=== PATIENT | female | born 1990 | race Caucasian/White ===

== ENCOUNTER → 2017-01-22 | Outpatient (CLI) | payer OTHER ==
--- NOTE | 2017-01-22 15:55 | US ---
EXAMINATION TYPE: US OB <= 14 wk fetus DATE OF EXAM: 01/22/2017 3:30 PM COMPARISON: NONE CLINICAL HISTORY: Z36 CONFIRM DATES. Confirm Dates, pt has no complaints at this time EXAM PERFORMED: Transabdominal (TA) EXAM MEASUREMENTS: GESTATIONAL AGE / DATING Physician Established: (12 weeks/4 days) EDC: 08/02/2017 Dates by LMP: Unknown Dates by First Scan: No prior Dates by Current Scan for: (12 weeks/1 days) EDC: 08/05/2017 MATERNAL ANATOMY Uterus: 11.0 x 5.6 x 7.8 Right Ovary: 3.5 x 2.1 x 3.0 cm Left Ovary: 3.3 x 1.6 x 2.8 Post CDS / Adnexa: wnl Presence of free fluid: No Presence of subchorionic bleed: No GESTATION / SURVEY CRL: 5.5 cm (12 weeks/1 days) MSD: wnl Heart Rate: 178 bpm Rhythm: Normal IUP: Viable IUP TECHNOLOGIST IMPRESSION: Single, viable IUP/ No abnormality seen at this time IMPRESSION: Single viable intrauterine corresponding to ultrasound age 12 weeks 1 day with estimated da te of delivery 05 August 2017 by today's exam
== END | disposition home or self-care (01) ==
LOC: RADUSWWP 15:16
PROVIDERS: ATTEND Obstetrics & Gynecology
DX: Z36 Encounter for antenatal screening of mother (principal); Z3A.12 12 weeks gestation of pregnancy
CPT/HCPCS: 76801

== ENCOUNTER → 2017-02-04 | Outpatient (CLI) | payer OTHER ==
[2017-02-04 14:35] LABS: CH 30.4; CHCM 35.7; HCT 36.2 % (34.0-46.0); HDW 2.74; HGB 13.3 gm/dL (11.4-16.0); MCH 31.3 pg (25.0-35.0); MCHC 36.6 g/dL (31.0-37.0); MCV 85.5 fL (80.0-100.0); Mean Platelet Volume 8.1; RBC 4.24 m/uL (3.80-5.40)
[2017-02-04 14:45] LABS: Glucose 81 mg/dL (74-99); Non-African American GFR(MDRD) >60 (>60 ml/min/1.73 sqM)
[2017-02-04 15:15] LABS: Hepatitis B Surface Ag Index 0.05
[2017-02-05 08:16] LABS: HIV-1/HIV-2 Ab Screen NONREAC (NON REAC)
== END | disposition home or self-care (01) ==
LOC: LABWHC1 14:09
PROVIDERS: ATTEND Obstetrics & Gynecology
DX: Z34.82 Encounter for supervision of other normal pregnancy, second trimester (principal); Z3A.00 Weeks of gestation of pregnancy not specified
CPT/HCPCS: 36415; 82565; 82947; 85027; 86762; 86780; 86850; 86900; 86901; 87340; 87389

== ENCOUNTER 2017-02-11 22:31 | Emergency (ER) | payer OTHER ==
[2017-02-11] MEDS ORDERED: SODIUM CHLORIDE 0.9% 1,000 ML IV ONE (23:36)
--- NOTE | 2017-02-11 23:44 | ED ---
General Adult HPI - General Chief complaint: Syncope Stated complaint: Blackouts (15wk preg) Time Seen by Provider: 02/11/17 23:17 Source: patient Mode of arrival: ambulatory Limitations: no limitations - History of Present Illness Initial comments: This patient is a 26-year-old woman who presents to be evaluated for a couple of what her fianc is calling episodes. He describes 2 periods lasting each somewhere around 10-15 minutes, where he was not able to gain her attention. In the first episode she was sitting on the couch and she appeared to be looking down and also scratching her wrist at the same time. He states that he attempted to gain her attention but she seemed to ignore him and this lasted for somewhere around 10-15 minutes. Following that she was appropriately responsive. She did not have any complaints. They later went to bed and while she was lying in bed she had another similar episode. The patient does not have memory of these 2 episodes. She currently is alert and is denying any complaints. She is not having any pains. She is not having dyspnea. She denies any change in urination or any vaginal discharge. She states that she believes she is about 15 weeks but is not having any abdominal pains. She has not had change in bowel movements. -: hour(s) Consistency: now resolved Improves with: none Worsens with: none Associated Symptoms: denies other symptoms Treatments Prior to Arrival: none - Related Data Home Medications Medication Instructions Recorded Confirmed Fsy-Hhbu-Fithx Acid 1 cap PO DAILY 02/11/17 02/11/17 [-U Capsule (formulary)] Previous Rx's Medication Instructions Recorded Amoxicillin 500 mg PO Q8H #21 capsule 02/12/17 Allergies Allergy/AdvReac Type Severity Reaction Status Date / Time bupropion HCl Allergy Unknown Verified 02/11/17 23:12 [From Wellbutrin] citalopram hydrobromide Allergy Unknown Verified 02/11/17 23:12 [From Celexa] duloxetine HCl Allergy Unknown Verified 02/11/17 23:12 [From Cymbalta] escitalopram oxalate Allergy Unknown Verified 02/11/17 23:12 [From Lexapro] Review of Systems ROS Statement: Those systems with pertinent positive or pertinent negative responses have been documented in the HPI. ROS Other: All systems not noted in ROS Statement are negative. Constitutional: Denies: fever, chills Respiratory: Denies: cough, dyspnea Cardiovascular: Denies: chest pain, palpitations Gastrointestinal: Denies: abdominal pain, vomiting, diarrhea Genitourinary: Denies: dysuria Musculoskeletal: Denies: back pain Skin: Denies: rash Neurological: Denies: headache, weakness, numbness Past Medical History Past Medical History: No Reported History Additional Past Medical History / Comment(s): Gilbert's syndrome, Raynaud History of Any Multi-Drug Resistant Organisms: None Reported Past Surgical History: Cholecystectomy, Orthopedic Surgery Additional Past Surgical History / Comment(s): Left ring finger surgery Past Anesthesia/Blood Transfusion Reactions: No Reported Reaction Past Psychological History: ADD/ADHD, Anxiety, Bipolar, Depression, Panic Disorder, PTSD Additional Psychological History / Comment(s): Patient is open with [facility]. Smoking Status: Current every day smoker Past Alcohol Use History: None Reported Additional Past Alcohol Use History / Comment(s): She is a smoker of 1PPD x 10 years. Past Drug Use History: Marijuana Additional Drug Use History / Comment(s): daily marijuana use, past hx. drug use -not currently - Past Family History Father Family Medical History: COPD, Coronary Artery Disease (CAD) Additional Family Medical History / Comment(s): Father is alive at 67 years of age with history of CAD and COPD Mother Family Medical History: Diabetes Mellitus, Hypertension Additional Family Medical History / Comment(s): Mother is alive with history of DM and HTN. Brother(s) Additional Family Medical History / Comment(s): Patient has 5 siblings with no major medical problems. General Exam Limitations: no limitations General appearance: alert, in no apparent distress Head exam: Present: atraumatic, normocephalic Eye exam: Present: normal appearance. Absent: scleral icterus, conjunctival injection ENT exam: Present: normal oropharynx Neck exam: Present: normal inspection, full ROM Respiratory exam: Present: normal lung sounds bilaterally. Absent: respiratory distress, wheezes, rales, rhonchi, stridor Cardiovascular Exam: Present: regular rate, normal rhythm, normal heart sounds. Absent: systolic murmur, diastolic murmur, rubs, gallop GI/Abdominal exam: Present: soft. Absent: distended, tenderness, guarding, rebound, mass Extremities exam: Present: normal inspection, normal capillary refill. Absent: pedal edema, calf tenderness Back exam: Present: normal inspection. Absent: CVA tenderness (R), CVA tenderness (L) Neurological exam: Present: alert, oriented X3, CN II-XII intact, normal gait. Absent: motor sensory deficit Skin exam: Present: warm, dry, intact, normal color. Absent: rash Course Vital Signs 02/11/17 02/12/17 23:00 00:58 Temperature 98.7 F 98.9 F Pulse Rate 100 70 Respiratory 20 18 Rate Blood Pressure 121/71 104/55 O2 Sat by Pulse 98 98 Oximetry Medical Decision Making - Lab Data Result diagrams: 02/11/17 23:35 02/11/17 23:35 Lab Results 02/11/17 02/11/17 02/11/17 Range/Units 23:35 23:35 23:35 WBC 12.6 H (3.8-10.6) k/uL RBC 4.29 (3.80-5.40) m/uL Hgb 13.1 (11.4-16.0) gm/dL Hct 36.8 (34.0-46.0) % MCV 85.8 (80.0-100.0) fL MCH 30.6 (25.0-35.0) pg MCHC 35.7 (31.0-37.0) g/dL RDW 13.0 (11.5-15.5) % Plt Count 173 (150-450) k/uL Neutrophils % 61 % Lymphocytes % 31 % Monocytes % 5 % Eosinophils % 1 % Basophils % 0 % Neutrophils # 7.6 (1.3-7.7) k/uL Lymphocytes # 3.9 (1.0-4.8) k/uL Monocytes # 0.7 (0-1.0) k/uL Eosinophils # 0.1 (0-0.7) k/uL Basophils # 0.0 (0-0.2) k/uL Sodium 135 L (137-145) mmol/L Potassium 3.6 (3.5-5.1) mmol/L Chloride 103 (98-107) mmol/L Carbon Dioxide 23 (22-30) mmol/L Anion Gap 9 mmol/L BUN 6 L (7-17) mg/dL Creatinine 0.50 L (0.52-1.04) mg/dL Est GFR (MDRD) Af Amer >60 (>60 ml/min/1.73 sqM) Est GFR (MDRD) Non-Af >60 (>60 ml/min/1.73 sqM) Glucose 85 (74-99) mg/dL Calcium 9.2 (8.4-10.2) mg/dL Total Bilirubin 1.0 (0.2-1.3) mg/dL AST 14 (14-36) U/L ALT 24 (9-52) U/L Alkaline Phosphatase 79 (38-126) U/L Total Protein 6.6 (6.3-8.2) g/dL Albumin 3.8 (3.5-5.0) g/dL Urine Color Yellow Urine Appearance Cloudy H (Clear) Urine pH 6.0 (5.0-8.0) Ur Specific [place] 1.020 (1.001-1.035) Urine Protein Trace H (Negative) Urine Glucose (UA) Negative (Negative) Urine Ketones Negative (Negative) Urine Blood Trace H (Negative) Urine Nitrite Negative (Negative) Urine Bilirubin Negative (Negative) Urine Urobilinogen 4.0 (<2.0) mg/dL Ur Leukocyte Esterase Moderate H (Negative) Urine RBC 19 H (0-5) /hpf Urine WBC 16 H (0-5) /hpf Ur Squamous Epith Cells 18 H (0-4) /hpf Calcium Oxalate Crystal Occasional H (None) /hpf Urine Bacteria Occasional H (None) /hpf Urine Mucus Few H (None) /hpf Urine Opiates Screen Not Detected (NotDetected) Ur Oxycodone Screen Not Detected (NotDetected) Urine Methadone Screen Not Detected (NotDetected) Ur Propoxyphene Screen Not Detected (NotDetected) Ur Barbiturates Screen Not Detected (NotDetected) U Tricyclic Antidepress Not Detected (NotDetected) Ur Phencyclidine Scrn Not Detected (NotDetected) Ur Amphetamines Screen Not Detected (NotDetected) U Methamphetamines Scrn Not Detected (NotDetected) U Benzodiazepines Scrn Not Detected (NotDetected) Urine Cocaine Screen Not Detected (NotDetected) U Marijuana (THC) Screen Detected H (NotDetected) Disposition Clinical Impression: UTI (lower urinary tract infection), Episode of altered consciousness Disposition: HOME SELF-CARE Condition: Good Instructions: Urinary Tract Infection in (ED) Prescriptions: Amoxicillin 500 mg PO Q8H #21 capsule Referrals: Abhay Tan MD [Primary Care Provider] - 1-2 days Lalo Rosado MD [STAFF PHYSICIAN] - 1-2 days
[2017-02-12 00:06] LABS: Appearance,Urine Cloudy (Clear); Bacteria,Urine Occasional /hpf; Basophils % (A) 0 %; Bilirubin,Urine Negative (Negative); CH 30.4; CHCM 35.5; Calcium Oxalate Crystals,Urine Occasional /hpf; Eosinophils # (A) 0.1 k/uL (0-0.7); Eosinophils % (A) 1 %; Glucose,Urine (UA) Negative (Negative); HCT 36.8 % (34.0-46.0); HGB 13.1 gm/dL (11.4-16.0); Ketones,Urine Negative (Negative); Leukocyte Esterase,Urine Moderate (Negative); Luc # (Auto) 0.27; Luc % (Auto) 2; Lymphocytes # (A) 3.9 k/uL (1.0-4.8); Lymphocytes % (A) 31 %; MCH 30.6 pg (25.0-35.0); MCHC 35.7 g/dL (31.0-37.0); MCV 85.8 fL (80.0-100.0); Mean Platelet Volume 7.4; Monocytes # (A) 0.7 k/uL (0-1.0); Monocytes % (A) 5 %; Mucus,Urine Few /hpf; Neutrophils # (A) 7.6 k/uL (1.3-7.7); Neutrophils % (A) 61 %; Nitrite,Urine Negative (Negative); Particle Count 9232; Protein,Urine Trace (Negative); RBC 4.29 m/uL (3.80-5.40); RBC,Urine 19 /hpf (0-5); Squamous Epithelial Cell,Urine 18 /hpf (0-4); UA Billing (MACRO vs. MICRO) MICRO; WBC 12.6 k/uL (3.8-10.6); WBC (Perox) 12.77; WBC,Urine 16 /hpf (0-5)
[2017-02-12 00:12] LABS: ALT 24 U/L (9-52); AST 14 U/L (14-36); Alkaline Phosphatase 79 U/L (38-126); Anion Gap 9 mmol/L; Blood Urea Nitrogen 6 mg/dL (7-17); Calcium 9.2 mg/dL (8.4-10.2); Carbon Dioxide 23 mmol/L (22-30); Chloride 103 mmol/L (98-107); Glucose 85 mg/dL (74-99); Non-African American GFR(MDRD) >60 (>60 ml/min/1.73 sqM); Potassium 3.6 mmol/L (3.5-5.1); Sodium 135 mmol/L (137-145); Total Protein 6.6 g/dL (6.3-8.2)
[2017-02-12 00:59] VITALS: BP 104/55; PULSE 70; RESP 18; TEMP 98.9
[2017-02-12] MEDS ORDERED: AMOXICILLIN 500 MG CAP PO STA (01:24)
== END 2017-02-12 01:43 | disposition home or self-care (01) ==
LOC: EC 22:31
DX: O23.42 Unspecified infection of urinary tract in pregnancy, second trimester (principal); O99.89 Other specified diseases and conditions complicating pregnancy, childbirth and the puerperium; R40.4 Transient alteration of awareness; O99.332 Smoking (tobacco) complicating pregnancy, second trimester; F17.200 Nicotine dependence, unspecified, uncomplicated; Z88.8 Allergy status to other drugs, medicaments and biological substances; Z3A.15 15 weeks gestation of pregnancy; Z79.899 Other long term (current) drug therapy
CPT/HCPCS: 36415; 80053; 80306; 81001; 85025; 96360; 99284

== ENCOUNTER 2017-03-08 20:01 | Emergency (ER) | payer OTHER ==
[2017-03-08 20:20] VITALS: RESP 18
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
[2017-03-08 21:43] LABS: Basophils # (A) 0.1 k/uL (0-0.2); Basophils % (A) 0 %; CH 31.6; CHCM 35.1; Eosinophils # (A) 0.1 k/uL (0-0.7); Eosinophils % (A) 1 %; HDW 2.54; HGB 12.5 gm/dL (11.4-16.0); Luc # (Auto) 0.21; Luc % (Auto) 2; Lymphocytes % (A) 31 %; MCH 31.4 pg (25.0-35.0); MCHC 34.7 g/dL (31.0-37.0); MCV 90.5 fL (80.0-100.0); Monocytes # (A) 0.5 k/uL (0-1.0); Monocytes % (A) 4 %; Neutrophils % (A) 62 %; RBC 3.98 m/uL (3.80-5.40); RDW 13.1 % (11.5-15.5); WBC 12.8 k/uL (3.8-10.6)
[2017-03-08 21:50] LABS: Appearance,Urine Clear (Clear); Bilirubin,Urine Negative (Negative); Glucose,Urine (UA) Negative (Negative); Ketones,Urine Negative (Negative); Leukocyte Esterase,Urine Negative (Negative); Nitrite,Urine Negative (Negative); PH, Urine 6.5 (5.0-8.0); Protein,Urine Negative (Negative); Specific Gravity,Urine 1.007 (1.001-1.035); UA Billing (MACRO vs. MICRO) CHEM; Urobilinogen,Urine <2.0 mg/dL (<2.0)
[2017-03-08 21:59] LABS: ALT 20 U/L (9-52); AST 14 U/L (14-36); Alkaline Phosphatase 83 U/L (38-126); Anion Gap 10 mmol/L; Blood Urea Nitrogen 3 mg/dL (7-17); Calcium 9.2 mg/dL (8.4-10.2); Carbon Dioxide 23 mmol/L (22-30); Chloride 106 mmol/L (98-107); Glucose 77 mg/dL (74-99); Non-African American GFR(MDRD) >60 (>60 ml/min/1.73 sqM); Potassium 3.2 mmol/L (3.5-5.1); Sodium 139 mmol/L (137-145); Total Bilirubin 0.9 mg/dL (0.2-1.3); Total Protein 6.6 g/dL (6.3-8.2)
[2017-03-08 22:16] LABS: HCG,Quantitative Serum 11598.3 mIU/mL
[2017-03-08 23:56] VITALS: BP 106/57; PULSE 75; TEMP 98.2
--- NOTE | 2017-03-09 00:09 | US ---
EXAM: US After First Trimester, Transabdominal. CLINICAL HISTORY: Reason: Pain TECHNIQUE: Real-time transabdominal obstetrical ultrasound of the maternal pelvis and a second or third trimester with image documentation. COMPARISON: No relevant prior studies available. FINDINGS: Fetus: no visualized anomalies Heart rate: heart rate is measured at 165 bpm. Presentation:transverse Placenta: Unremarkable. No abruption. Amniotic fluid: Amniotic fluid index measures 12.3 cm. Anatomy: Visualized anatomy is normal. BIOMETRICS EDC: growth indices correspond to an approximate sonographic age of 18 weeks and 4 days. Approximate EDC by this ultrasound is 08/05/17. GA by US: 18 weeks and 4 days. EFW: 258 grams MATERNAL: Uterus: Unremarkable. No myometrial mass. Cervix: Unremarkable as visualized. Closed. Free fluid: No free fluid. IMPRESSION: Single live intrauterine gestation corresponding to an approximate sonographic age of 18 weeks and 4 days. Approximate EDC by this ultrasound is 08/05/17.
== END 2017-03-08 23:55 | disposition home or self-care (01) ==
LOC: EC 20:01
DX: O99.89 Other specified diseases and conditions complicating pregnancy, childbirth and the puerperium (principal); R10.31 Right lower quadrant pain; Z3A.24 24 weeks gestation of pregnancy; F17.200 Nicotine dependence, unspecified, uncomplicated; Z88.8 Allergy status to other drugs, medicaments and biological substances; Z79.899 Other long term (current) drug therapy; Z90.49 Acquired absence of other specified parts of digestive tract
CPT/HCPCS: 36415; 76805; 80053; 81003; 84702; 85025; 86900; 86901; 99284

== ENCOUNTER 2017-03-13 00:16 | Emergency (ER) | payer OTHER ==
--- NOTE | 2017-03-13 01:56 | ED ---
General Adult HPI - General Chief complaint: Abdominal Pain Stated complaint: Spotting, abd pain Time Seen by Provider: 03/13/17 00:52 Source: patient, RN notes reviewed Mode of arrival: wheelchair Limitations: no limitations - History of Present Illness Initial comments: Patient is a 26-year-old female since emergency room for evaluation of vaginal spotting. Patient states is about 19 weeks . Patient is . Patient states this first time that she noticed spotting since her . Patient states she has a confirmed IUP. Patient states she's been following up with Dr. Krishnan. Patient states been having minimal cramping in her abdomen. Patient states the spotting began shortly before arrival here. Patient denies passing any clots. Patient denies chest pain or shortness of breath. Patient denies headache or dizziness. Patient denies nausea or vomiting. Patient states the spotting worried her so she thought she should be evaluated. Patient denies any other symptoms or complaints at this time. Patient denies pain or burning during urination, trouble urinating or blood in urine. Patient denies history of STDs. - Related Data Home Medications Medication Instructions Recorded Confirmed Gmd-Bvzy-Ehiva Acid 1 cap PO DAILY 02/11/17 03/13/17 [-U Capsule (formulary)] Allergies Allergy/AdvReac Type Severity Reaction Status Date / Time bupropion HCl Allergy Unknown Verified 03/13/17 00:29 [From Wellbutrin] citalopram hydrobromide Allergy Unknown Verified 03/13/17 00:29 [From Celexa] duloxetine HCl Allergy Unknown Verified 03/13/17 00:29 [From Cymbalta] escitalopram oxalate Allergy Unknown Verified 03/13/17 00:29 [From Lexapro] Review of Systems ROS Statement: Those systems with pertinent positive or pertinent negative responses have been documented in the HPI. ROS Other: All systems not noted in ROS Statement are negative. Past Medical History Past Medical History: No Reported History Additional Past Medical History / Comment(s): Gilbert's syndrome, Raynaud History of Any Multi-Drug Resistant Organisms: None Reported Past Surgical History: Cholecystectomy, Orthopedic Surgery Additional Past Surgical History / Comment(s): Left ring finger surgery Past Anesthesia/Blood Transfusion Reactions: No Reported Reaction Past Psychological History: ADD/ADHD, Anxiety, Bipolar, Depression, Panic Disorder, PTSD Additional Psychological History / Comment(s): Patient is open with [facility]. Smoking Status: Current every day smoker Past Alcohol Use History: None Reported Additional Past Alcohol Use History / Comment(s): She is a smoker of 1PPD x 10 years. Past Drug Use History: None Reported Additional Drug Use History / Comment(s): daily marijuana use, past hx. drug use -not currently - Past Family History Father Family Medical History: COPD, Coronary Artery Disease (CAD) Additional Family Medical History / Comment(s): Father is alive at 67 years of age with history of CAD and COPD Mother Family Medical History: Diabetes Mellitus, Hypertension Additional Family Medical History / Comment(s): Mother is alive with history of DM and HTN. Brother(s) Additional Family Medical History / Comment(s): Patient has 5 siblings with no major medical problems. General Exam - General Exam Comments Initial Comments: Sitting in exam room, no acute distress. Limitations: no limitations General appearance: alert, in no apparent distress Head exam: Present: atraumatic, normocephalic, normal inspection Eye exam: Present: normal appearance ENT exam: Present: normal exam Neck exam: Present: normal inspection Respiratory exam: Present: normal lung sounds bilaterally. Absent: respiratory distress Cardiovascular Exam: Present: regular rate, normal rhythm, normal heart sounds GI/Abdominal exam: Present: soft, normal bowel sounds. Absent: distended, tenderness, guarding, rebound, rigid External exam: Present: normal external exam Speculum exam: Present: normal speculum exam, vaginal discharge. Absent: vaginal bleeding By manual exam: Present: normal by manual exam Extremities exam: Present: normal inspection Back exam: Present: normal inspection Neurological exam: Present: alert, oriented X3, CN II-XII intact, normal gait Psychiatric exam: Present: normal affect, normal mood Skin exam: Present: warm, dry, intact, normal color. Absent: rash Course Vital Signs 03/13/17 03/13/17 00:27 03:00 Temperature 98.0 F 98.4 F Pulse Rate 18 L 72 Respiratory 18 16 Rate Blood Pressure 111/56 118/76 O2 Sat by Pulse 100 98 Oximetry Medical Decision Making - Medical Decision Making Patient is a 26-year-old female presents emergency room for evaluation of vaginal spotting. Patient is about 19 weeks . Patient is . No bleeding noted on pelvic exam. Patient denies any pain at the moment. heart tones within normal limits. Type and screen was ordered last week and she is B positive. Advised patient to follow-up with [facility]. Patient states she understands everything that was discussed with her. Return parameters discussed. Case discussed with Dr. Boston. - Lab Data Result diagrams: 03/13/17 01:50 03/13/17 01:50 Lab Results 03/13/17 03/13/17 03/13/17 Range/Units 01:50 01:50 01:50 WBC 11.2 H (3.8-10.6) k/uL RBC 3.71 L (3.80-5.40) m/uL Hgb 11.4 (11.4-16.0) gm/dL Hct 33.3 L (34.0-46.0) % MCV 89.7 (80.0-100.0) fL MCH 30.7 (25.0-35.0) pg MCHC 34.2 (31.0-37.0) g/dL RDW 13.0 (11.5-15.5) % Plt Count 158 (150-450) k/uL Neutrophils % 59 % Lymphocytes % 33 % Monocytes % 5 % Eosinophils % 1 % Basophils % 0 % Neutrophils # 6.7 (1.3-7.7) k/uL Lymphocytes # 3.8 (1.0-4.8) k/uL Monocytes # 0.5 (0-1.0) k/uL Eosinophils # 0.1 (0-0.7) k/uL Basophils # 0.0 (0-0.2) k/uL Sodium 137 (137-145) mmol/L Potassium 3.4 L (3.5-5.1) mmol/L Chloride 106 (98-107) mmol/L Carbon Dioxide 23 (22-30) mmol/L Anion Gap 8 mmol/L BUN 5 L (7-17) mg/dL Creatinine 0.50 L (0.52-1.04) mg/dL Est GFR (MDRD) Af Amer >60 (>60 ml/min/1.73 sqM) Est GFR (MDRD) Non-Af >60 (>60 ml/min/1.73 sqM) Glucose 89 (74-99) mg/dL Calcium 8.9 (8.4-10.2) mg/dL Total Bilirubin 0.5 (0.2-1.3) mg/dL AST 11 L (14-36) U/L ALT 22 (9-52) U/L Alkaline Phosphatase 75 (38-126) U/L Total Protein 5.6 L (6.3-8.2) g/dL Albumin 3.1 L (3.5-5.0) g/dL Amylase 39 (30-110) U/L Lipase 53 (23-300) U/L Urine Color Yellow Urine Appearance Clear (Clear) Urine pH 6.0 (5.0-8.0) Ur Specific [place] 1.006 (1.001-1.035) Urine Protein Negative (Negative) Urine Glucose (UA) Negative (Negative) Urine Ketones Negative (Negative) Urine Blood Negative (Negative) Urine Nitrite Negative (Negative) Urine Bilirubin Negative (Negative) Urine Urobilinogen <2.0 (<2.0) mg/dL Ur Leukocyte Esterase Negative (Negative) Trichomonas Ag (Rapid) (Negative) 03/13/17 Range/Units 02:30 WBC (3.8-10.6) k/uL RBC (3.80-5.40) m/uL Hgb (11.4-16.0) gm/dL Hct (34.0-46.0) % MCV (80.0-100.0) fL MCH (25.0-35.0) pg MCHC (31.0-37.0) g/dL RDW (11.5-15.5) % Plt Count (150-450) k/uL Neutrophils % % Lymphocytes % % Monocytes % % Eosinophils % % Basophils % % Neutrophils # (1.3-7.7) k/uL Lymphocytes # (1.0-4.8) k/uL Monocytes # (0-1.0) k/uL Eosinophils # (0-0.7) k/uL Basophils # (0-0.2) k/uL Sodium (137-145) mmol/L Potassium (3.5-5.1) mmol/L Chloride (98-107) mmol/L Carbon Dioxide (22-30) mmol/L Anion Gap mmol/L BUN (7-17) mg/dL Creatinine (0.52-1.04) mg/dL Est GFR (MDRD) Af Amer (>60 ml/min/1.73 sqM) Est GFR (MDRD) Non-Af (>60 ml/min/1.73 sqM) Glucose (74-99) mg/dL Calcium (8.4-10.2) mg/dL Total Bilirubin (0.2-1.3) mg/dL AST (14-36) U/L ALT (9-52) U/L Alkaline Phosphatase (38-126) U/L Total Protein (6.3-8.2) g/dL Albumin (3.5-5.0) g/dL Amylase (30-110) U/L Lipase (23-300) U/L Urine Color Urine Appearance (Clear) Urine pH (5.0-8.0) Ur Specific [place] (1.001-1.035) Urine Protein (Negative) Urine Glucose (UA) (Negative) Urine Ketones (Negative) Urine Blood (Negative) Urine Nitrite (Negative) Urine Bilirubin (Negative) Urine Urobilinogen (<2.0) mg/dL Ur Leukocyte Esterase (Negative) Trichomonas Ag (Rapid) Negative (Negative) Disposition Clinical Impression: Threatened miscarriage Disposition: HOME SELF-CARE Condition: Good Instructions: Threatened Miscarriage (ED) Additional Instructions: Refrain from sexual intercourse or heavy lifting for the next 7-10 days. Please follow-up with [facility] in 24-48 hours. If any new symptom arises or symptoms worsen, return to ER as soon as possible. Referrals: Gabriel Campos MD [Primary Care Provider] - 1-2 days Marlen Krishnan DO [Doctor of Osteopathic Medicine] - 1-2 days Time of Disposition: 02:28
[2017-03-13 02:03] LABS: Appearance,Urine Clear (Clear); Basophils % (A) 0 %; Bilirubin,Urine Negative (Negative); CH 31.8; CHCM 35.6; Eosinophils # (A) 0.1 k/uL (0-0.7); Eosinophils % (A) 1 %; Glucose,Urine (UA) Negative (Negative); HCT 33.3 % (34.0-46.0); HDW 2.56; HGB 11.4 gm/dL (11.4-16.0); Ketones,Urine Negative (Negative); Leukocyte Esterase,Urine Negative (Negative); Luc # (Auto) 0.19; Luc % (Auto) 2; Lymphocytes # (A) 3.8 k/uL (1.0-4.8); Lymphocytes % (A) 33 %; MCH 30.7 pg (25.0-35.0); MCHC 34.2 g/dL (31.0-37.0); MCV 89.7 fL (80.0-100.0); Mean Platelet Volume 7.8; Monocytes # (A) 0.5 k/uL (0-1.0); Monocytes % (A) 5 %; Neutrophils # (A) 6.7 k/uL (1.3-7.7); Neutrophils % (A) 59 %; Nitrite,Urine Negative (Negative); Protein,Urine Negative (Negative); RBC 3.71 m/uL (3.80-5.40); Specific Gravity,Urine 1.006 (1.001-1.035); UA Billing (MACRO vs. MICRO) CHEM; Urobilinogen,Urine <2.0 mg/dL (<2.0); WBC 11.2 k/uL (3.8-10.6); WBC (Perox) 10.91
[2017-03-13 02:14] LABS: ALT 22 U/L (9-52); AST 11 U/L (14-36); Alkaline Phosphatase 75 U/L (38-126); Amylase 39 U/L (30-110); Anion Gap 8 mmol/L; Blood Urea Nitrogen 5 mg/dL (7-17); Calcium 8.9 mg/dL (8.4-10.2); Carbon Dioxide 23 mmol/L (22-30); Chloride 106 mmol/L (98-107); Glucose 89 mg/dL (74-99); Non-African American GFR(MDRD) >60 (>60 ml/min/1.73 sqM); Potassium 3.4 mmol/L (3.5-5.1); Sodium 137 mmol/L (137-145); Total Bilirubin 0.5 mg/dL (0.2-1.3); Total Protein 5.6 g/dL (6.3-8.2)
[2017-03-13 03:01] VITALS: BP 118/76; PULSE 72; RESP 16; TEMP 98.4
== END 2017-03-13 03:01 | disposition home or self-care (01) ==
LOC: EC 00:16
DX: O20.0 Threatened abortion (principal); Z3A.19 19 weeks gestation of pregnancy; F17.200 Nicotine dependence, unspecified, uncomplicated; Z79.899 Other long term (current) drug therapy; Z88.8 Allergy status to other drugs, medicaments and biological substances
CPT/HCPCS: 36415; 80053; 81003; 82150; 83690; 85025; 87070; 87205; 87491; 87591; 87808; 99284

== ENCOUNTER 2017-06-09 03:38 | Inpatient (IN) | payer OTHER ==
[2017-06-09] MEDS ORDERED: LIDOCAINE 1% (PF) 10 MG/ML (30 ML SDV) SQ PRN (03:55)
[2017-06-09] MEDS ORDERED: TERBUTALINE 1 MG/ML VIAL SQ PRN (03:55)
[2017-06-09] MEDS ORDERED: OXYTOCIN 10 UNIT/ML 1 ML VIAL IM PRN (03:55)
[2017-06-09] MEDS ORDERED: CARBOPROST TROMETHAMINE 250 MCG/ML 1 ML AMP IM PRN (03:55)
[2017-06-09] MEDS ORDERED: METHYLERGONOVINE 0.2 MG/ML 1 ML AMP IM PRN (03:55)
[2017-06-09] MEDS ORDERED: LACTATED RINGERS 1,000 ML IV SCH ×2 (04:00)
[2017-06-09] MEDS ORDERED: AMPICILLIN 2,000 MG in SODIUM CHLORIDE 0.9% 100 ML IVPB STA (04:14)
[2017-06-09] MEDS ORDERED: BETAMET ACET-BETAMETH SOD PHOS 6 MG/ML VIAL IM SCH (04:15)
[2017-06-09 04:29] LABS: Basophils % (A) 0 %; CH 31.7; Eosinophils # (A) 0.1 k/uL (0-0.7); Eosinophils % (A) 1 %; HCT 36.3 % (34.0-46.0); HDW 2.64; HGB 12.5 gm/dL (11.4-16.0); Luc # (Auto) 0.27; Luc % (Auto) 2; Lymphocytes # (A) 2.7 k/uL (1.0-4.8); Lymphocytes % (A) 19 %; MCH 31.3 pg (25.0-35.0); MCHC 34.5 g/dL (31.0-37.0); MCV 90.8 fL (80.0-100.0); Mean Platelet Volume 8.2; Monocytes # (A) 0.7 k/uL (0-1.0); Monocytes % (A) 5 %; Neutrophils # (A) 10.3 k/uL (1.3-7.7); Neutrophils % (A) 74 %; RBC 3.99 m/uL (3.80-5.40); RDW 12.8 % (11.5-15.5); WBC 14.1 k/uL (3.8-10.6); WBC (Perox) 14.62
[2017-06-09 04:55] LABS: INR 0.9 (<1.2); Partial Thromboplastin Time 23.7 sec (22.0-30.0); Prothrombin Time 9.4 sec (9.0-12.0)
--- NOTE | 2017-06-09 05:00 | P.HPOB ---
History of Present Illness H&P Date: 06/09/17 Chief Complaint: Contractions This is a 26-year-old female 1 para 0 at 32-2/7 weeks with an estimated date of confinement of 08/02/2017, who presented to labor and delivery by EMS after feeling contractions through the night. She started feeling some contractions at approximately 8 PM but went to bed and then woke up with them at about midnight. They became stronger and then she called EMS at approximately 2:30 in the morning. Upon arrival she was found to be lillian every 3-4 minutes with some bloody show. Her care has been with Dr. Krishnan and has been complicated by a shortened cervix. She has been followed with maternal medicine as recently as last week. There has been no change in the cervical length and she has not been on any other medications during the . She did have a LEEP procedure in the past. She is not receive steroids during this . Obstetrical history: First Gynecologic history: No history of sexual transmitted diseases other than HPV on her Pap. Review of Systems Constitutional: Denies chills, Denies fever Eyes: denies blurred vision, denies pain Cardiovascular: Denies chest pain, Denies shortness of breath Respiratory: Denies cough Gastrointestinal: Reports abdominal pain (Contractions) Genitourinary: Reports abnormal vaginal bleeding, Reports pelvic pain, Reports Musculoskeletal: Reports low back pain Neurological: Denies numbness, Denies weakness Psychiatric: Reports anxiety, Reports depression Past Medical History Past Medical History: No Reported History Additional Past Medical History / Comment(s): Gilbert's syndrome, Raynaud History of Any Multi-Drug Resistant Organisms: None Reported Past Surgical History: Cholecystectomy, Orthopedic Surgery Additional Past Surgical History / Comment(s): Left ring finger surgery Past Anesthesia/Blood Transfusion Reactions: No Reported Reaction Past Psychological History: Bipolar Smoking Status: Current every day smoker Past Alcohol Use History: None Reported Past Drug Use History: Marijuana (Last used approximate 3 weeks ago per patient) - Past Family History Father Family Medical History: COPD, Coronary Artery Disease (CAD) Additional Family Medical History / Comment(s): Father is alive at 67 years of age with history of CAD and COPD Mother Family Medical History: Diabetes Mellitus, Hypertension Additional Family Medical History / Comment(s): Mother is alive with history of DM and HTN. Brother(s) Additional Family Medical History / Comment(s): Patient has 5 siblings with no major medical problems. Medications and Allergies Home Medications Medication Instructions Recorded Confirmed Type Ypo-Dcfv-Diyxi Acid 1 cap PO DAILY 02/11/17 03/13/17 History [-U Capsule (formulary)] Allergies Allergy/AdvReac Type Severity Reaction Status Date / Time bupropion HCl Allergy Unknown Verified 06/09/17 03:55 [From Wellbutrin] citalopram hydrobromide Allergy Unknown Verified 06/09/17 03:55 [From Celexa] duloxetine HCl Allergy Unknown Verified 06/09/17 03:55 [From Cymbalta] escitalopram oxalate Allergy Unknown Verified 06/09/17 03:55 [From Lexapro] Exam Osteopathic Statement: *. No significant issues noted on an osteopathic structural exam other than those noted in the History and Physical/Consult. - Vital Signs Vital signs: Intake and Output 06/08/17 06/08/17 06/09/17 14:59 22:59 06:59 Other: Weight 78.018 kg Patient Weight 06/09/17 06:59 Weight 78.018 kg HEENT: Within normal limits Heart: Regular rate and rhythm Lungs: Clear to auscultation bilaterally Abdomen: Cervix: Initially in triage is 6-7 cm/90%/bulging bag, presenting part not palpable. Upon my arrival, bedside ultrasound did confirm vertex presentation and she is noted to be completely dilated. Artificial rupture membranes is carried out with essentially clear fluid noted. heart tones: Reactive Contractions: Every 2-3 minutes Extremities: Negative Homans Results Result Diagrams: 06/09/17 04:15 Abnormal Lab Results - Last 24 Hours (Table) 06/09/17 Range/Units 04:15 WBC 14.1 H (3.8-10.6) k/uL Neutrophils # 10.3 H (1.3-7.7) k/uL Assessment and Plan (1) 32 weeks gestation of Status: Acute (2) labor in second trimester with delivery in third trimester Status: Acute Plan: Plan is admission for active labor. She was given 1 dose of Celestone while in triage. Pediatrics was notified. Expectant management.
--- NOTE | 2017-06-09 05:02 | P.PROBDLV ---
Vaginal Delivery Note - . Vaginal Delivery Note: The patient progressed to complete dilation prior to my arrival. Once I arrived I did perform artificial rupture membranes and clear fluid was noted. At this time she began pushing. She pushed for a couple pushes and infant's head came to a crown and then delivered across the perineum followed by a nuchal hand and the remainder of the body. Nuchal cord times one was reduced around the with delivery. Nose and mouth were bulb suctioned immediately after delivery. was placed on mother's abdomen and cord was clamped and cut. was then taken immediately to the nursery. Placenta delivered shortly thereafter, intact, with a three-vessel cord. Uterus did contract well after oxytocin was given and uterine massage was carried out. Inspection of the perineum revealed some mild abrasions but no active bleeding. Estimated blood loss is approximately 100 mL's. Mother is in stable condition and baby is being evaluated in the nursery. A viable male infant was noted with scores of 8 at 1 minute and 8 at 5 minutes and weight of 3 lbs. 4 oz. or 1480 g. Baby will be transferred due to prematurity.
[2017-06-09] MEDS ORDERED: IBUPROFEN 600 MG TAB PO PRN (05:12)
[2017-06-09] MEDS ORDERED: diphenhydrAMINE 25 MG CAP PO PRN (05:12)
[2017-06-09] MEDS ORDERED: MEASLES-MUMPS-RUBELLA VACC/PF 12,500 UNIT/0.5 ML VIAL SQ ONE (05:12)
[2017-06-09] MEDS ORDERED: WITCH HAZEL 1 EACH MED..PAD TOPICAL PRN (05:12)
[2017-06-09] MEDS ORDERED: LANOLIN CREAM 5 GM TUBE TOPICAL PRN (05:12)
[2017-06-09] MEDS ORDERED: ZOLPIDEM 5 MG TAB PO PRN (05:12)
[2017-06-09] MEDS ORDERED: Acetaminophen-Codeine 300-30mg TAB PO PRN ×2 (05:12)
[2017-06-09] MEDS ORDERED: diphenhydrAMINE 50 MG/ML 1 ML VIAL IVP PRN ×2 (05:12)
[2017-06-09] MEDS ORDERED: SIMETHICONE 80 MG CHEWABLE PO PRN (05:12)
[2017-06-09] MEDS ORDERED: diphenhydrAMINE 50 MG CAP PO PRN (05:12)
[2017-06-09] MEDS ORDERED: BENZOCAINE/MENTHOL SPRAY 1 GM/SPRAY AEROSOL TOPICAL PRN (05:12)
[2017-06-09] MEDS ORDERED: HYDROCORTISONE 2.5% RECTAL CREAM 30 GM TUBE RECTAL PRN (05:12)
[2017-06-09] MEDS ORDERED: ACETAMINOPHEN TAB 325 MG TAB PO PRN (05:12)
--- NOTE | 2017-06-09 05:13 | P.DS ---
Providers Date of admission: 06/09/17 03:56 Expected date of discharge: 06/09/17 Attending physician: Marlen Krishnan Primary care physician: Marlen Krishnan - Discharge Diagnosis(es) (1) 32 weeks gestation of Current Visit: Yes Status: Acute (2) labor in second trimester with delivery in third trimester Current Visit: Yes Status: Acute Hospital Course: This is a 26-year-old female 1 para 0 at 32-2/7 weeks who presented in labor and delivered a viable male vaginally. The infant is being transferred to another facility due to prematurity. She therefore wants to go with her baby. Her bleeding has been minimal since the delivery. She has been up without difficulty. She is having no significant pain. Lochia is decreasing. Vital signs are stable. Abdomen is soft with fundus firm and nontender. Extremities show negative Homans. Impression is status post vaginal delivery of a viable day #0. Plan is to discharge home today so she can go with her baby. She will follow up with Dr. Krishnan in 6 weeks for her check. She will be given a prescription for ibuprofen. She is advised to call the office if she has any further questions or concerns prior to her appointment time. Procedures: Spontaneous vaginal delivery of a viable male on 06/09/2017 Patient Condition at Discharge: Stable Plan - Discharge Summary New Discharge Prescriptions: New Ibuprofen [Motrin] 600 mg PO Q6HR PRN #60 tab PRN Reason: Mild Pain Or Fever >= 100.5 Continue Gtq-Fvja-Gzcjn Acid [-U Capsule (formulary)] 1 cap PO DAILY Discharge Medication List Szw-Bgls-Utmuh Acid [-U Capsule (formulary)] 1 cap PO DAILY 09/19 [History] Ibuprofen [Motrin] 600 mg PO Q6HR PRN #60 tab 06/09/17 [Rx] Follow up Appointment(s)/Referral(s): Marlen Krishnan DO [Primary Care Provider] - 6 Weeks Activity/Diet/Wound Care/Special Instructions: Instructions 1. Do not begin any exercise program for 3 weeks. 2. Do not resume sexual relations for 3 weeks or longer if uncomfortable. 3. You may take tub baths or showers at any time. 4. You may use tampons if desired after 3 weeks. 5. Keep the area of episiotomy (stitches) clean and dry. 6. If you are not nursing, wear a good fitting, supportive bra during the day and limit fluid intake for at least 1 week to prevent breast engorgement. 7. Call the office, [phone], within the next week to make appointment for your 6 week checkup if it has not already been made. 8. Report any of the following occurrences to the doctor promptly: a. Heavy, excessive bleeding b. Chills, fever c. Burning or frequency of urination d. Pain or redness and breasts if nursing e. Increasing pain or swelling in episiotomy (stitches). In addition to the above instructions, the following additional should be followed: 1. No heavy lifting or straining (exercising) until after 6 week checkup. 2. Keep abdominal incision clean and dry: You may wear a dressing if more comfortable. 3. Make office appointment for 10 days after going home or as instructed by her doctor. Discharge Disposition: HOME SELF-CARE
[2017-06-09] MEDS ORDERED: OXYTOCIN 20 UNITS/1000 ML NS 1,000 ML IV SCH (05:15)
[2017-06-09 06:57] VITALS: RESP 16
[2017-06-09] MEDS ORDERED: SENNOSIDES-DOCUSATE SODIUM 1 EACH TAB PO SCH (08:00)
[2017-06-09] MEDS ORDERED: AMPICILLIN 1,000 MG in SODIUM CHLORIDE 0.9% 50 ML IVPB SCH (08:00)
[2017-06-09] MEDS ORDERED: PRENATAL VIT-IRON-FOLIC ACID 1 EACH CAP PO SCH (09:00)
[2017-06-09 10:20] VITALS: BP 128/75; PULSE 72; TEMP 98.1
== END 2017-06-09 11:50 | disposition home or self-care (01) | DRG 775 ==
LOC: FBPOP 03:38 → 4FBP 03:56
PROVIDERS: ADMIT Obstetrics & Gynecology; ATTEND Obstetrics & Gynecology
PROC: 10E0XZZ Delivery of Products of Conception, External Approach (ICD-10-PCS; principal; 2017-06-09)
PROC: 3E0134Z Introduction of Serum, Toxoid and Vaccine into Subcutaneous Tissue, Percutaneous Approach (ICD-10-PCS; 2017-06-09)
DX: O60.14X0 Preterm labor third trimester with preterm delivery third trimester, not applicable or unspecified (principal); O26.873 Cervical shortening, third trimester; Z37.0 Single live birth; Z3A.32 32 weeks gestation of pregnancy; Z23 Encounter for immunization; O69.81X0 Labor and delivery complicated by cord around neck, without compression, not applicable or unspecified; O99.334 Smoking (tobacco) complicating childbirth; F17.200 Nicotine dependence, unspecified, uncomplicated; E80.4 Gilbert syndrome; I73.00 Raynaud's syndrome without gangrene; Z79.899 Other long term (current) drug therapy; Z90.49 Acquired absence of other specified parts of digestive tract; Z88.8 Allergy status to other drugs, medicaments and biological substances
CPT/HCPCS: 85025; 85384; 85610; 85730; 86850; 86900; 86901; 88307; 90707; 99213

== ENCOUNTER 2017-07-14 14:10 | Inpatient (IN) | payer MEDICAID, OTHER ==
[2017-07-14] MEDS ORDERED: SODIUM CHLORIDE 0.9% 500 ML IV STA (15:11)
--- NOTE | 2017-07-14 15:19 | ED ---
General Adult HPI - General Chief complaint: Psychiatric Symptoms Stated complaint: Petition Time Seen by Provider: 07/14/17 14:30 Source: patient, police, RN notes reviewed, Caregiver Mode of arrival: ambulatory Limitations: no limitations - History of Present Illness Initial comments: Chief complaint history of present illness a 18-year-old female brought emergency room by police because of her activity and behavior at her community mental health facility. A petition was completed by the mental health professional stating that she is highly agitated, paranoid, delusional thinking , pacing with racing thoughts which are circumstantial and not go directed. Reportedly hypochondria and suffering from insomnia. He also reports that she' s been verbally combative has not been able to sleep for 3 or 4 days. - Related Data Home Medications Medication Instructions Recorded Confirmed [id number] Acid 1 cap PO DAILY 02/11/17 07/14/17 [-U Capsule (formulary)] Previous Rx's Medication Instructions Recorded ARIPiprazole IM [Abilify Maintena] 400 mg IM Q28D #1 07/17/17 ARIPiprazole [Abilify] 15 mg PO DAILY #8 07/17/17 Melatonin 3 mg PO HS #28 tab 07/17/17 hydrOXYzine PAMOATE [Vistaril] 25 mg PO Q8HR PRN #28 cap 07/17/17 Allergies Allergy/AdvReac Type Severity Reaction Status Date / Time bupropion HCl Allergy Rash/Hives Verified 07/14/17 21:13 [From Wellbutrin] citalopram hydrobromide AdvReac manic Verified 07/14/17 21:13 [From Celexa] duloxetine HCl AdvReac manic Verified 07/14/17 21:13 [From Cymbalta] escitalopram oxalate AdvReac manic Verified 07/14/17 21:13 [From Lexapro] Review of Systems ROS Statement: Those systems with pertinent positive or pertinent negative responses have been documented in the HPI. Review of systems no complaint of visual acuity is have a dry raspy throat. No chest pain shortness of breath no GI/ problems. Patient reports she delivered a baby 1 month ago and was fine up until several days ago she started having heavy menstrual cycle. Patient's denying being suicidal but admits that she could be manic because of the way she feels . At that she's having difficulty sleeping. Denying problems with dizziness. Decreased appetite lately. No neuro deficits. All systems are reviewed. Past medical problems bipolar disorder. Denies any other medical problems. He smokes daily including marijuana. Past medical problems also include Gilbert's syndrome. Surgeries cholecystectomy, and left ring finger surgery. Family history noncontributory ROS Other: All systems not noted in ROS Statement are negative. Past Medical History Past Medical History: No Reported History Additional Past Medical History / Comment(s): Gilbert's syndrome, Raynaud History of Any Multi-Drug Resistant Organisms: None Reported Past Surgical History: Cholecystectomy, Orthopedic Surgery Additional Past Surgical History / Comment(s): Left ring finger surgery Past Anesthesia/Blood Transfusion Reactions: No Reported Reaction Past Psychological History: Bipolar Smoking Status: Current every day smoker Past Alcohol Use History: None Reported Past Drug Use History: Marijuana - Past Family History Father Family Medical History: COPD, Coronary Artery Disease (CAD) Additional Family Medical History / Comment(s): Father is alive at 67 years of age with history of CAD and COPD Mother Family Medical History: Diabetes Mellitus, Hypertension Additional Family Medical History / Comment(s): Mother is alive with history of DM and HTN. Brother(s) Additional Family Medical History / Comment(s): Patient has 5 siblings with no major medical problems. General Exam - General Exam Comments Initial Comments: General: The patient is awake and alert, is admittedly anxious, manic behaving. Admits that she is manic. States she has bipolar disorder. Petition by her healthcare professional because of behavior issues. Vital signs temperature 99.2 pulse 1:30 respiratory rate 20 pulse ox 99% room air blood pressure 162/88. Eye: Pupils are equal, round and reactive to light, extra-ocular movements are intact ; there is normal conjunctiva bilaterally. No signs of icterus. Ears, nose, mouth and throat: There are moist mucous membranes and no oral lesions. Patient complains of a sore throat but no significant findings are appreciated. She does have a darkened tongue due to hairy tongue. Neck: The neck is supple, there is no tenderness or thyroid not enlarged, no anterior cervical lymphadenopathy. Cardiovascular: Tachycardic heart rate, 1:30.. No murmur, rub or gallop is appreciated. Respiratory: Lungs are clear to auscultation, respirations are non-labored, breath sounds are equal. No wheezes, stridor, rales, or rhonchi. Gastrointestinal: Soft, non-distended, non-tender abdomen without masses or organomegaly noted. There is no rebound or guarding present. No CVA tenderness. Bowel sounds are unremarkable. Patient states her menstrual cycle was started 5 or 6 days ago is particularly heavy. She delivered a baby 1 month ago. Vaginal delivery. No problems for the last prior 3 weeks. Back: There is no tenderness to palpation in the midline. There is no obvious deformity. No rashes noted. Musculoskeletal: Normal ROM, no redness on both wrists with the patient had handcuffs placed. There is no pedal edema. There is no calf tenderness or swelling. Sensation intact. Pulses equal bilaterally 2+. Neurological: CN II-XII intact, There are no obvious motor or sensory deficits. Coordination appears grossly intact. Speech is normal. Skin: Skin is warm and dry and no rashes or lesions are noted. Psychiatric: Manic behaving, denies suicidal thoughts. States she's having difficulty sleeping for the last several days. History of bipolar disorder, takes medications for same. Repetitious speech. Limitations: no limitations Course Vital Signs 07/14/17 07/14/17 07/14/17 14:24 16:34 18:43 Temperature 99.2 F 97.2 F L Pulse Rate 130 H 118 H 91 Respiratory 20 18 18 Rate Blood Pressure 162/88 154/60 149/99 O2 Sat by Pulse 99 95 91 L Oximetry Medical Decision Making - Medical Decision Making I have completed a search for admission. The patient will receive 2 mg Ativan by mouth. Patient was evaluated by psych nurse. Patient be admitted to [facility] for further evaluation. Labs reviewed potassium 3.4 patient received 20 mEq of K door. The patient's drug triage positive for marijuana. White count mildly elevated without specific source other than stress. - Lab Data Result diagrams: 07/15/17 08:41 07/15/17 08:41 Lab Results 07/14/17 07/14/17 07/14/17 Range/Units 14:00 14:00 15:20 WBC 14.5 H (3.8-10.6) k/uL RBC 4.67 (3.80-5.40) m/uL Hgb 14.1 (11.4-16.0) gm/dL Hct 41.2 (34.0-46.0) % MCV 88.3 (80.0-100.0) fL MCH 30.2 (25.0-35.0) pg MCHC 34.1 (31.0-37.0) g/dL RDW 12.5 (11.5-15.5) % Plt Count 219 (150-450) k/uL Neutrophils % 78 % Lymphocytes % 16 % Monocytes % 5 % Eosinophils % 0 % Basophils % 0 % Neutrophils # 11.3 H (1.3-7.7) k/uL Lymphocytes # 2.3 (1.0-4.8) k/uL Monocytes # 0.7 (0-1.0) k/uL Eosinophils # 0.0 (0-0.7) k/uL Basophils # 0.0 (0-0.2) k/uL Sodium (137-145) mmol/L Potassium (3.5-5.1) mmol/L Chloride (98-107) mmol/L Carbon Dioxide (22-30) mmol/L Anion Gap mmol/L BUN (7-17) mg/dL Creatinine (0.52-1.04) mg/dL Est GFR (MDRD) Af Amer (>60 ml/min/1.73 sqM) Est GFR (MDRD) Non-Af (>60 ml/min/1.73 sqM) Glucose (74-99) mg/dL Calcium (8.4-10.2) mg/dL Total Bilirubin (0.2-1.3) mg/dL AST (14-36) U/L ALT (9-52) U/L Alkaline Phosphatase (38-126) U/L Total Protein (6.3-8.2) g/dL Albumin (3.5-5.0) g/dL TSH (0.465-4.680) mIU/L Urine HCG, Qual Not Detected (Not Detectd) Salicylates mg/dL Urine Opiates Screen Not Detected (NotDetected) Ur Oxycodone Screen Not Detected (NotDetected) Urine Methadone Screen Not Detected (NotDetected) Ur Propoxyphene Screen Not Detected (NotDetected) Acetaminophen ug/mL Ur Barbiturates Screen Not Detected (NotDetected) U Tricyclic Antidepress Not Detected (NotDetected) Ur Phencyclidine Scrn Not Detected (NotDetected) Ur Amphetamines Screen Not Detected (NotDetected) U Methamphetamines Scrn Not Detected (NotDetected) U Benzodiazepines Scrn Not Detected (NotDetected) Urine Cocaine Screen Not Detected (NotDetected) U Marijuana (THC) Screen Detected H (NotDetected) 07/14/17 Range/Units 15:20 WBC (3.8-10.6) k/uL RBC (3.80-5.40) m/uL Hgb (11.4-16.0) gm/dL Hct (34.0-46.0) % MCV (80.0-100.0) fL MCH (25.0-35.0) pg MCHC (31.0-37.0) g/dL RDW (11.5-15.5) % Plt Count (150-450) k/uL Neutrophils % % Lymphocytes % % Monocytes % % Eosinophils % % Basophils % % Neutrophils # (1.3-7.7) k/uL Lymphocytes # (1.0-4.8) k/uL Monocytes # (0-1.0) k/uL Eosinophils # (0-0.7) k/uL Basophils # (0-0.2) k/uL Sodium 139 (137-145) mmol/L Potassium 3.4 L (3.5-5.1) mmol/L Chloride 107 (98-107) mmol/L Carbon Dioxide 22 (22-30) mmol/L Anion Gap 10 mmol/L BUN 8 (7-17) mg/dL Creatinine 0.60 (0.52-1.04) mg/dL Est GFR (MDRD) Af Amer >60 (>60 ml/min/1.73 sqM) Est GFR (MDRD) Non-Af >60 (>60 ml/min/1.73 sqM) Glucose 109 H (74-99) mg/dL Calcium 9.4 (8.4-10.2) mg/dL Total Bilirubin 1.2 (0.2-1.3) mg/dL AST 33 (14-36) U/L ALT 35 (9-52) U/L Alkaline Phosphatase 134 H (38-126) U/L Total Protein 7.0 (6.3-8.2) g/dL Albumin 4.2 (3.5-5.0) g/dL TSH 0.974 (0.465-4.680) mIU/L Urine HCG, Qual (Not Detectd) Salicylates <1.0 mg/dL Urine Opiates Screen (NotDetected) Ur Oxycodone Screen (NotDetected) Urine Methadone Screen (NotDetected) Ur Propoxyphene Screen (NotDetected) Acetaminophen <10.0 ug/mL Ur Barbiturates Screen (NotDetected) U Tricyclic Antidepress (NotDetected) Ur Phencyclidine Scrn (NotDetected) Ur Amphetamines Screen (NotDetected) U Methamphetamines Scrn (NotDetected) U Benzodiazepines Scrn (NotDetected) Urine Cocaine Screen (NotDetected) U Marijuana (THC) Screen (NotDetected) Disposition Clinical Impression: Elenita (monopolar) single episode or unspecified Disposition: TRANSFER TO PSYCH HOSP/UNIT Condition: Stable
[2017-07-14 15:43] LABS: Basophils % (A) 0 %; CHCM 35.2; Eosinophils % (A) 0 %; HCT 41.2 % (34.0-46.0); HGB 14.1 gm/dL (11.4-16.0); Luc # (Auto) 0.13; Luc % (Auto) 1; Lymphocytes # (A) 2.3 k/uL (1.0-4.8); Lymphocytes % (A) 16 %; MCH 30.2 pg (25.0-35.0); MCHC 34.1 g/dL (31.0-37.0); MCV 88.3 fL (80.0-100.0); Mean Platelet Volume 8.1; Monocytes # (A) 0.7 k/uL (0-1.0); Monocytes % (A) 5 %; Neutrophils # (A) 11.3 k/uL (1.3-7.7); Neutrophils % (A) 78 %; RBC 4.67 m/uL (3.80-5.40); RDW 12.5 % (11.5-15.5); WBC 14.5 k/uL (3.8-10.6); WBC (Perox) 14.09
[2017-07-14 15:54] LABS: ALT 35 U/L (9-52); AST 33 U/L (14-36); Acetaminophen <10.0 ug/mL; Alkaline Phosphatase 134 U/L (38-126); Anion Gap 10 mmol/L; Blood Urea Nitrogen 8 mg/dL (7-17); Calcium 9.4 mg/dL (8.4-10.2); Carbon Dioxide 22 mmol/L (22-30); Chloride 107 mmol/L (98-107); Glucose 109 mg/dL (74-99); Non-African American GFR(MDRD) >60 (>60 ml/min/1.73 sqM); Potassium 3.4 mmol/L (3.5-5.1); Salicylate <1.0 mg/dL; Sodium 139 mmol/L (137-145); Total Bilirubin 1.2 mg/dL (0.2-1.3)
[2017-07-14] MEDS ORDERED: LORazepam 1 MG TAB PO STA (18:12)
[2017-07-14] MEDS ORDERED: POTASSIUM CHLORIDE ER 20 MEQ TAB.ER PO STA (18:14)
[2017-07-14] MEDS ORDERED: ZIPRASIDONE 20 MG VIAL IM PRN (20:30)
[2017-07-14] MEDS ORDERED: MAGNESIUM HYDROXIDE 2,400 MG/10 ML CUP PO PRN (20:30)
[2017-07-14] MEDS ORDERED: MAG HYDROX/AL HYDROX/SIMETH 30 ML CUP PO PRN (20:30)
[2017-07-14] MEDS ORDERED: LORazepam 2 MG/ML SYRINGE IM PRN (20:36)
[2017-07-15] MEDS ORDERED: WATER FOR INJECTION, STERILE 10 ML IV ONE (00:28)
[2017-07-15] MEDS ORDERED: ZIPRASIDONE 20 MG VIAL IM ONE (00:28)
[2017-07-15] MEDS: ACETAMINOPHEN TAB 325 MG TAB PO PRN (00:49)
--- NOTE | 2017-07-15 06:17 | P.PN ---
Progress Note - Text Attempted to see and evaluate the patient @ 2100 however patient was combative, agitated and refusing to see Male doctors. patient was rechecked @0606 , I attempted to wake the patient up to be able to interview , but she was heavily sedated still under the effect of Geodon and Benzo, and was unable to have a meaningful conversation without her keep drifting into sleep. I will defer to the morning team to evaluate the patient when more awake and cooperative, RN at bedside notified and aware. Please do not hesitate to contact us with questions. Someone can be reached from the [facility] hospitalist group at all hours of the day at .
[2017-07-15 09:15] LABS: Basophils % (A) 1 %; CH 30.8; CHCM 34.6; Eosinophils % (A) 1 %; HCT 38.7 % (34.0-46.0); HDW 2.56; HGB 13.1 gm/dL (11.4-16.0); Luc # (Auto) 0.14; Luc % (Auto) 2; Lymphocytes # (A) 2.6 k/uL (1.0-4.8); Lymphocytes % (A) 37 %; MCH 30.4 pg (25.0-35.0); MCV 89.5 fL (80.0-100.0); Mean Platelet Volume 8.4; Monocytes # (A) 0.4 k/uL (0-1.0); Monocytes % (A) 6 %; Neutrophils # (A) 3.9 k/uL (1.3-7.7); Neutrophils % (A) 54 %; RBC 4.32 m/uL (3.80-5.40); RDW 12.7 % (11.5-15.5); WBC 7.2 k/uL (3.8-10.6); WBC (Perox) 7.78
[2017-07-15 09:36] LABS: ALT 31 U/L (9-52); AST 30 U/L (14-36); Alkaline Phosphatase 120 U/L (38-126); Anion Gap 9 mmol/L; Blood Urea Nitrogen 6 mg/dL (7-17); Calcium 9.1 mg/dL (8.4-10.2); Carbon Dioxide 22 mmol/L (22-30); Chloride 110 mmol/L (98-107); Glucose 85 mg/dL (74-99); Non-African American GFR(MDRD) >60 (>60 ml/min/1.73 sqM); Potassium 3.8 mmol/L (3.5-5.1); Sodium 141 mmol/L (137-145); Total Bilirubin 1.8 mg/dL (0.2-1.3); Total Protein 6.5 g/dL (6.3-8.2)
[2017-07-15] MEDS: LORazepam 1 MG TAB PO PRN ×2 (09:55→17:17)
[2017-07-15] MEDS: ARIPiprazole 15 MG TAB PO SCH (10:13)
[2017-07-15] MEDS: NICOTINE 21MG/24HR PATCH TRANSDERM SCH (10:13)
[2017-07-15] MEDS: PRENATAL VIT-IRON-FOLIC ACID 1 EACH CAP PO SCH (11:46)
--- NOTE | 2017-07-15 12:12 | P.HP ---
Psychiatric H&P - . H&P Date: 07/15/17 History & Physical: Allergies Allergy/AdvReac Type Severity Reaction Status Date / Time bupropion HCl Allergy Rash/Hives Verified 07/14/17 21:13 [From Wellbutrin] citalopram hydrobromide AdvReac manic Verified 07/14/17 21:13 [From Celexa] duloxetine HCl AdvReac manic Verified 07/14/17 21:13 [From Cymbalta] escitalopram oxalate AdvReac manic Verified 07/14/17 21:13 [From Lexapro] Vital Signs Temp 97.8 F 07/15/17 06:27 Pulse 96 07/15/17 06:27 Resp 15 07/15/17 06:27 BP 116/70 07/15/17 06:27 Pulse Ox 91 L 07/14/17 18:43 Intake & Output 07/14/17 07/15/17 07/15/17 18:59 06:59 18:59 Weight 68.039 kg 69.414 kg Laboratory Last Values WBC 7.2 k/uL (3.8-10.6) 07/15/17 08:41 RBC 4.32 m/uL (3.80-5.40) 07/15/17 08:41 Hgb 13.1 gm/dL (11.4-16.0) 07/15/17 08:41 Hct 38.7 % (34.0-46.0) 07/15/17 08:41 MCV 89.5 fL (80.0-100.0) 07/15/17 08:41 MCH 30.4 pg (25.0-35.0) 07/15/17 08:41 MCHC 34.0 g/dL (31.0-37.0) 07/15/17 08:41 RDW 12.7 % (11.5-15.5) 07/15/17 08:41 Plt Count 192 k/uL (150-450) 07/15/17 08:41 Neutrophils % 54 % 07/15/17 08:41 Lymphocytes % 37 % 07/15/17 08:41 Monocytes % 6 % 07/15/17 08:41 Eosinophils % 1 % 07/15/17 08:41 Basophils % 1 % 07/15/17 08:41 Neutrophils # 3.9 k/uL (1.3-7.7) 07/15/17 08:41 Lymphocytes # 2.6 k/uL (1.0-4.8) 07/15/17 08:41 Monocytes # 0.4 k/uL (0-1.0) 07/15/17 08:41 Eosinophils # 0.0 k/uL (0-0.7) 07/15/17 08:41 Basophils # 0.0 k/uL (0-0.2) 07/15/17 08:41 Sodium 141 mmol/L (137-145) 07/15/17 08:41 Potassium 3.8 mmol/L (3.5-5.1) 07/15/17 08:41 Chloride 110 mmol/L (98-107) H 07/15/17 08:41 Carbon Dioxide 22 mmol/L (22-30) 07/15/17 08:41 Anion Gap 9 mmol/L 07/15/17 08:41 BUN 6 mg/dL (7-17) L 07/15/17 08:41 Creatinine 0.68 mg/dL (0.52-1.04) 07/15/17 08:41 Est GFR (MDRD) Af Amer >60 (>60 ml/min/1.73 sqM) 07/15/17 08:41 Est GFR (MDRD) Non-Af >60 (>60 ml/min/1.73 sqM) 07/15/17 08:41 Glucose 85 mg/dL (74-99) 07/15/17 08:41 Calcium 9.1 mg/dL (8.4-10.2) 07/15/17 08:41 Total Bilirubin 1.8 mg/dL (0.2-1.3) H 07/15/17 08:41 AST 30 U/L (14-36) 07/15/17 08:41 ALT 31 U/L (9-52) 07/15/17 08:41 Alkaline Phosphatase 120 U/L (38-126) 07/15/17 08:41 Total Protein 6.5 g/dL (6.3-8.2) 07/15/17 08:41 Albumin 3.9 g/dL (3.5-5.0) 07/15/17 08:41 TSH 1.830 mIU/L (0.465-4.680) 07/15/17 08:41 Urine HCG, Qual Not Detected (Not Detectd) 07/14/17 14:00 Salicylates <1.0 mg/dL 07/14/17 15:20 Urine Opiates Screen Not Detected (NotDetected) 07/14/17 14:00 Ur Oxycodone Screen Not Detected (NotDetected) 07/14/17 14:00 Urine Methadone Screen Not Detected (NotDetected) 07/14/17 14:00 Ur Propoxyphene Screen Not Detected (NotDetected) 07/14/17 14:00 Acetaminophen <10.0 ug/mL 07/14/17 15:20 Ur Barbiturates Screen Not Detected (NotDetected) 07/14/17 14:00 U Tricyclic Antidepress Not Detected (NotDetected) 07/14/17 14:00 Ur Phencyclidine Scrn Not Detected (NotDetected) 07/14/17 14:00 Ur Amphetamines Screen Not Detected (NotDetected) 07/14/17 14:00 U Methamphetamines Scrn Not Detected (NotDetected) 07/14/17 14:00 U Benzodiazepines Scrn Not Detected (NotDetected) 07/14/17 14:00 Urine Cocaine Screen Not Detected (NotDetected) 07/14/17 14:00 U Marijuana (THC) Screen Detected (NotDetected) H 07/14/17 14:00 07/15/17 11:40 Identification: Patient is a 26-year-old female who was petitioned by [facility] and was brought to the hospital for admission. Patient was agitated, paranoid, loud in the emergency room on admission. History of Present Illness: Patient states that she delivered a baby on June 09 , she did not tell me but in reading the record that baby was due on August 02 was delivered on June 09 and was premature. Patient states that her asked her to go to [facility] because she was in a crisis. She states she has been treated at [facility] in [facility] since the age of 11 for bipolar disorder. She states she was on no medication during her . She reports that she received an injection of Abilify on July 10 and is unable to tell me if she was taking oral meds or not, she states they were discontinued when she received the injection. Patient denies that she has any mood symptoms denies that she's been agitated states that is all due to her 's mother not liking her and wanting her to divorce her . She reports that she's been up every 3 hours with the infant and has been receiving maybe 3-5 hours of sleep, she denies racing thoughts and states that her has assisted her in caring for the baby. Patient complains that she is unable to give me a good history because she is still tired and sleepy from the injection she received yesterday evening. Patient received Geodon and Abilify in the emergency room prior to her admission. Patient states that she doesn't understand why she is in the hospital and states that she fears she will be here until her son is grown up and she will miss his childhood. Patient denied having auditory hallucinations denied suicidal thoughts denied homicidal ideation denied feeling paranoid and could not tell me why she was here in the hospital. Patient states she's been treated since the age of 11 for bipolar disorder and states she's been on multiple medications but could not report to me what she had been taking prior to her becoming or prior to the time she found out that she was . She stated her last admission was 3 years ago however her last admission was in December 2015. Patient is a poor historian and there is limited information regarding how she was functioning at home prior to her admission. Past Psychiatric History: Patient reports 13 prior admissions, her last was here in December 2015 and she states she thinks she's been on lithium, Depakote , Tegretol, Lamictal states the Aloqa did not work for her. She states she was not treated during her and knows that she was on Abilify prior to getting but is uncertain if she was on an additional medication at that time or not. Patient did receive Abilify Maintena 400 mg IM on July [address] [facility] in [facility]. Patient states she is unable to take antidepressants because they make her worse. Past Medical/Surgical History: patient states she has a torn rotator cuff on the right shoulder unrepaired, she said she had LEEP porcedure for abnormal PAP smear. Home Medications Medication Instructions Recorded Confirmed [id number] Acid 1 cap PO DAILY 02/11/17 07/14/17 [-U Capsule (formulary)] ARIPiprazole IM [Abilify Maintena] 400 mg IM Q28D 07/14/17 07/14/17 ARIPiprazole [Abilify] 15 mg PO DAILY 07/14/17 07/14/17 Family History: Patient states it's all in my history. Social History: Patient states she was born and raised in [place] and her parents are alive and are . She states she has 2 siblings and 2 half sibs who were adopted. 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 Patient states she has never worked and is on Social Security disability due to her psychiatric diagnosis. She was in March 2017 that she has a healthy one month old son however to be noted in the chart that the patient delivered on June 09 and was due on August 02. She did not inform me that the baby was premature. She states she is living with her and her father and states that her is not working and has been assisting with the care of the baby and is now caring for their son. Substance Use History: Patient states she uses alcohol occasionally and states that marijuana since the age of 11 on a daily basis but states she has not used for the last 38 days. She used cocaine for a while in the past states that she has not abused any other drugs. She reports positive tobacco use. Legal History: Patient states she was charged with something that can't recall what it was. Mental Status:Appearance/Attitude: Patient was sleeping in her room, stated that she was tired from the injection yesterday, she made intermittent eye contact and was superficially cooperative. Patient was wrapped in a blanket Behavior: Patient did not display any psychomotor agitation or retardation. Speech/Language: Patient's speech was spontaneous and of normal volume and rhythm, she was coherent Thought Process: Patient's responses were goal-directed but brief and stated she did not want to give a more complete history because she could not think straight due to the injection last evening. Thought Content: Patient denied any auditory or visual hallucinations and no delusions or paranoid ideation were elicited. Patient denied that she been feeling agitated or irritable at home states she had been taking her medication and received her injection on July 10 she reports that she was told to not continue taking any oral Abilify. Patient states she has been sleeping about 3 hours at a time as her is up every 3 hours. She reports that she was eating well. She denied racing thoughts. Suicidal/Homicidal Ideation: Patient denies any current suicidal or homicidal ideation. Sensorium/Cognition: Patient is alert and oriented to person, place, and time and her memory is grossly intact. Mood/Affect: Patient's mood is irritable and her affect is blunted. Insight/Judgement: Patient's insight and judgment are fair. Intellectual Functioning: Patient's intellectual functioning appears average. Strength/Weaknesses: Patient was unable to identify strengths Assessment: Patient presents after being restarted on medication following the delivery of her son on June 09. Patient received an injection of Abilify Maintena on July 10 and states that she was told to not continue oral Abilify. She is unable to tell me what she was on prior to her . She knows it was Abilify but does not recall if it was combined with another medication or not. Patient was irritable, loud agitated last evening and received an injection of Geodon and Ativan which she states is making her feel sleepy this morning and so she is unable to give me an accurate history because she cannot think straight. Patient did not inform me that her son was born premature. Admission Diagnoses: Bipolar type I disorder current episode manic Plan: Patient was agreeable to sign in on a voluntary basis, routine laboratory studies were ordered as well as a medical consultation, as well as group and activity therapy. Patient and I discussed her medication and need to take oral medication after the injection for total of 2 weeks. She was restarted on Abilify 15 mg orally which she was agreeable to take. Patient is unable to tell me if she was on additional medication and we will contact her community mental health in [facility] to obtain this information. Patient was encouraged to attend groups and activities. Patient requires hospitalization to stabilize her mood. 07/15/17 11:43 07/15/17 12:02
--- NOTE | 2017-07-15 18:47 | CONS ---
CONSULTATION CHIEF COMPLAINT: Bizarre behavior. HISTORY OF PRESENT ILLNESS: The patient is a 26-year-old female with a past medical history of Gilbert syndrome, bipolar disorder since age 11 and Raynaud disease who was sent over by [facility] for bizarre behaviors. The patient was seen in the emergency department and has been admitted to the mental health unit. We were asked to evaluate her regarding her Gilbert syndrome. Of note, she recently delivered a pre-term male baby in June. He was 32 weeks at time of delivery and spent a significant amount of time in the special care nursery at [facility]. He just returned home approximately 2 weeks ago. She states that she has not had any trouble caring for him. She did try breast-feeding but was unsuccessful, as he could not latch, and he has been bottle-fed. She has no plans on returning to breast-feeding and therefore would not have any restrictions on medication. She does complain of heavy bleeding that started approximately 7 days ago. She states that her periods are typically not this long. She denies any unusual abdominal pain, malodor or unusual color. She does see Dr. Krishnan and was scheduled to have an appointment with her this upcoming week. She is very concerned that she may have cervical cancer. According to the patient, her asked her to go to [facility] because he was concerned that she was in crisis. She denies any thoughts of suicide, depression, delusional behaviors or aggression. She has not had any other recent medical problems. She denies any recent sick contacts. She has not had any fevers, chills, nausea, vomiting, diarrhea or constipation. PAST MEDICAL HISTORY: 1. Bipolar disorder. 2. Gilbert syndrome. 3. Raynaud disease. PAST SURGICAL HISTORY: 1. Rotator cuff surgery. 2. Left ring finger surgery. 3. Cholecystectomy. PAST SOCIAL HISTORY: Currently smokes approximately 1 pack per day. She denies any alcohol use and has not used marijuana in over 40 days. She reports that she lives with her father and her . PAST FAMILY HISTORY: Father with COPD and coronary artery disease. He is alive and well. ALLERGIES: 1. WELLBUTRIN. 2. CELEXA. 3. CYMBALTA. 4. LEXAPRO. CURRENT MEDICATIONS: Current medications are reviewed and are as per EMR. LABORATORY ANALYSIS: White blood cell count 7.2, hemoglobin 13.1, hematocrit 38.7, platelets 192. Sodium 141, potassium 3.8, chloride 110 bicarb 22. BUN 6, creatinine 0.68. Total bilirubin 1.8. AST and ALT are within normal limits. Urine drug screen was positive for THC. REVIEW OF SYSTEMS: Twelve-point review of systems was completed and is negative or as listed above are pertinent positive. PHYSICAL EXAM: VITAL SIGNS: Temperature 97.2, pulse 18, respirations 18, blood pressure 154/60, oxygenation 98% on room air. GENERAL: Non-toxic. No distress. Appears at stated age. HEENT: Normocephalic, atraumatic. Extraocular motion intact. Pupils equal, round, reactive to light. No scleral icterus. No lid lag. NECK: No cervical lymphadenopathy. No JVD. No carotid bruit. CARDIOVASCULAR: S1, S2 regular without significant murmurs, rubs or gallops. No clubbing. No cyanosis. No edema. Positive posterior tibial pulses bilaterally. PULMONARY: Clear to auscultation bilaterally without rhonchi, rales or wheeze. No accessory muscle use. GASTROINTESTINAL: Soft, non-distended, non-tender to palpation. No guarding or rebound. SKIN: No unusual rashes or lesions. NEUROLOGIC: Cranial nerves 2 through 12 grossly intact as tested. No focal neural deficits. PSYCHIATRIC: Appears easily agitated. Alert and oriented x3. Somewhat sleepy and keeps yawning. EXTREMITIES: No edema. No atrophy. No contractures. ASSESSMENT AND PLAN: 1. Hyperbilirubinemia secondary to Gilbert syndrome. Recheck blood work in 2 to 3 days. No therapy indicated at this point in time, as patient is status post cholecystectomy. 2. Raynaud disease. Patient denies any complications at this time. No changes in medication warranted. 3. Tobacco abuse. Cessation recommended. Nicotine replacement. 4. Menometrorrhagia, status post spontaneous vaginal pre-term delivery. Needs to follow up with Dr. Krishnan on an outpatient basis. Recheck CBC to screen for anemia. 5. Bipolar disorder. Management as per psychiatric services. Thank you for allowing us to participate in the care of this patient. Someone can be reached from the [facility] 24 hours per day at . Please do not hesitate to contact us with any ongoing concerns about this patient. We will plan on remotely reviewing her bilirubin and CBC reordered and will see the patient again as needed. MMODL / IJN: [id number] /
[2017-07-16 06:10] VITALS: RESP 18
[2017-07-16] MEDS: ACETAMINOPHEN TAB 325 MG TAB PO PRN ×2 (06:17→13:39)
[2017-07-16] MEDS: LORazepam 1 MG TAB PO PRN (06:57)
[2017-07-16] MEDS ORDERED: hydrOXYzine PAMOATE 25 MG CAP PO PRN (08:12)
[2017-07-16] MEDS: NICOTINE 21MG/24HR PATCH TRANSDERM SCH (08:29)
[2017-07-16] MEDS: ARIPiprazole 15 MG TAB PO SCH (08:29)
--- NOTE | 2017-07-16 11:44 | P.PN ---
Progress Note - Text Interval History: Patient is a 26-year-old female who was seen today and she reports that her son was transferred to [facility] in [place] after delivery and that they spent a month they're both she and her staying in his room she states that they were not allowed to sleep during the day. Her son returned home on July 06. She states that the first 3 days went well but then starting around July 09 she became increasingly sleep deprived. Patient states that her son is also on an apnea monitor but that has not gone off frequently. She states that the first several days with her son in the home went well and then several cousins came to the house to assist her. Her mother called and told her that the police were coming to an address on her [address] so the patient was upset not understanding they were coming to her house or not, she states her cousins were up all night as well as she and she states that things became difficult for her after that. She did ask them to come to help with the baby but states after they were there it was more problematic. She states that she slept well yesterday and last evening and is feeling much more rested. Patient states that she has been taking the Abilify and notices an improvement in her mood and thinking. Patient states that she does get anxious at times when I asked her what she meant by that she states that she does get anxious when she sees physicians is in therapy and in other situations. Patient states that she has been using the Ativan on those instances and requested something to assist her with sleep. Patient states that she does have a visiting nurse that is been coming to the home and she is concerned about the CPS case that was also opened. Mental Status: Appearance/Attitude: Patient was appropriately dressed, made good eye contact and was cooperative. Behavior: Patient displayed no psychomotor agitation or retardation. Speech/Language: Patient's speech was spontaneous, normal volume and rhythm and she was coherent. Thought Process: Patient was goal-directed, there is no evidence of circumstantial or tangential thought no loose associations or flight of ideas. Thought Content: Patient denied any auditory or visual hallucinations, no delusions or paranoid ideation were elicited. Patient states that she is thinking much clearer, she slept well and feels rested. Patient states that she is eating well. She reported no complaints of racing thoughts and felt her thinking was more organized. Suicidal/Homicidal Ideation: Patient denies any current suicidal or homicidal ideation. Sensorium/Cognition: Patient is alert and oriented to person, place, and time and her memory is grossly intact. Mood/Affect: Patient's mood is stable and her affect is appropriate. Insight/Judgement: Patient's insight and judgment are fair. Assessment: Patient reports feeling much better after sleeping and she is no longer reporting racing thoughts or feeling disorganized. Patient is much more stable today and we discussed the difficulties at home after her son came back from the hospital. She states that the first several days went well but then she became increasingly sleep deprived. Patient reports that a visiting nurse come to the house and has been assisting her with learning how to care for her son. Patient reports that she is anxious at times and requested something to assist with that as well as for her sleep problems. Plan: Patient will continue on Abilify 15 mg a day until July 25 that we' ll complete 2 weeks of oral medication after her injection of Abilify Maintena patient and I discussed not using Ativan secondary to her prior substance use history and I suggested trying Vistaril 25 mg 3 times a day on an as-needed basis for anxiety discussing the use and side effects of the medicine especially sedation. Agent will begin melatonin 3 mg at bedtime to assist with her sleep. Patient and I discussed importance of her obtaining a minimum of 6 hours of uninterrupted sleep at night once she returns home, I also recommended to her that she request parenting classes from her CPS worker as well as utilized the visiting nurse to assist her with any questions she has regarding the care of her son. Patient and I discussed possible discharge Friday should her mood continued to stabilize and improve.
[2017-07-16] MEDS: PRENATAL VIT-IRON-FOLIC ACID 1 EACH CAP PO SCH (12:18)
[2017-07-16] MEDS: IBUPROFEN 200 MG TAB PO PRN ×2 (15:12→21:45)
[2017-07-16] MEDS ORDERED: MELATONIN 3 MG TABLET PO SCH (21:00)
[2017-07-17] MEDS: ACETAMINOPHEN TAB 325 MG TAB PO PRN ×2 (06:39→11:45)
[2017-07-17 06:56] VITALS: BP 118/69; PULSE 106; TEMP 98
[2017-07-17] MEDS: NICOTINE 21MG/24HR PATCH TRANSDERM SCH (08:10)
[2017-07-17] MEDS: ARIPiprazole 15 MG TAB PO SCH (08:10)
--- NOTE | 2017-07-17 11:17 | P.DS ---
Providers Date of admission: 07/14/17 19:08 Expected date of discharge: 07/17/17 Attending physician: Vibha Sturat MD Consults: 07/14/17 20:30 Consult Physician Routine Consulting Provider: Mounika Hope Consult Reason/Comments: medical mangement Do you want consulting provider notified?: Already Contacted Primary care physician: Stated None Hospital Course: Discharge Diagnoses: Bipolar type I disorder, current episode manic Reason for Admission: Patient is a 26-year-old female who was petitioned by [facility] was brought to the hospital for admission due to agitated paranoid behavior as well as not sleeping. Patient delivered her son on June 09, he was due on August 02 was transferred to [facility] in [place] due to his prematurity. He did not come home until July 06 and the patient and her were both at the hospital with her son throughout his stay. Patient states that she had begun Abilify again in mid June from [facility] and on July 10 had received Abilify Maintena but was told to discontinue her oral Abilify at that time. Patient states that several days after her son returned home she began to have difficulty sleeping, was unable to sit and rest, cousins visited and she became increasingly manic and paranoid. Patient reported that there is a visiting nurse coming to the home as well as a CPS report had been filed and she was concerned about cleanliness of her home she states she was up constantly cleaning. Patient had been off of her medication since the time of her and had been maintained on Abilify Maintena in the past with good results. Patient has a history of 13 prior admissions her last was in December 2015. Patient was also preoccupied with her needing a Pap smear immediately due to having cervical cancer. Hospital Course: Patient was admitted on a voluntary basis, routine laboratory studies were ordered as well as a medical consultation and she was ordered group and activity therapy and placed on routine precautions. Patient was restarted on Abilify 15 mg orally as she had discontinued this after her injection. [facility] was contacted to provide us information regarding the patient's prior medications. Patient improved on the unit once she was able to sleep consistently in the evening, she was no longer feeling agitated and reported no further racing thoughts. The patient expressed that she was anxious at times and we discussed options for this and she was going to try Vistaril 25 mg on an as-needed basis 3 times a day. Patient and I also discussed beginning melatonin to assist with her sleep which we did at 3 mg at bedtime. Patient reported that she been sleeping well here, was much more clearheaded was no longer having racing thoughts and there was no evidence of agitation on the unit. Patient and I also discussed her LEEP procedure which revealed dysplasia and we discussed that she did not have cervical cancer and would be followed by her fountain pen turner and she already has a scheduled visit with Dr. Krishnan. Patient and I also discussed the need for her to get a minimum of 6 uninterrupted hours of sleep when she returns home and to set up a schedule with her regarding feeding their son. Patient felt she was ready to return home. Discharge Mental Status:Appearance/Attitude: Patient was appropriately dressed, neatly groomed made good eye contact and was cooperative. Behavior: Patient did not display any psychomotor agitation or retardation. Speech/Language: Patient's speech was spontaneous and of normal volume and rhythm and she was coherent. Thought Process: Patient was goal-directed, not tangential or circumstantial there is no evidence of flight of ideas or loose associations. Thought Content: Patient denied any auditory or visual hallucinations no delusions or paranoid ideation were elicited. Patient states that she is no longer having racing thoughts and feels much more clearheaded. She reported that she was sleeping well and feeling rested in the morning and her appetite had returned to normal. Suicidal/Homicidal Ideation: Patient denied any current suicidal or homicidal ideation. Sensorium/Cognition: Patient was alert and oriented to person, place, and time and her memory is grossly intact. Mood/Affect: Patient's mood was stable and her affect was appropriate. Insight/Judgement: Patient's insight and judgment are fair. Laboratory Last Values WBC 7.2 k/uL (3.8-10.6) 07/15/17 08:41 RBC 4.32 m/uL (3.80-5.40) 07/15/17 08:41 Hgb 13.1 gm/dL (11.4-16.0) 07/15/17 08:41 Hct 38.7 % (34.0-46.0) 07/15/17 08:41 MCV 89.5 fL (80.0-100.0) 07/15/17 08:41 MCH 30.4 pg (25.0-35.0) 07/15/17 08:41 MCHC 34.0 g/dL (31.0-37.0) 07/15/17 08:41 RDW 12.7 % (11.5-15.5) 07/15/17 08:41 Plt Count 192 k/uL (150-450) 07/15/17 08:41 Neutrophils % 54 % 07/15/17 08:41 Lymphocytes % 37 % 07/15/17 08:41 Monocytes % 6 % 07/15/17 08:41 Eosinophils % 1 % 07/15/17 08:41 Basophils % 1 % 07/15/17 08:41 Neutrophils # 3.9 k/uL (1.3-7.7) 07/15/17 08:41 Lymphocytes # 2.6 k/uL (1.0-4.8) 07/15/17 08:41 Monocytes # 0.4 k/uL (0-1.0) 07/15/17 08:41 Eosinophils # 0.0 k/uL (0-0.7) 07/15/17 08:41 Basophils # 0.0 k/uL (0-0.2) 07/15/17 08:41 Sodium 141 mmol/L (137-145) 07/15/17 08:41 Potassium 3.8 mmol/L (3.5-5.1) 07/15/17 08:41 Chloride 110 mmol/L (98-107) H 07/15/17 08:41 Carbon Dioxide 22 mmol/L (22-30) 07/15/17 08:41 Anion Gap 9 mmol/L 07/15/17 08:41 BUN 6 mg/dL (7-17) L 07/15/17 08:41 Creatinine 0.68 mg/dL (0.52-1.04) 07/15/17 08:41 Est GFR (MDRD) Af Amer >60 (>60 ml/min/1.73 sqM) 07/15/17 08:41 Est GFR (MDRD) Non-Af >60 (>60 ml/min/1.73 sqM) 07/15/17 08:41 Glucose 85 mg/dL (74-99) 07/15/17 08:41 Calcium 9.1 mg/dL (8.4-10.2) 07/15/17 08:41 Total Bilirubin 1.8 mg/dL (0.2-1.3) H 07/15/17 08:41 AST 30 U/L (14-36) 07/15/17 08:41 ALT 31 U/L (9-52) 07/15/17 08:41 Alkaline Phosphatase 120 U/L (38-126) 07/15/17 08:41 Total Protein 6.5 g/dL (6.3-8.2) 07/15/17 08:41 Albumin 3.9 g/dL (3.5-5.0) 07/15/17 08:41 TSH 1.830 mIU/L (0.465-4.680) 07/15/17 08:41 Urine HCG, Qual Not Detected (Not Detectd) 07/14/17 14:00 Salicylates <1.0 mg/dL 07/14/17 15:20 Urine Opiates Screen Not Detected (NotDetected) 07/14/17 14:00 Ur Oxycodone Screen Not Detected (NotDetected) 07/14/17 14:00 Urine Methadone Screen Not Detected (NotDetected) 07/14/17 14:00 Ur Propoxyphene Screen Not Detected (NotDetected) 07/14/17 14:00 Acetaminophen <10.0 ug/mL 07/14/17 15:20 Ur Barbiturates Screen Not Detected (NotDetected) 07/14/17 14:00 U Tricyclic Antidepress Not Detected (NotDetected) 07/14/17 14:00 Ur Phencyclidine Scrn Not Detected (NotDetected) 07/14/17 14:00 Ur Amphetamines Screen Not Detected (NotDetected) 07/14/17 14:00 U Methamphetamines Scrn Not Detected (NotDetected) 07/14/17 14:00 U Benzodiazepines Scrn Not Detected (NotDetected) 07/14/17 14:00 Urine Cocaine Screen Not Detected (NotDetected) 07/14/17 14:00 U Marijuana (THC) Screen Detected (NotDetected) H 07/14/17 14:00 Risk Assessment: Patient's risk for self-harm is low, she is compliant with medication, has a supportive family. Discharge Plan: Patient will return home to live with her , son and father and will continue on Abilify 15 mg orally until July 25 which will complete 2 weeks of oral medication after her injection of Abilify Maintena 400 mg on July 10. She will be due for her next injection of Abilify Maintena on August 07. Patient will also continue on melatonin 3 mg at bedtime and Vistaril 25 mg as needed 3 times a day for anxiety and she will be given scripts. Patient and I discussed the need for a schedule for caring for their son, that she needs to sleep at night for at least 6 hours without interruption. I also encouraged the patient to ask for any assistance from the visiting nurse if she is having any questions about the care of her son. Patient will follow-up with [facility] in [facility], she will follow-up with her fountain pen turner Dr. Krishnan at their scheduled visit. Patient Condition at Discharge: Stable Plan - Discharge Summary New Discharge Prescriptions: New hydrOXYzine PAMOATE [Vistaril] 25 mg PO Q8HR PRN #28 cap PRN Reason: Anxiety Melatonin 3 mg PO HS #28 tab Continue [id number] Acid [-U Capsule (formulary)] 1 cap PO DAILY ARIPiprazole [Abilify] 15 mg PO DAILY #8 ARIPiprazole IM [Abilify Maintena] 400 mg IM Q28D #1 Discharge Medication List [id number] Acid [-U Capsule (formulary)] 1 cap PO DAILY 09/19 [History] ARIPiprazole IM [Abilify Maintena] 400 mg IM Q28D #1 07/17/17 [Rx] ARIPiprazole [Abilify] 15 mg PO DAILY #8 07/17/17 [Rx] Melatonin 3 mg PO HS #28 tab 07/17/17 [Rx] hydrOXYzine PAMOATE [Vistaril] 25 mg PO Q8HR PRN #28 cap 07/17/17 [Rx] Follow up Appointment(s)/Referral(s): [facility] [Outside] - 07/21/17 9:00 am (Desean Conner) None,Stated [Primary Care Provider] - 1-2 days Patient Instructions/Handouts: How to Stop Smoking (DC), Bipolar Disorder (DC) Activity/Diet/Wound Care/Special Instructions: Remove all weapons and firearms from the home; Refrain from street drugs and alcohol; Follow-up with PCP in 1-2 days; Follow-up with Dr. Eulogio CULVER for six weeks post check-up call for appointment or keep the one already made ; Keep all scheduled follow-up appointments for continuity of care; Any problems call your PCP or the Crisis Line at or [phone] in case of emergencly. Discharge Disposition: HOME SELF-CARE
[2017-07-17] MEDS: PRENATAL VIT-IRON-FOLIC ACID 1 EACH CAP PO SCH (11:46)
== END 2017-07-17 13:40 | disposition home or self-care (01) | DRG 885 ==
LOC: EC 14:10 → 3MHU 19:08
PROVIDERS: ADMIT Psychiatry & Neurology Psychiatry; ATTEND Psychiatry & Neurology Psychiatry
DX: F31.9 Bipolar disorder, unspecified (principal); E80.4 Gilbert syndrome; F17.200 Nicotine dependence, unspecified, uncomplicated; G47.00 Insomnia, unspecified; I73.00 Raynaud's syndrome without gangrene; N92.1 Excessive and frequent menstruation with irregular cycle; Z72.820 Sleep deprivation; Z79.899 Other long term (current) drug therapy; Z82.49 Family history of ischemic heart disease and other diseases of the circulatory system; Z82.5 Family history of asthma and other chronic lower respiratory diseases; Z83.3 Family history of diabetes mellitus; Z79.2 Long term (current) use of antibiotics
CPT/HCPCS: 36415; 80053; 80306; 81025; 82075; 83520; 84443; 85025; 99285

== ENCOUNTER 2018-01-16 21:50 | Inpatient (IN) | payer MEDICAID, OTHER ==
[2018-01-16 22:29] LABS: Appearance,Urine Cloudy (Clear); Bacteria,Urine Rare /hpf; Bilirubin,Urine Negative (Negative); Blood,Urine Moderate (Negative); Color,Urine Yellow; Glucose,Urine (UA) Negative (Negative); Ketones,Urine Negative (Negative); Leukocyte Esterase,Urine Large (Negative); Mucus,Urine Occasional /hpf; Nitrite,Urine Positive (Negative); Protein,Urine 1+ (Negative); RBC,Urine 120 /hpf (0-5); Specific Gravity,Urine 1.017 (1.001-1.035); Squamous Epithelial Cell,Urine <1 /hpf (0-4); Urobilinogen,Urine <2.0 mg/dL (<2.0); WBC,Urine >182 /hpf (0-5)
[2018-01-16] MEDS ORDERED: SULFAMETHOX-TMP 800-160MG 1 EACH TAB PO STA (22:40)
[2018-01-16] MEDS ORDERED: PHENAZOPYRIDINE 100 MG TAB PO STA (22:40)
[2018-01-16 22:42] LABS: Amphetamine Screen,Urine Not Detected (NotDetected); Barbiturate Screen,Urine Not Detected (NotDetected); Benzodiazepines Screen,Urine Not Detected (NotDetected); Cocaine Screen,Urine Not Detected (NotDetected); Methadone Screen, Urine Not Detected (NotDetected); Opiate Screen,Urine Not Detected (NotDetected); Oxycodone Screen, Urine Not Detected (NotDetected); Phencyclidine Screen,Urine Not Detected (NotDetected); Tricyclic Antidepressant,Urine Not Detected (NotDetected); Urn Cannabinoid Scrn Detected (NotDetected)
--- NOTE | 2018-01-16 23:02 | ED ---
Psych HPI - General Chief Complaint: Psychiatric Symptoms Stated Complaint: Mental Health Eval Time Seen by Provider: 01/16/18 22:14 Source: patient Mode of arrival: ambulatory - History of Present Illness Initial Comments: This patient is 27-year-old woman who presents with complaint that she believes she is becoming manic. The patient describes having anxiety and racing thoughts. She states that she is having insomnia and that she often will wake after sleeping only 2-3 hours and then is not able to sleep due to racing thoughts and anxiety. She states that she has history of bipolar and had been taking Abilify. She stopped taking her medication and stopped going to [facility] probably a bit over 2 months ago. She states that it is may have also contributed to her quitting a job a number of weeks ago. She feels she is also not paying attention to hygiene. The patient's is here and corroborates the statements. On review of systems, patient complains of having urinary frequency and dysuria, she states this feels identical to previous urinary tract infection and states symptoms have been going on for a few days now. MD Complaint: other (Anxiety and insomnia) -: week(s) Associated Psychiatric Symptoms: racing thoughts History of same: Yes Quality: getting worse Improves With: none Worsens With: other Context: not taking psychiatric medications Associated Symptoms: other (Dysuria and frequency) - Related Data Previous Rx's Medication Instructions Recorded ARIPiprazole [Abilify] 15 mg PO DAILY #8 07/17/17 Allergies Allergy/AdvReac Type Severity Reaction Status Date / Time bupropion HCl Allergy Rash/Hives Verified 01/16/18 22:25 [From Wellbutrin] citalopram hydrobromide AdvReac manic Verified 01/16/18 22:25 [From Celexa] duloxetine HCl AdvReac manic Verified 01/16/18 22:25 [From Cymbalta] escitalopram oxalate AdvReac manic Verified 01/16/18 22:25 [From Lexapro] Review of Systems ROS Statement: Those systems with pertinent positive or pertinent negative responses have been documented in the HPI. ROS Other: All systems not noted in ROS Statement are negative. Constitutional: Denies: fever, chills, weakness Eyes: Denies: vision change Respiratory: Denies: cough, dyspnea Cardiovascular: Denies: chest pain, palpitations, syncope Gastrointestinal: Denies: abdominal pain, vomiting, diarrhea Genitourinary: Reports: dysuria, frequency. Denies: hematuria, discharge Musculoskeletal: Denies: back pain Skin: Denies: rash Neurological: Denies: headache, weakness, numbness Psychiatric: Reports: as per HPI, anxiety, other (Racing thoughts. Insomnia.). Denies: depression, homicidal thoughts, suicidal thoughts Past Medical History Past Medical History: No Reported History Additional Past Medical History / Comment(s): Gilbert's syndrome, Raynaud History of Any Multi-Drug Resistant Organisms: None Reported Past Surgical History: Cholecystectomy, Orthopedic Surgery Additional Past Surgical History / Comment(s): Left ring finger surgery Past Anesthesia/Blood Transfusion Reactions: No Reported Reaction Past Psychological History: Bipolar, Depression, PTSD Smoking Status: Current every day smoker Past Alcohol Use History: Occasional Past Drug Use History: Marijuana - Past Family History Father Family Medical History: COPD, Coronary Artery Disease (CAD) Additional Family Medical History / Comment(s): Father is alive at 67 years of age with history of CAD and COPD Mother Family Medical History: Diabetes Mellitus, Hypertension Additional Family Medical History / Comment(s): Mother is alive with history of DM and HTN. Brother(s) Additional Family Medical History / Comment(s): Patient has 5 siblings with no major medical problems. General Exam Limitations: no limitations General appearance: alert, in no apparent distress Head exam: Present: atraumatic, normocephalic Eye exam: Present: normal appearance. Absent: scleral icterus, conjunctival injection Respiratory exam: Present: normal lung sounds bilaterally. Absent: respiratory distress, wheezes, rales, rhonchi, stridor Cardiovascular Exam: Present: regular rate, normal rhythm, normal heart sounds. Absent: systolic murmur, diastolic murmur, rubs, gallop GI/Abdominal exam: Present: soft. Absent: tenderness Back exam: Absent: CVA tenderness (R), CVA tenderness (L) Neurological exam: Present: alert Skin exam: Present: warm, dry, intact, normal color. Absent: rash Course Vital Signs 01/16/18 22:00 Temperature 97.2 F L Pulse Rate 92 Respiratory 18 Rate Blood Pressure 109/70 O2 Sat by Pulse 99 Oximetry Medical Decision Making - Lab Data Lab Results 03/16/18 03/16/18 Range/Units 22:16 22:16 Urine Color Yellow Urine Appearance Cloudy H (Clear) Urine pH 6.0 (5.0-8.0) Ur Specific [place] 1.017 (1.001-1.035) Urine Protein 1+ H (Negative) Urine Glucose (UA) Negative (Negative) Urine Ketones Negative (Negative) Urine Blood Moderate H (Negative) Urine Nitrite Positive H (Negative) Urine Bilirubin Negative (Negative) Urine Urobilinogen <2.0 (<2.0) mg/dL Ur Leukocyte Esterase Large H (Negative) Urine RBC 120 H (0-5) /hpf Urine WBC >182 H (0-5) /hpf Urine WBC Clumps Rare H (None) /hpf Ur Squamous Epith Cells <1 (0-4) /hpf Urine Bacteria Rare H (None) /hpf Urine Mucus Occasional H (None) /hpf Urine HCG, Qual Not Detected (Not Detectd) Urine Opiates Screen Not Detected (NotDetected) Ur Oxycodone Screen Not Detected (NotDetected) Urine Methadone Screen Not Detected (NotDetected) Ur Propoxyphene Screen Not Detected (NotDetected) Ur Barbiturates Screen Not Detected (NotDetected) U Tricyclic Antidepress Not Detected (NotDetected) Ur Phencyclidine Scrn Not Detected (NotDetected) Ur Amphetamines Screen Not Detected (NotDetected) U Methamphetamines Scrn Not Detected (NotDetected) U Benzodiazepines Scrn Not Detected (NotDetected) Urine Cocaine Screen Not Detected (NotDetected) U Marijuana (THC) Screen Detected H (NotDetected) Disposition Clinical Impression: Elenita (monopolar) single episode or unspecified, UTI (lower urinary tract infection) Disposition: ADMITTED IP TO THIS [facility] Condition: Fair Referrals: Nonstaff,Physician [Primary Care Provider] - 1-2 days
[2018-01-17] MEDS ORDERED: MAG HYDROX/AL HYDROX/SIMETH 30 ML CUP PO PRN (00:07)
[2018-01-17] MEDS ORDERED: LORazepam 1 MG TAB PO PRN (00:07)
[2018-01-17] MEDS ORDERED: MAGNESIUM HYDROXIDE 2,400 MG/10 ML CUP PO PRN (00:07)
[2018-01-17] MEDS ORDERED: ACETAMINOPHEN TAB 325 MG TAB PO PRN (00:07)
[2018-01-17 01:24] VITALS: BMI 24.9
--- NOTE | 2018-01-17 01:37 | P.HPMEDMHU ---
History of Present Illness H&P Date: 01/17/18 Chief Complaint: dysuria Patient is a 27-year-old female with a past medical history of bipolar disorder, PTSD, Leary syndrome, Tobacco abuse, Reynauds disease, and irritable bowel syndrome who presented to the emergency department with complaints of anxiety and racing thoughts. She has been admitted to the mental health unit and we are asked to consult regarding her dysuria. Patient seen and examined at bedside. She states that the last week and a half she's been having frequent and painful urination. She felt as though she had a urinary tract infection but did not have time to go to her family doctor. She also reports that she's had a decreased appetite and has lost approximately 5 pounds. She denies any fevers or chills. She's not had any nausea, vomiting, or unusual changes in bowel habits. She does have durable bowel syndrome. Review of Systems General: no fever/chills, no rigors, + weight loss, no unusual fatigue, + decreased appetite Eyes: no noticeable visual changes, no loss of vision ENT: no rhinorrhea, no congestion, no sore throat Cardiovascular: no chest pain, no palpitations, no preyncope/syncope, no edema Pulmonary: no shortness of breath, no wheezing, no cough Abdominal: no abdominal pain, no constipation, no diarrhea, no vomiting, no nausea Genitourinary: + dysuria, + urinary frequency, no unusual discharge/odor Neuro: no unusual paresthesias, no unusual paresis/paralysis, no headache Dermatologic: no unusual rashes, no unusual lesions, no unusual changes in nails Hematologic: no hemoptysis, no hematuria, no melena/hematochezia Psychiatric: + feeling in crisis Past Medical History Additional Past Medical History / Comment(s): Gilbert's syndrome, Raynaud syndrome, IBS History of Any Multi-Drug Resistant Organisms: None Reported Past Surgical History: Cholecystectomy, Orthopedic Surgery Additional Past Surgical History / Comment(s): Left ring finger surgery Past Anesthesia/Blood Transfusion Reactions: No Reported Reaction Smoking Status: Current every day smoker Past Alcohol Use History: Occasional Past Drug Use History: Marijuana - Past Family History Father Family Medical History: COPD, Coronary Artery Disease (CAD) Additional Family Medical History / Comment(s): Father is alive with history of CAD and COPD Mother Family Medical History: Diabetes Mellitus, Hypertension Additional Family Medical History / Comment(s): Mother is alive with history of DM and HTN. Brother(s) Additional Family Medical History / Comment(s): Patient has 5 siblings with no major medical problems. Medications and Allergies Home Medications Medication Instructions Recorded Confirmed Type ARIPiprazole [Abilify] 15 mg PO DAILY #8 07/17/17 01/17/18 Rx Allergies Allergy/AdvReac Type Severity Reaction Status Date / Time bupropion HCl Allergy Rash/Hives Verified 01/17/18 00:16 [From Wellbutrin] citalopram hydrobromide AdvReac manic Verified 01/17/18 00:16 [From Celexa] duloxetine HCl AdvReac manic Verified 01/17/18 00:16 [From Cymbalta] escitalopram oxalate AdvReac manic Verified 01/17/18 00:16 [From Lexapro] Physical Exam Osteopathic Statement: *. No significant issues noted on an osteopathic structural exam other than those noted in the History and Physical/Consult. Vitals: Vital Signs Temp Pulse Pulse Resp BP BP Pulse Ox 01/17/18 01:02 97.4 F L 73 15 125/72 01/16/18 22:00 97.2 F L 92 18 109/70 99 Intake and Output 01/16/18 01/16/18 01/17/18 14:59 22:59 06:59 Other: Weight 79.379 kg 76.6 kg General: non toxic, no distress, appears at stated age, normal weight Derm: no unusual rashes/lesions no unusual ecchymoses, warm, dry Head: atraumatic, normocephalic, symmetric Eyes: EOMI, no lid lag, anicteric sclera, pupils equal round reactive to light ENT: Nose and ears atraumatic, no thrush, no pharyngeal erythema Neck: No thyromegaly, no cervical lymphadenopathy, trachea midline, supple Mouth: no lip lesion, mucus membranes moist Cardiovascular: S1S2 reg, no murmur, positive posterior tibial pulse bilateral, no edema Lungs: CTA bilateral, no rhonchi, no rales , no accessory muscle use Abdominal: soft, +tender to palpation suprpubic, no guarding, no appreciable organomegaly Ext: no gross muscle atrophy, muscle strength 5 out of 5 in all 4 extremities grossly, no contractures, Neuro: CN II-XI grossly intact, light touch intact all 4 extremities, finger to nose within normal limits, Psych: Alert, oriented, appropriate affect Cranial Nerve Examination - Cranial Nerves Cranial Nerve II- Optic: Intact Cranial Nerve III- Oculomotor: Intact Cranial Nerve IV- Trochlear: Intact Cranial Nerve V- Trigeminal: Intact Cranial Nerve - Abducens: Intact Cranial Nerve VII- Facial: Intact Cranial Nerve VIII- Auditory: Intact Cranial Nerve IX- Glossopharyngeal: Intact Cranial Nerve X- Vagus: Intact Cranial Nerve XI- Accessory: Intact Cranial Nerve XII- Hypoglossal: Intact Results Labs: Abnormal Lab Results - Last 24 Hours (Table) 01/16/18 Range/Units 22:16 Urine Appearance Cloudy H (Clear) Urine Protein 1+ H (Negative) Urine Blood Moderate H (Negative) Urine Nitrite Positive H (Negative) Ur Leukocyte Esterase Large H (Negative) Urine RBC 120 H (0-5) /hpf Urine WBC >182 H (0-5) /hpf Urine WBC Clumps Rare H (None) /hpf Urine Bacteria Rare H (None) /hpf Urine Mucus Occasional H (None) /hpf U Marijuana (THC) Screen Detected H (NotDetected) Thrombosis Risk Factor Assmnt - DVT/VTE Prophylaxis DVT/VTE Prophylaxis: Low risk, early ambulation encouraged Assessment and Plan Assessment: UTI - bactrim DS BID X 3 days - urine culture - check CBC Gilbert's Syndrome - s/p luisa - anticipate that bilirubin might be elevated. Tobacco abuse - cessation - nicotine replacement Bipolar - your psych management ISD - prn maalox and milk of mag Thank you for allowing us to participate in the care of this patient. We will follow peripherally. Do not hesitate to contact us with questions. Someone can be reached from the [facility] hospitalist group at all hours of the day at [phone].
[2018-01-17] MEDS: NICOTINE 14MG/24HR PATCH TRANSDERM SCH (08:17)
[2018-01-17] MEDS: SULFAMETHOX-TMP 800-160MG 1 EACH TAB PO SCH ×2 (08:17→20:00)
[2018-01-17 08:51] LABS: HCT 43.3 % (34.0-46.0); HGB 15.1 gm/dL (11.4-16.0); MCH 29.9 pg (25.0-35.0); MCV 85.5 fL (80.0-100.0); Mean Platelet Volume 7.5; Platelet Count 200 k/uL (150-450); RBC 5.06 m/uL (3.80-5.40); RDW 11.6 % (11.5-15.5); WBC 10.7 k/uL (3.8-10.6)
[2018-01-17 08:59] LABS: ALT 22 U/L (9-52); AST 14 U/L (14-36); Albumin 4.3 g/dL (3.5-5.0); Alkaline Phosphatase 130 U/L (38-126); Anion Gap 12 mmol/L; Blood Urea Nitrogen 8 mg/dL (7-17); Calcium 9.3 mg/dL (8.4-10.2); Carbon Dioxide 23 mmol/L (22-30); Chloride 107 mmol/L (98-107); Cholesterol 177 mg/dL (<200); Glucose 142 mg/dL (74-99); HDL Cholesterol 47 mg/dL (40-60); LDL Cholesterol,Calculated 79 mg/dL (0-99); Potassium 3.7 mmol/L (3.5-5.1); Sodium 142 mmol/L (137-145); Total Bilirubin 1.2 mg/dL (0.2-1.3); Total Protein 7.2 g/dL (6.3-8.2); Triglycerides 257 mg/dL (<150)
--- NOTE | 2018-01-17 12:37 | P.HP ---
Psychiatric H&P - . H&P Date: 01/17/18 History & Physical: Allergies Allergy/AdvReac Type Severity Reaction Status Date / Time bupropion HCl Allergy Rash/Hives Verified 01/17/18 00:16 [From Wellbutrin] citalopram hydrobromide AdvReac manic Verified 01/17/18 00:16 [From Celexa] duloxetine HCl AdvReac manic Verified 01/17/18 00:16 [From Cymbalta] escitalopram oxalate AdvReac manic Verified 01/17/18 00:16 [From Lexapro] Vital Signs Temp 97.4 F L 01/17/18 01:02 Pulse 73 01/17/18 01:02 Resp 15 01/17/18 01:02 BP 125/72 01/17/18 01:02 Pulse Ox 99 01/16/18 22:00 Intake & Output 01/16/18 01/17/18 01/17/18 18:59 06:59 18:59 Weight 76.6 kg Laboratory Last Values WBC 10.7 k/uL (3.8-10.6) H 01/17/18 08:29 RBC 5.06 m/uL (3.80-5.40) 01/17/18 08:29 Hgb 15.1 gm/dL (11.4-16.0) 01/17/18 08:29 Hct 43.3 % (34.0-46.0) 01/17/18 08:29 MCV 85.5 fL (80.0-100.0) 01/17/18 08:29 MCH 29.9 pg (25.0-35.0) 01/17/18 08:29 MCHC 35.0 g/dL (31.0-37.0) 01/17/18 08:29 RDW 11.6 % (11.5-15.5) 01/17/18 08:29 Plt Count 200 k/uL (150-450) 01/17/18 08:29 Sodium 142 mmol/L (137-145) 01/17/18 08:29 Potassium 3.7 mmol/L (3.5-5.1) 01/17/18 08:29 Chloride 107 mmol/L (98-107) 01/17/18 08:29 Carbon Dioxide 23 mmol/L (22-30) 01/17/18 08:29 Anion Gap 12 mmol/L 01/17/18 08:29 BUN 8 mg/dL (7-17) 01/17/18 08:29 Creatinine 0.79 mg/dL (0.52-1.04) 01/17/18 08:29 Est GFR (CKD-EPI)AfAm >90 (>60 ml/min/1.73 sqM) 01/17/18 08:29 Est GFR (CKD-EPI)NonAf >90 (>60 ml/min/1.73 sqM) 01/17/18 08:29 Glucose 142 mg/dL (74-99) H 01/17/18 08:29 Calcium 9.3 mg/dL (8.4-10.2) 01/17/18 08:29 Total Bilirubin 1.2 mg/dL (0.2-1.3) 01/17/18 08:29 AST 14 U/L (14-36) 01/17/18 08:29 ALT 22 U/L (9-52) 01/17/18 08:29 Alkaline Phosphatase 130 U/L (38-126) H 01/17/18 08:29 Total Protein 7.2 g/dL (6.3-8.2) 01/17/18 08:29 Albumin 4.3 g/dL (3.5-5.0) 01/17/18 08:29 Triglycerides 257 mg/dL (<150) H 01/17/18 08:29 Cholesterol 177 mg/dL (<200) 01/17/18 08:29 LDL Cholesterol, Calc 79 mg/dL (0-99) 01/17/18 08:29 HDL Cholesterol 47 mg/dL (40-60) 01/17/18 08:29 TSH 1.710 mIU/L (0.465-4.680) 01/17/18 08:29 Urine Color Yellow 01/16/18 22:16 Urine Appearance Cloudy (Clear) H 01/16/18 22:16 Urine pH 6.0 (5.0-8.0) 01/16/18 22:16 Ur Specific [place] 1.017 (1.001-1.035) 01/16/18 22:16 Urine Protein 1+ (Negative) H 01/16/18 22:16 Urine Glucose (UA) Negative (Negative) 01/16/18 22:16 Urine Ketones Negative (Negative) 01/16/18 22:16 Urine Blood Moderate (Negative) H 01/16/18 22:16 Urine Nitrite Positive (Negative) H 01/16/18 22:16 Urine Bilirubin Negative (Negative) 01/16/18 22:16 Urine Urobilinogen <2.0 mg/dL (<2.0) 01/16/18 22:16 Ur Leukocyte Esterase Large (Negative) H 01/16/18 22:16 Urine RBC 120 /hpf (0-5) H 01/16/18 22:16 Urine WBC >182 /hpf (0-5) H 01/16/18 22:16 Urine WBC Clumps Rare /hpf (None) H 01/16/18 22:16 Ur Squamous Epith Cells <1 /hpf (0-4) 01/16/18 22:16 Urine Bacteria Rare /hpf (None) H 01/16/18 22:16 Urine Mucus Occasional /hpf (None) H 01/16/18 22:16 Urine HCG, Qual Not Detected (Not Detectd) 01/16/18 22:16 Urine Opiates Screen Not Detected (NotDetected) 01/16/18 22:16 Ur Oxycodone Screen Not Detected (NotDetected) 01/16/18 22:16 Urine Methadone Screen Not Detected (NotDetected) 01/16/18 22:16 Ur Propoxyphene Screen Not Detected (NotDetected) 01/16/18 22:16 Ur Barbiturates Screen Not Detected (NotDetected) 01/16/18 22:16 U Tricyclic Antidepress Not Detected (NotDetected) 01/16/18 22:16 Ur Phencyclidine Scrn Not Detected (NotDetected) 01/16/18 22:16 Ur Amphetamines Screen Not Detected (NotDetected) 01/16/18 22:16 U Methamphetamines Scrn Not Detected (NotDetected) 01/16/18 22:16 U Benzodiazepines Scrn Not Detected (NotDetected) 01/16/18 22:16 Urine Cocaine Screen Not Detected (NotDetected) 01/16/18 22:16 U Marijuana (THC) Screen Detected (NotDetected) H 01/16/18 22:16 01/17/18 12:27 IDENTIFYING DATA: 27-year-old female patient HPI: Patient is admitted to the inpatient psychiatric unit on a voluntary basis with recent mood symptoms as well as concern of thoughts of suicide. Patient states that she got off her medications and started to have symptoms such as depression and breanna. Says she's not been eating well or sleeping well. She says she's not been caring for herself. She does relay that she had thoughts of suicide but says that she knows better than to act on it. She has a somewhat 7-month-old and her has been amazing with helping out a lot with him, she says her son's needs are being met. She says she feels like visitation with her son would be helpful her and mom would bring him. She currently is not breast-feeding. PAST PSYCHIATRIC HISTORY: History of prostate 15 inpatient psychiatric admissions. She said 3 suicide attempts, 2 were overdoses 1 was slitting her wrists. She was going to treatment [facility] but says she has personal issues with going there and it's been about a month since she has gone. Most recently she was on the Abilify injections once a month and was taking Abilify 20 mg daily probably 2 times a week with getting the injection. Last time she received her injection was December, greater than a month ago. Abilify work for her but she didn't like it and she has had success with Depakote in the past. She says Geodon shots of calm her down. She also is taking Vistaril 25 more grams 3 times a day when necessary which works well for her anxiety. She is not on in active treatment order. She feels comfortable with compliance with medications. PMH: IBS, torn rotator cuff. ALLERGIES: Wellbutrin, Celexa, Cymbalta, Lexapro MEDICATIONS: Tylenol when necessary, Maalox when necessary, milk of magnesia when necessary, Habitrol, Bactrim DS CHEMICAL DEPENDENCY HISTORY: Patient reports that she has been using marijuana daily lately. She is looking to change that. Moderate alcohol use, she did some binge drinking when she was approximately 22. FAMILY PSYCHIATRIC HISTORY: Mom with bipolar disorder, not diagnosed. A lot of cousins on her dad's side with bipolar disorder. Addiction in the family. FAMILY CHEMICAL DEPENDENCY HISTORY: Reports having addiction in the family. SOCIAL HISTORY: Lives with her , son and father. No current work. She is on SSI and SSD. This is her only marriage, she has 1 child. MENTAL STATUS EXAM: He is alert and cooperative with the interview. Speech is fluent, not rapid or pressured. Thought processes organized. Her mood is described as anxiety, relay she feels pretty stable in terms of her mood currently. She denies any current thoughts of harm to self or others. She denies any hallucinations. She does not make any sadie delusional statements. Cognitively she appears very grossly intact. I do not note any significant disorientation or memory disturbance. Her insight is adequate, judgment shows evidence of recent impairment. STRENGTHS/WEAKNESSES: Strengths-family support; weaknesses-coping skills, not currently in outpatient treatment INTELLECTUAL FUNCTIONING: Average IMPRESSIONS: Bipolar disorder, depressed with recent reported manic features; unspecified anxiety disorder; cannabis use disorder; rule out history of alcohol use disorder PLAN: Patient be admitted to inpatient psychiatric unit [facility] a voluntary basis. She'll be placed on SP 15 minute precautions. Baseline laboratory workup will be done the patient. We will look into family supports. medical consultation will be ordered. We'll initiate Geodon 40 mg twice a day to help stabilize mood. We'll monitor risk compliance manager for any side effects. We'll reinitiate Vistaril when necessary for anxiety. Estimated length of stay is 3-5 days. Prognosis is guarded. We'll continue to cover this patient for Dr. Beatty through the weekend.
[2018-01-17] MEDS: ZIPRASIDONE 40 MG CAP PO SCH ×2 (12:57→20:00)
[2018-01-17] MEDS: hydrOXYzine PAMOATE 25 MG CAP PO PRN ×2 (14:54→21:59)
[2018-01-17 20:43] LABS: Hemoglobin A1C 5.1 % (4.0-6.0)
[2018-01-18 07:14] VITALS: RESP 16
[2018-01-18] MEDS: ZIPRASIDONE 40 MG CAP PO SCH ×2 (08:16→20:03)
[2018-01-18] MEDS: SULFAMETHOX-TMP 800-160MG 1 EACH TAB PO SCH ×2 (08:16→20:03)
[2018-01-18] MEDS: hydrOXYzine PAMOATE 25 MG CAP PO PRN ×2 (08:36→15:32)
[2018-01-18] MEDS: NICOTINE 14MG/24HR PATCH TRANSDERM SCH (11:35)
--- NOTE | 2018-01-18 15:26 | P.PN ---
Progress Note - Text Progress Note Date: 01/18/18 Interval history: Patient is seen in cross coverage today for Dr. Collins. She reports that her mood is doing much better and she feels the Geodon is very effective for her. She does describe some anxiety today. She describes having an issue with childcare for tomorrow. She inquires regarding discharge today. We discussed the importance of monitoring for consistency in her improvement and also talked about scheduling a family meeting prior to discharge and her seeing Dr. Collins tomorrow. She does not seem to voice any adverse psychotropic medication side effects. Mental status exam: She is alert and cooperative with the interview. Her speech is fluent, not rapid or pressured. Her mood is improved. She does not verbalize any thoughts of harm to self or others. She does not show any active evidence of psychosis. She is not exhibiting any agitation. Plan: Patient be maintained on current psychotropic medication regimen. Dr. Collins to initiate care this patient starting tomorrow. Look for likely discharge planning soon. Family meeting is pending.
[2018-01-18] MEDS ORDERED: MELATONIN 3 MG TABLET PO PRN (21:02)
[2018-01-19 07:16] VITALS: BP 119/59; PULSE 72; TEMP 98
[2018-01-19] MEDS: SULFAMETHOX-TMP 800-160MG 1 EACH TAB PO SCH (07:48)
[2018-01-19] MEDS: ZIPRASIDONE 40 MG CAP PO SCH (07:48)
[2018-01-19] MEDS: NICOTINE 14MG/24HR PATCH TRANSDERM SCH (07:49)
[2018-01-19] MEDS: hydrOXYzine PAMOATE 25 MG CAP PO PRN (08:54)
--- NOTE | 2018-01-19 11:07 | P.DS ---
Providers Date of admission: 01/16/18 23:40 Expected date of discharge: 01/19/18 Attending physician: Brayan Collins Consults: 01/17/18 00:07 Consult Physician Routine Consulting Provider: Mounika Hope Consult Reason/Comments: medical management Do you want consulting provider notified?: Already Contacted Primary care physician: Physician Nonstaff - Discharge Diagnosis(es) (1) Bipolar 1 disorder Current Visit: Yes Status: Acute Priority: High (2) Cannabis use disorder, mild, abuse Current Visit: Yes Status: Acute Priority: Medium Hospital Course: Brief summary admission note: This patient is a 27-year-old female who was admitted to the mental health unit voluntarily for thoughts of suicide. The patient was evaluated by Dr. Goel. The patient had told him that she was off of her psychotropic medications and was starting to have symptoms of depression and breanna. She had not been eating or sleeping well and she had not been caring for herself. She described having thoughts of suicide but endorsed no intent or plan to act on those thoughts. She does have a son who is now 7 months old. She states her and her have been doing well caring for him. For full details please refer to the psychiatric evaluation dated 01/17/2018. Summary of hospital course: The patient was admitted to the mental health unit voluntarily. She was initially evaluated by Dr. Goel in seen subsequently for a progress note. I met with the patient this morning and interviewed her after reviewing the medical record. She has been started on Geodon 40 mg twice daily and she finds that effective without any report of side effects. She did use melatonin at bedtime for sleep. She states that she feels stable in terms of mood. She is endorsing no suicidal thoughts. She states she has consistently felt supported by her . Nursing informs me that the patient 's mother had called and is requesting that the patient be discharged today. The patient was seen by internal medicine she was diagnosed with urinary tract infection and placed on Bactrim. The patient feels that she safe to return home she demonstrates future oriented thinking. Mental status exam: The patient is alert she is dressed in her own clothing hygiene grooming are good. Eye contact is appropriate. She is pleasant and cooperative. She reports her mood is good. Affect is congruent and appropriately expressive. She denies having any hopelessness thinking or any suicidal or homicidal ideation intent or plan. Specifically she denies having any thoughts of harming her child. She states she has never had any thoughts of harming her child. She is endorsing no auditory or visual hallucinations or any specific delusions as we reviewed several types. She demonstrates linear thinking she demonstrates no tangential thinking loose associations or flight of ideas. She does not appear hypomanic or manic. She demonstrates no verbal or physical aggressiveness. She demonstrates no abnormal involuntary movements. She remains oriented to person place and date. Impressions 1. Bipolar 1 disorder most recent depressed, unspecified anxiety, cannabis use disorder, rule out history of alcohol use disorder 2. Urinary tract infection Plan: The patient will be discharged back home to reside with her today. We will continue Geodon 40 mg twice daily she may require further titration of this medication. This was started over the weekend she feels comfortable with the medication and endorses no side effects. We discussed the importance of taking the Geodon with meals. She may continue using melatonin if needed for sleep. There is no imminent safety risk she is appropriate for discharge back to outpatient care. She is instructed to return to hospital if any acute safety concerns. She is encouraged to discontinue use of marijuana. Patient Condition at Discharge: Stable Plan - Discharge Summary New Discharge Prescriptions: New Melatonin 3 mg PO HS PRN #30 tablet PRN Reason: Insomnia Nicotine 14Mg/24Hr Patch [Habitrol] 1 patch TRANSDERM DAILY #12 patch Sulfamethox-Tmp 800-160Mg [Bactrim DS 800-160 mg] 1 each PO BID #2 tab Ziprasidone [Geodon] 40 mg PO BID #60 cap Discontinued ARIPiprazole [Abilify] 15 mg PO DAILY #8 Discharge Medication List Melatonin 3 mg PO HS PRN #30 tablet 01/19/18 [Rx] Nicotine 14Mg/24Hr Patch [Habitrol] 1 patch TRANSDERM DAILY #12 patch 01/19/18 [ Rx] Sulfamethox-Tmp 800-160Mg [Bactrim DS 800-160 mg] 1 each PO BID #2 tab 01/19/18 [Rx] Ziprasidone [Geodon] 40 mg PO BID #60 cap 01/19/18 [Rx] Follow up Appointment(s)/Referral(s): Nonstaff,Physician [Primary Care Provider] - 1-2 days
== END 2018-01-19 12:01 | disposition home or self-care (01) | DRG 885 ==
LOC: EC 21:50 → 3MHU 23:40
PROVIDERS: ADMIT Psychiatry & Neurology Psychiatry; ATTEND Psychiatry & Neurology Psychiatry
DX: F31.9 Bipolar disorder, unspecified (principal); R45.851 Suicidal ideations; N39.0 Urinary tract infection, site not specified; F12.10 Cannabis abuse, uncomplicated; F17.200 Nicotine dependence, unspecified, uncomplicated; F43.10 Post-traumatic stress disorder, unspecified; G47.00 Insomnia, unspecified; K58.9 Irritable bowel syndrome, unspecified; Z79.899 Other long term (current) drug therapy; F41.9 Anxiety disorder, unspecified; Z88.8 Allergy status to other drugs, medicaments and biological substances; Z82.49 Family history of ischemic heart disease and other diseases of the circulatory system; Z81.8 Family history of other mental and behavioral disorders
CPT/HCPCS: 80053; 80061; 80306; 81001; 81025; 82075; 83036; 84443; 85027; 87086; 99285

== ENCOUNTER → 2018-12-24 | Outpatient (CLI) | payer OTHER ==
--- NOTE | 2018-12-25 14:44 | US ---
EXAMINATION TYPE: Transabdominal DATE OF EXAM: 12/24/2018 4:38 PM COMPARISON: NONE CLINICAL HISTORY: Z36 Confirm Dates. EXAM PERFORMED: EXAM MEASUREMENTS: GESTATIONAL AGE / DATING Physician Established: Not yet established Dates by LMP: (10 weeks/6 days) EDC: 07/16/19 Dates by First Scan: no previous Dates by Current Scan for: (11 weeks/1 days) EDC: 07/14/19 MATERNAL ANATOMY Uterus: 10.1 x 6.9 x 7.8cm Right Ovary: 2.9 x 1.5 x 1.6cm Left Ovary: 1.9 x 1.3 x 1.4cm Post CDS / Adnexa: wnl Presence of free fluid: no GESTATION / SURVEY CRL: 4.2 ( 11 weeks/1 days) Yolk Sac (normal less than 6mm): not visualized Heart Rate: 159 bpm Rhythm: Normal IUP: Viable IUP Nuchal Translucency 10-14wks (normal less than 3mm): 1mm Date of LMP: 10/09/19 Beta HcG (if available): Not available at this time IMPRESSION: 1. Single intrauterine gestation estimated at 11 weeks 1 day gestation based on crown-rump length. Ca rdiac activity measures 159 bpm.
== END | disposition home or self-care (01) ==
LOC: RADUSWWP 16:09
PROVIDERS: ATTEND Obstetrics & Gynecology
DX: Z36.9 Encounter for antenatal screening, unspecified (principal); Z3A.11 11 weeks gestation of pregnancy
CPT/HCPCS: 76801; 76813

== ENCOUNTER 2019-03-16 08:18 | Outpatient (CLI) | payer MEDICARE, OTHER ==
[2019-03-16 10:06] VITALS: BP 128/72; PULSE 77; RESP 15; TEMP 98.2
--- NOTE | 2019-03-19 17:15 | P.MSEPDOC ---
Presenting Problems - Arrival Data Date of Arrival on Unit: 03/16/19 Time of Arrival on Unit: 08:25 Mode of Transport: Ambulatory - Complaint OB-Reason for Admission/Chief Complaint: Signs/Symptoms UTI Medical History - Information : 2 Para: 1 Term: 0 : 1 Abortions: Spontaneous or Elective: 0 Number of Living Children: 1 - Gestational Age Gestational Age by VISHAL (wks/days): 22 Weeks and 3 Days - History Complications: Prior , Smoker Review of Systems - Review of Systems Constitutional: No problems Breast: No problems ENT: No problems Gastrointestinal: No problems Genitourinary: Increased frequency Musculoskeletal: No problems Neurological: No problems Skin: No problems Comment: PT HAS DIAGNOSED UTI Vital Signs - Temperature Temperature: 98.2 F Temperature Source: Temporal Artery Scan - Pulse Pulse Oximetery Pulse Rate: 77 Pulse Assessment Method: Pulse Oximetry - Respirations Respiratory Rate: 15 Oxygen Delivery Method: Room Air O2 Sat by Pulse Oximetry: 100 - Blood Pressure Right Arm Sitting Blood Pressure: 128/72 Blood Pressure Mean: 90 Blood Pressure Source: Automatic Cuff Medical Screen Scoring (Pre) - Cervical Exam Dilation: Exam Deferred Effacement: Exam Deferred Membranes: Intact - Uterine Contractions Frequency: N/A Duration: N/A Intensity: N/A - Maternal Vital Signs Maternal Temperature: N/A Maternal Blood Pressure: N/A Signs of Preeclampsia: N/A Maternal Respirations: N/A - Pain Assessment Pain Location and Character: Abdomen Pain Scale Used: Numeric (1 - 10) Pain Intensity: 3 Pain Description: *Acute Pain Frequency: Intermittent Pain Duration Units: Days Pain Behavior: Vocalization Pain Aggravating Factors: None Non-Pharmacological Interventions: Relaxation Technique - Maternal Trauma Maternal Trauma: N/A - Assessment Baseline FHR: 150 Position: N/A Station: N/A - Total Score Total Score (Pre): 0 - Level of Risk Level of Risk: Low (0-5) Physician Notification (Pre) - Physician Notified Physician Notified Date: 03/16/19 Physician Notified Time: 08:50 Spoke With: DR CHRISTOPHER Whelan Order Received: Yes - Notification Comment Comment: PT SEEN IN ER YESTERDAY AND DIAGNOSED WITH UTI. PT HAS NOT STARTED HER ANTIBIOTIC YET AND HAD INTERCOURSE LAST PM. SPEC EXAM PERFORMED, CERVIX APPEARS CLOSED. PT DC'D HOME AND WILL F/U NEXT WEEK SCHEDULED PER T.O. DR FABAIN Disposition - Disposition Discharge Date: 03/16/19 Discharge Time: 09:06 I agree with the RN Medical Screening Exam: Yes Risk & Benefit of care provided described in d/c instruction: Yes Diagnosis: URINARY TRACT INFECTION, SITE NOT SPECIFIED
== END 2019-03-16 09:06 | disposition home or self-care (01) ==
LOC: FBPOP 08:18
PROVIDERS: ATTEND Obstetrics & Gynecology
DX: O23.42 Unspecified infection of urinary tract in pregnancy, second trimester (principal); Z3A.22 22 weeks gestation of pregnancy
CPT/HCPCS: 99213

== ENCOUNTER 2019-04-07 16:48 | Inpatient (IN) | payer MEDICARE, MEDICAID ==
--- NOTE | 2019-04-07 19:04 | ED ---
General Adult HPI - General Source: patient, EMS, RN notes reviewed Mode of arrival: EMS Limitations: no limitations <Lukas Sainz - Last Filed: 04/07/19 18:58> <Laci Anton - Last Filed: 04/07/19 19:13> - General Chief complaint: Psychiatric Symptoms Stated complaint: EPS eval Time Seen by Provider: 04/07/19 17:02 - History of Present Illness Initial comments: 28-year-old female with a past psychiatric history of bipolar disorder, depression presents to the emergency department by police by petition. Patient was petioned by her high school social studies teacher for suicidal and manic thoughts. Patient was apparently complaining of suicidal thoughts. She is also stating yared her mother called the police on her after she broke into her mother's house. At this time patient is denying any suicidal thoughts. Denying thoughts of harming anyone else.Patient has no other complaints at this time including shortness of breath, chest pain, abdominal pain, nausea or vomiting, headache, or visual changes. (Lukas Sainz) - Related Data Home Medications Medication Instructions Recorded Confirmed ARIPiprazole [Abilify] 10 mg PO DAILY 04/07/19 04/07/19 Allergies Allergy/AdvReac Type Severity Reaction Status Date / Time bupropion HCl Allergy Rash/Hives Verified 04/07/19 17:30 [From Wellbutrin] citalopram hydrobromide AdvReac manic Verified 04/07/19 17:30 [From Celexa] duloxetine HCl AdvReac manic Verified 04/07/19 17:30 [From Cymbalta] escitalopram oxalate AdvReac manic Verified 04/07/19 17:30 [From Lexapro] Review of Systems ROS Other: All systems not noted in ROS Statement are negative. <Lukas Sainz - Last Filed: 04/07/19 18:58> ROS Other: All systems not noted in ROS Statement are negative. <Laci Anton - Last Filed: 04/07/19 19:13> ROS Statement: Those systems with pertinent positive or pertinent negative responses have been documented in the HPI. Past Medical History Past Medical History: No Reported History Additional Past Medical History / Comment(s): Gilbert's syndrome, Raynaud syndrome, IBS History of Any Multi-Drug Resistant Organisms: None Reported Past Surgical History: Cholecystectomy, Orthopedic Surgery Additional Past Surgical History / Comment(s): Left ring finger surgery; leep procedure Past Anesthesia/Blood Transfusion Reactions: No Reported Reaction Past Psychological History: Bipolar, Depression, PTSD Smoking Status: Current every day smoker Past Alcohol Use History: None Reported Past Drug Use History: None Reported - Past Family History Father Family Medical History: COPD, Coronary Artery Disease (CAD) Additional Family Medical History / Comment(s): Father is alive with history of CAD and COPD Mother Family Medical History: Diabetes Mellitus, Hypertension Additional Family Medical History / Comment(s): Mother is alive with history of DM and HTN. Brother(s) Additional Family Medical History / Comment(s): Patient has 5 siblings with no major medical problems. <Lukas Sainz - Last Filed: 04/07/19 18:58> General Exam Limitations: no limitations General appearance: alert, in no apparent distress Head exam: Present: atraumatic, normocephalic, normal inspection Eye exam: Present: normal appearance, PERRL, EOMI. Absent: scleral icterus, conjunctival injection, periorbital swelling ENT exam: Present: normal exam, mucous membranes moist Neck exam: Present: normal inspection, full ROM. Absent: tenderness, meningismus, lymphadenopathy Respiratory exam: Present: normal lung sounds bilaterally. Absent: respiratory distress, wheezes, rales, rhonchi, stridor Cardiovascular Exam: Present: regular rate, normal rhythm, normal heart sounds. Absent: systolic murmur, diastolic murmur, rubs, gallop, clicks GI/Abdominal exam: Present: soft, normal bowel sounds. Absent: distended, tenderness, guarding, rebound, rigid Neurological exam: Present: alert, oriented X3, CN II-XII intact Psychiatric exam: Present: normal affect, normal mood <Lukas Sainz - Last Filed: 04/07/19 18:58> Course <Laci Anton - Last Filed: 04/07/19 19:13> Vital Signs 04/07/19 16:57 Temperature 98.4 F Pulse Rate 105 H Respiratory 18 Rate Blood Pressure 141/89 O2 Sat by Pulse 100 Oximetry - Reevaluation(s) Reevaluation #1: 04/07/19 19:13 Patient is evaluated I did fill out a clinical certificate on the patient. I did review the petition that was submitted upon arrival. (Laci Anton) Medical Decision Making <Lukas Sainz - Last Filed: 04/07/19 18:58> - Medical Decision Making 28-year-old female with a past history of bipolar disorder presents by police escort due to petition. She is currently . Patient was making suicidal comments to her high school social studies teacher. She also was making comments about a conspiracy theories. On exam patient is currently denying suicidal thoughts however does seem guarded in her presentation. Known history of being manipulative about psychiatric status. Patient was evaluated by EPS and given manic nature at this time will be admitted for further inpatient management. (Lukas Sainz) Disposition Time of Disposition: 19:03 <Lukas Sainz - Last Filed: 04/07/19 18:58> <Laci Anton - Last Filed: 04/07/19 19:13> Clinical Impression: Suicidal thoughts, Bipolar disorder, Disposition: TRANSFER TO PSYCH HOSP/UNIT Referrals: Abhay Tan MD [Primary Care Provider] - 1-2 days
[2019-04-07 19:13] LABS: Amphetamine Screen,Urine Not Detected (NotDetected); Barbiturate Screen,Urine Not Detected (NotDetected); Benzodiazepines Screen,Urine Not Detected (NotDetected); Cocaine Screen,Urine Not Detected (NotDetected); Methadone Screen, Urine Not Detected (NotDetected); Opiate Screen,Urine Not Detected (NotDetected); Oxycodone Screen, Urine Not Detected (NotDetected); Phencyclidine Screen,Urine Not Detected (NotDetected); Tricyclic Antidepressant,Urine Not Detected (NotDetected); Urn Cannabinoid Scrn Detected (NotDetected)
[2019-04-07] MEDS ORDERED: ZIPRASIDONE 20 MG VIAL IM PRN (20:03)
[2019-04-07] MEDS: ACETAMINOPHEN TAB 500 MG TAB PO PRN (22:04)
--- NOTE | 2019-04-08 07:08 | P.MDCNMH ---
History of Present Illness H&P Date: 04/08/19 Chief Complaint: Petitioned by family due to manic episode 28-year-old female known bipolar disorder She was brought into the hospital after being petitioned by her social organization professor due to suicidal ideation. Patient mother called the police on her due to her behavior. Patient currently denies any suicidal or homicidal thoughts. Patient reports that she's I'm going through a lot. She also complaining of right upper molar dental pain. Otherwise denies any chest pain or trouble breathing denies any coughing or upper respiratory infection symptoms denies any abdominal pain nausea vomiting or changes in her bowel or urinary habits Review of Systems Pertinent positives as noted in HPI. All other systems were reviewed and are negative Past Medical History Past Medical History: No Reported History Additional Past Medical History / Comment(s): Gilbert's syndrome, Raynaud syndrome, IBS History of Any Multi-Drug Resistant Organisms: None Reported Past Surgical History: Cholecystectomy, Orthopedic Surgery Additional Past Surgical History / Comment(s): Left ring finger surgery; leep pr ocedure Past Anesthesia/Blood Transfusion Reactions: No Reported Reaction Past Psychological History: Bipolar, Depression, PTSD Smoking Status: Current every day smoker Past Alcohol Use History: None Reported Past Drug Use History: None Reported - Past Family History Father Family Medical History: COPD, Coronary Artery Disease (CAD) Additional Family Medical History / Comment(s): Father is alive with history of CAD and COPD Mother Family Medical History: Diabetes Mellitus, Hypertension Additional Family Medical History / Comment(s): Mother is alive with history of DM and HTN. Brother(s) Additional Family Medical History / Comment(s): Patient has 5 siblings with no major medical problems. Medications and Allergies Home Medications Medication Instructions Recorded Confirmed Type ARIPiprazole [Abilify] 20 mg PO DAILY 04/07/19 04/07/19 History Hydroxyprogesterone Caproate 250 mg SQ Q7D 04/07/19 04/07/19 History 250mg/1ml Allergies Allergy/AdvReac Type Severity Reaction Status Date / Time bupropion HCl Allergy Rash/Hives Verified 04/07/19 17:30 [From Wellbutrin] citalopram hydrobromide AdvReac manic Verified 04/07/19 17:30 [From Celexa] duloxetine HCl AdvReac manic Verified 04/07/19 17:30 [From Cymbalta] escitalopram oxalate AdvReac manic Verified 04/07/19 17:30 [From Lexapro] Physical Exam Vitals: Vital Signs Temp Pulse Pulse Resp BP BP Pulse Ox 04/08/19 06:25 98.7 F 89 16 111/58 04/07/19 20:25 97.9 F 105 H 18 133/96 04/07/19 20:15 74 16 144/100 100 04/07/19 16:57 98.4 F 105 H 18 141/89 100 Intake and Output 04/07/19 04/07/19 04/08/19 14:59 22:59 06:59 Other: Weight 68.039 kg Constitutional: No acute distress, conversant, pleasant Eyes: Anicteric sclerae, moist conjunctiva, no lid-lag Pupils equal round reactive to light ENMT: NC/AT, cracked right upper molar tooth , no drainage Oropharynx clear, no erythema, exudates Neck: Supple, FROM, no masses, or JVD No carotid bruits No thyromegaly Lungs: Clear to auscultation Clear to percussion Normal respiratory effort, no accessory muscle use Cardiovascular: Heart regular in rate and rhythm, No murmurs, gallops, or rubs No peripheral edema Abdominal: Soft Nontender, no guarding, rebound or rigidity Abdomen moving with respiration Normoactive bowel sounds No hepatomegaly, No splenomegaly palpable uterus lower abd No abdominal wall hernia noted Skin: Normal temperature, tone, texture, turgor No induration No subcutaneous nodules No rash, lesions No ulcers Extremities: No digital cyanosis No clubbing Pedal pulses intact and symmetrical Radial pulses intact and symmetrical No calf tenderness Psychiatric: Alert and oriented to person, place and time depressed affect poor judgment Neuro Muscles Strength 5/5 in all 4 extremities Sensation to light touch grossly present throughout Cranial nerves II-XII grossly intact No focal sensory deficits Lymphatics: no palpable cervical or supraclavicular , or inguinal lymph nodes Cranial Nerve Examination - Cranial Nerves Cranial Nerve II- Optic: Intact Cranial Nerve III- Oculomotor: Intact Cranial Nerve IV- Trochlear: Intact Cranial Nerve V- Trigeminal: Intact Cranial Nerve - Abducens: Intact Cranial Nerve VII- Facial: Intact Cranial Nerve VIII- Auditory: Intact Cranial Nerve IX- Glossopharyngeal: Intact Cranial Nerve X- Vagus: Intact Cranial Nerve XI- Accessory: Intact Cranial Nerve XII- Hypoglossal: Intact Results Labs: Abnormal Lab Results - Last 24 Hours (Table) 04/07/19 Range/Units 18:30 U Marijuana (THC) Screen Detected H (NotDetected) Assessment and Plan Assessment: 28-year-old female with history of bipolar disorder admitted due to manic episodes patient was petitioned by her social organization professor did suicidal and homicidal thoughts. Currently denies any. Patient is also , otherwise denies any current medical complaints. Plan: history of bipolar disorder with manic episode management per psych chronic conditions history of gilbert syndrome IBS vitamin management per OB cracked tooth consider OP consultation with a dentist Follow-up labs Thank you for allowing us to participate in the care of this patient. Do not hesitate to contact us with questions. Someone can be reached from the [facility] hospitalist group at all hours of the day at [phone].
[2019-04-08] MEDS: PRENATAL VIT-IRON-FOLIC ACID 1 EACH CAP PO SCH (07:55)
--- NOTE | 2019-04-08 08:18 | P.OBCN ---
History of Present Illness Consult date: 04/08/19 Reason for consult: other (25 weeks and bipolar admitted to [facility] by police petition) Chief complaint: with breanna History of present illness: 28 year old presents to the hospital at 25 weeks. The notes say she is having suicidal thoughts that she was police petitioned to the unit. Patient says she started abilify yesterday and never said anything about hurting herself or others. She is angry about being admitted. She is feeling baby move well, no contractions or bleeding. She does have a history of delivery at 32 weeks and is getting progesterone injections weekly. She is due for that today and I will have someone bring that med to the inpatient pharmacy so it can be given. Review of Systems All systems: negative Constitutional: Denies chills, Denies fever Eyes: denies blurred vision, denies pain Ears, nose, mouth and throat: Denies headache, Denies sore throat Cardiovascular: Denies chest pain, Denies shortness of breath Respiratory: Denies cough Gastrointestinal: Denies abdominal pain, Denies diarrhea, Denies nausea, Denies vomiting Genitourinary: Denies dysuria, Denies hematuria Musculoskeletal: Denies myalgias Integumentary: Denies pruritus, Denies rash Neurological: Denies numbness, Denies weakness Psychiatric: Denies anxiety, Denies depression Endocrine: Denies fatigue, Denies weight change Past Medical History Past Medical History: No Reported History Additional Past Medical History / Comment(s): Gilbert's syndrome, Raynaud syndrome, IBS History of Any Multi-Drug Resistant Organisms: None Reported Past Surgical History: Cholecystectomy, Orthopedic Surgery Additional Past Surgical History / Comment(s): Left ring finger surgery; leep procedure Past Anesthesia/Blood Transfusion Reactions: No Reported Reaction Past Psychological History: Bipolar, Depression, PTSD Smoking Status: Current every day smoker Past Alcohol Use History: None Reported Past Drug Use History: None Reported - Past Family History Father Family Medical History: COPD, Coronary Artery Disease (CAD) Additional Family Medical History / Comment(s): Father is alive with history of CAD and COPD Mother Family Medical History: Diabetes Mellitus, Hypertension Additional Family Medical History / Comment(s): Mother is alive with history of DM and HTN. Brother(s) Additional Family Medical History / Comment(s): Patient has 5 siblings with no major medical problems. Medications and Allergies Home Medications Medication Instructions Recorded Confirmed Type ARIPiprazole [Abilify] 20 mg PO DAILY 04/07/19 04/07/19 History Hydroxyprogesterone Caproate 250 mg SQ Q7D 04/07/19 04/08/19 History 250mg/1ml Allergies Allergy/AdvReac Type Severity Reaction Status Date / Time bupropion HCl Allergy Rash/Hives Verified 04/07/19 17:30 [From Wellbutrin] citalopram hydrobromide AdvReac manic Verified 04/07/19 17:30 [From Celexa] duloxetine HCl AdvReac manic Verified 04/07/19 17:30 [From Cymbalta] escitalopram oxalate AdvReac manic Verified 04/07/19 17:30 [From Lexapro] Exam Osteopathic Statement: *. No significant issues noted on an osteopathic struc tural exam other than those noted in the History and Physical/Consult. Vital Signs Temp Pulse Pulse Resp BP BP Pulse Ox 04/08/19 06:25 98.7 F 89 16 111/58 04/07/19 20:25 97.9 F 105 H 18 133/96 04/07/19 20:15 74 16 144/100 100 04/07/19 16:57 98.4 F 105 H 18 141/89 100 Intake and Output 04/07/19 04/08/19 04/08/19 22:59 06:59 14:59 Other: Weight 68.039 kg HEart: RRR Lungs: CTAB Abdomen: soft, nontender, gravid Extremeties: neg jana's Results Abnormal Lab Results - Last 24 Hours (Table) 04/07/19 Range/Units 18:30 U Marijuana (THC) Screen Detected H (NotDetected) Assessment and Plan (1) Bipolar disorder Current Visit: Yes Status: Acute Code(s): F31.9 - BIPOLAR DISORDER, UNSPECIFIED SNOMED Code(s): 20565521 (2) 25 weeks gestation of Current Visit: Yes Status: Acute Code(s): Z3A.25 - 25 WEEKS GESTATION OF SNOMED Code(s): 51778001 (3) History of delivery Current Visit: Yes Status: Acute Code(s): Z87.51 - PERSONAL HISTORY OF PRE- TERM LABOR SNOMED Code(s): 481430104 Plan: 1. cont current care per psych 2. 17 alpha hydroxyprogesterone weekly
[2019-04-08 08:46] LABS: Basophils % (A) 0 %; Eosinophils # (A) 0.1 k/uL (0-0.7); Eosinophils % (A) 1 %; HCT 33.8 % (34.0-46.0); HGB 11.5 gm/dL (11.4-16.0); Lymphocytes # (A) 1.9 k/uL (1.0-4.8); Lymphocytes % (A) 19 %; MCH 30.9 pg (25.0-35.0); MCV 90.8 fL (80.0-100.0); Mean Platelet Volume 7.8; Monocytes # (A) 0.4 k/uL (0-1.0); Monocytes % (A) 4 %; Neutrophils # (A) 7.8 k/uL (1.3-7.7); Neutrophils % (A) 75 %; Platelet Count 158 k/uL (150-450); RBC 3.72 m/uL (3.80-5.40); RDW 13.5 % (11.5-15.5); WBC 10.4 k/uL (3.8-10.6)
[2019-04-08 08:53] LABS: ALT 27 U/L (9-52); AST 24 U/L (14-36); African American GFR (CKD) >90 (>60 ml/min/1.73 sqM); Albumin 3.3 g/dL (3.5-5.0); Alkaline Phosphatase 92 U/L (38-126); Anion Gap 6 mmol/L; Bilirubin, Delta 0.2 mg/dL (0.0-0.2); Bilirubin,Unconjugated 1.7 mg/dL (0.0-1.1); Blood Urea Nitrogen 5 mg/dL (7-17); Calcium 8.4 mg/dL (8.4-10.2); Carbon Dioxide 24 mmol/L (22-30); Chloride 108 mmol/L (98-107); Cholesterol 130 mg/dL (<200); Glucose 98 mg/dL (74-99); HDL Cholesterol 57 mg/dL (40-60); LDL Cholesterol,Calculated 53 mg/dL (0-99); Potassium 3.2 mmol/L (3.5-5.1); Sodium 138 mmol/L (137-145); Total Bilirubin 1.9 mg/dL (0.2-1.3); Total Protein 5.7 g/dL (6.3-8.2); Triglycerides 99 mg/dL (<150)
--- NOTE | 2019-04-08 09:48 | P.HP ---
Psychiatric H&P - . History & Physical: Allergies Allergy/AdvReac Type Severity Reaction Status Date / Time bupropion HCl Allergy Rash/Hives Verified 04/07/19 17:30 [From Wellbutrin] citalopram hydrobromide AdvReac manic Verified 04/07/19 17:30 [From Celexa] duloxetine HCl AdvReac manic Verified 04/07/19 17:30 [From Cymbalta] escitalopram oxalate AdvReac manic Verified 04/07/19 17:30 [From Lexapro] Vital Signs Temp 98.7 F 04/08/19 06:25 Pulse 89 04/08/19 06:25 Resp 16 04/08/19 06:25 BP 111/58 04/08/19 06:25 Pulse Ox 100 04/07/19 20:15 Intake & Output 04/07/19 04/08/19 04/08/19 18:59 06:59 18:59 Weight 68.039 kg Laboratory Last Values WBC 10.4 k/uL (3.8-10.6) 04/08/19 08:10 RBC 3.72 m/uL (3.80-5.40) L 04/08/19 08:10 Hgb 11.5 gm/dL (11.4-16.0) 04/08/19 08:10 Hct 33.8 % (34.0-46.0) L 04/08/19 08:10 MCV 90.8 fL (80.0-100.0) 04/08/19 08:10 MCH 30.9 pg (25.0-35.0) 04/08/19 08:10 MCHC 34.0 g/dL (31.0-37.0) 04/08/19 08:10 RDW 13.5 % (11.5-15.5) 04/08/19 08:10 Plt Count 158 k/uL (150-450) 04/08/19 08:10 Neutrophils % 75 % 04/08/19 08:10 Lymphocytes % 19 % 04/08/19 08:10 Monocytes % 4 % 04/08/19 08:10 Eosinophils % 1 % 04/08/19 08:10 Basophils % 0 % 04/08/19 08:10 Neutrophils # 7.8 k/uL (1.3-7.7) H 04/08/19 08:10 Lymphocytes # 1.9 k/uL (1.0-4.8) 04/08/19 08:10 Monocytes # 0.4 k/uL (0-1.0) 04/08/19 08:10 Eosinophils # 0.1 k/uL (0-0.7) 04/08/19 08:10 Basophils # 0.0 k/uL (0-0.2) 04/08/19 08:10 Sodium 138 mmol/L (137-145) 04/08/19 08:10 Potassium 3.2 mmol/L (3.5-5.1) L 04/08/19 08:10 Chloride 108 mmol/L (98-107) H 04/08/19 08:10 Carbon Dioxide 24 mmol/L (22-30) 04/08/19 08:10 Anion Gap 6 mmol/L 04/08/19 08:10 BUN 5 mg/dL (7-17) L 04/08/19 08:10 Creatinine 0.55 mg/dL (0.52-1.04) 04/08/19 08:10 Est GFR (CKD-EPI)AfAm >90 (>60 ml/min/1.73 sqM) 04/08/19 08:10 Est GFR (CKD-EPI)NonAf >90 (>60 ml/min/1.73 sqM) 04/08/19 08:10 Glucose 98 mg/dL (74-99) 04/08/19 08:10 Calcium 8.4 mg/dL (8.4-10.2) 04/08/19 08:10 Total Bilirubin 1.9 mg/dL (0.2-1.3) H 04/08/19 08:10 Conjugated Bilirubin 0.0 mg/dL (0.0-0.3) 04/08/19 08:10 Unconjugated Bilirubin 1.7 mg/dL (0.0-1.1) H 04/08/19 08:10 Delta Bilirubin 0.2 mg/dL (0.0-0.2) 04/08/19 08:10 AST 24 U/L (14-36) 04/08/19 08:10 ALT 27 U/L (9-52) 04/08/19 08:10 Alkaline Phosphatase 92 U/L (38-126) 04/08/19 08:10 Total Protein 5.7 g/dL (6.3-8.2) L 04/08/19 08:10 Albumin 3.3 g/dL (3.5-5.0) L 04/08/19 08:10 Triglycerides 99 mg/dL (<150) 04/08/19 08:10 Cholesterol 130 mg/dL (<200) 04/08/19 08:10 LDL Cholesterol, Calc 53 mg/dL (0-99) 04/08/19 08:10 HDL Cholesterol 57 mg/dL (40-60) 04/08/19 08:10 TSH 0.480 mIU/L (0.465-4.680) 04/08/19 08:10 Urine Opiates Screen Not Detected (NotDetected) 04/07/19 18:30 Ur Oxycodone Screen Not Detected (NotDetected) 04/07/19 18:30 Urine Methadone Screen Not Detected (NotDetected) 04/07/19 18:30 Ur Propoxyphene Screen Not Detected (NotDetected) 04/07/19 18:30 Ur Barbiturates Screen Not Detected (NotDetected) 04/07/19 18:30 U Tricyclic Antidepress Not Detected (NotDetected) 04/07/19 18:30 Ur Phencyclidine Scrn Not Detected (NotDetected) 04/07/19 18:30 Ur Amphetamines Screen Not Detected (NotDetected) 04/07/19 18:30 U Methamphetamines Scrn Not Detected (NotDetected) 04/07/19 18:30 U Benzodiazepines Scrn Not Detected (NotDetected) 04/07/19 18:30 Urine Cocaine Screen Not Detected (NotDetected) 04/07/19 18:30 U Marijuana (THC) Screen Detected (NotDetected) H 04/07/19 18:30 04/08/19 09:36 IDENTIFYING DATA: This patient is a 28-year-old single female who was admitted to the mental health unit on a petition and clinical certificate indicating acute symptoms of breanna with delusional thoughts. HPI: The patient presents with a petition completed by a [facility] social research assistant indicating "Kelly was seen by this worker on 04/06/2019. She informed this worker that she was having thoughts of suicide. She was rapid speech, impulse control issues. She wanted to see Dr. Hampton. Suspicious, delusional regarding conspiracy. Kelly stated her mother called the police on her. She broke into her mother's home and police were called. Kelly lost her medications within 12 hours. Believing someone stole it. [facility] psychiatrist was unable to meet with Kelly [id number] to inform her of her rights. Dr. Luke Hampton is requesting that Kelly be picked up and evaluated for her safety." The patient indicates she feels tired this morning. She reports feeling irritated and states that the petition is untrue. She reports that she never met with Brittni and that she did meet with Dr. Hampton. She states that she has had less sleep over the last several nights and quantifies approximate 4-5 hours a night. She states that her speech has been more rapid lately her energy has been increased. She states "so I have hypomanic episodes". She reports no thoughts of harming herself or others. She denies making any statements that were suicidal in nature. She reports no homicidal ideation. She is endorsing no current auditory or visual hallucinations. She is endorsing no specific delusions currently. She does have a history of bipolar disorder. She presents to the hospital 25 weeks . She has already been seen by her outpatient world travel counselor, Dr. Krishnan. PAST PSYCHIATRIC HISTORY: The patient has likely had close to 20 inpatient psychiatric admissions. This is her 10th admission since September 2014. Her last admission on this mental health unit was in January 2018. She works with Dr. Hampton and a therapist at [facility]. She states that she has been off of Abilify for the duration of her and the medication was just restarted 2 days ago. She indicates that she was on Abilify maintena in the past. Previously she has tried Depakote, Vistaril, Geodon, lithium, Tegretol, Lamictal and Latuda. She does have a history of 3 suicide attempts in the past 2 with overdoses and one with a wrist laceration. PMH: The patient is currently 25 weeks she does have a history of a premature delivery with her first child. History of right rotator cuff tear. She is on progesterone injections. ALLERGIES: Wellbutrin, Celexa, Cymbalta, Lexapro MEDICATIONS: vitamin CHEMICAL DEPENDENCY HISTORY: The patient has been using marijuana on a regular basis it is in her urine drug screen, she reports no use of alcohol or illicit drugs during the . She does have a history of alcohol binge drinking in her 20s she does have a remote history of using cocaine briefly FAMILY PSYCHIATRIC HISTORY: Her mother reportedly is known to have bipolar disorder, no reported suicides in the family FAMILY CHEMICAL DEPENDENCY HISTORY: "Addiction in the family" SOCIAL HISTORY: The patient is 28 years old she single not , she has a 1-year-old son who will turn to this [place]. The patient states her mother is currently caring for her son. The patient states that she purchase her own home and lives alone with her son. She is on a disability income. 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 She has 2 full siblings to half siblings. She resides in [facility]. Abuse history unknown. She states that she was convicted of filing a false police report alleging rape. MENTAL STATUS EXAM: The patient is a tall female who appears 25 weeks . She has a disheveled appearance hygiene is adequate. She reports feeling tired and frustrated. She is tired appearing and yawns throughout the session. She indicates she does not feel depressed. She reports no suicidal or homicidal ideation intent or plan. She denies having any thoughts of harming her son. Several times she reiterates her frustration that she is admitted to this mental health unit and does not believe she needs to be admitted. She is reporting no auditory or visual hallucinations she is endorsing no specific delusions. During our brief interaction there was no objective evidence of psychosis. She alleges that the petitioner fabricated the information on that document. The patient's insight into the reasons for admission appears to be impaired. She demonstrates no verbal or physical aggressiveness. She does have a mildly irritable affect that improves during the course of our discussion. She was redirectable. She demonstrates no repetitive involuntary movements. She is oriented to person place and date. She is able to name the days of the week backwards. STRENGTHS/WEAKNESSES: Strengths: Income, housing, [facility] support weaknesses: Marijuana use, recently off of mood stabilizer INTELLECTUAL FUNCTIONING: Average IMPRESSIONS: [] 1. Bipolar 1 disorder most recent manic rule out psychosis, cannabis use disorder 2. at 25 weeks' gestation, history of premature delivery PLAN: The patient has been admitted to the mental health unit on a petition and clinical certificate. We discussed her treatment plan which includes further observation on the mental health unit and use of Abilify. She indicates that she is willing to comply with the medication and participate in groups. She is asking to sign in voluntarily. Her Abilify will be continued 20 mg daily. She has already been seen by internal medicine and her outpatient world travel counselor and those reports were reviewed. Vital signs reviewed. Social work will meet with the patient to complete a psychosocial assessment and begin discharge planning. We will involve family/friends in treatment and discharge planning as she will allow. We discussed the importance of participating fully in the milieu for therapeutic and evaluation purposes.
[2019-04-08] MEDS ORDERED: HYDROXYPROGESTERONE CAPROATE IM SCH (10:00)
[2019-04-08] MEDS: ACETAMINOPHEN TAB 500 MG TAB PO PRN ×2 (10:37→16:21)
[2019-04-08 11:36] VITALS: BMI 21.2
[2019-04-08] MEDS: BENZOCAINE 20 % GEL 15 GM TUBE MM PRN ×2 (13:49→19:52)
[2019-04-08] MEDS ORDERED: hydrOXYzine PAMOATE 25 MG CAP PO STA (16:49)
[2019-04-08 18:22] LABS: Hemoglobin A1C 4.7 % (4.0-6.0)
[2019-04-09] MEDS: BENZOCAINE 20 % GEL 15 GM TUBE MM PRN ×3 (08:10→18:42)
[2019-04-09] MEDS: PRENATAL VIT-IRON-FOLIC ACID 1 EACH CAP PO SCH (08:10)
[2019-04-09] MEDS: ACETAMINOPHEN TAB 500 MG TAB PO PRN ×3 (08:25→20:14)
--- NOTE | 2019-04-09 08:53 | P.PN ---
Progress Note - Text Interval history: The patient is found in the hallway she follows me to an interview room. She indicates her mood is better. She states that she was able to rest yesterday and last night. Staff reported that she slept 6-7 hours last night. Appetite stable. She is reporting no physical complaints. She has been compliant with the Abilify. She has no questions or concerns regarding the medication. We are considering initiating the Abilify maintena. Mental status exam: The patient is alert she presents with adequate hygiene liza oming. She is dressed in a minion outfit. Speech is fluent spontaneous nonpressured. She indicates her mood is improving. She feels less tired. She demonstrates no pressured speech. Thought process is linear for the most part. She is mildly distractible. She is endorsing no auditory or visual hallucinations or any specific delusions. There is no observed evidence of psychosis. She demonstrates no verbal or physical aggressiveness. She demonstrates no repetitive involuntary movements. Insight and judgment improving. She is oriented to person place and date. Plan: The patient will continue on the Abilify as written. We will consider reinitiating the Abilify maintena. Vital signs reviewed. She appears to be clinically stabilizing. We will consider discharging her Friday if she demonstrates further improvement.
[2019-04-10] MEDS: BENZOCAINE 20 % GEL 15 GM TUBE MM PRN ×3 (00:33→12:08)
[2019-04-10] MEDS: ACETAMINOPHEN TAB 500 MG TAB PO PRN ×3 (07:04→18:43)
[2019-04-10] MEDS: PRENATAL VIT-IRON-FOLIC ACID 1 EACH CAP PO SCH (08:19)
[2019-04-10 09:52] LABS: Appearance,Urine Clear (Clear); Bilirubin,Urine Negative (Negative); Blood,Urine Negative (Negative); Color,Urine Yellow; Glucose,Urine (UA) Negative (Negative); Ketones,Urine Negative (Negative); Leukocyte Esterase,Urine Negative (Negative); Nitrite,Urine Negative (Negative); PH, Urine 6.5 (5.0-8.0); Protein,Urine Trace (Negative); Specific Gravity,Urine 1.024 (1.001-1.035); Urobilinogen,Urine <2.0 mg/dL (<2.0)
--- NOTE | 2019-04-10 12:49 | P.PN ---
Progress Note - Text Progress Note Date: 04/10/19 Interval history: Patient seen in [facility] [place] today. She reports that her mood is doing better and feels that her family meeting went well. She does feel that she'll be ready for discharge on Friday. She does not voice any adverse side effects with the Abilify. She does inquire regarding a order for Vistaril. We did discuss the issue of medication risk during , we will hold off on any new medication orders at this time. Mental status exam: She is alert and cooperative with the interview. Her speech is fluent, not rapid or pressured. Her thought processes are organized. Her mood seems to be stabilized. She does not verbalize any thoughts of harm to self or others. No active evidence of psychosis. She does describe some anxiety which seems to be manageable currently. Plan: Patient will be maintained on current psychotropic medication regimen. Continue to monitor for any medication side effects monitor her ongoing response. We'll continue to cover this patient through the weekend.
[2019-04-10 17:05] LABS: Urine Alcohol Negative (Negative); Urine Barbiturate Negative (Negative); Urine Cocaine Negative (Negative); Urine Methadone Negative (Negative); Urine Opiates Negative (Negative); Urine Phencyclidine Negative (Negative)
[2019-04-11] MEDS: ACETAMINOPHEN TAB 500 MG TAB PO PRN ×3 (05:42→21:37)
[2019-04-11 06:43] VITALS: RESP 18
[2019-04-11] MEDS: PRENATAL VIT-IRON-FOLIC ACID 1 EACH CAP PO SCH (08:40)
[2019-04-11] MEDS: BENZOCAINE 20 % GEL 15 GM TUBE MM PRN ×3 (08:58→18:44)
--- NOTE | 2019-04-11 12:48 | P.PN ---
Progress Note - Text Progress Note Date: 04/11/19 Interval history: Patient seen in [facility] today. She reports that she slept at least 8 hours last night. She seems to be eating well. She does feel she'll be ready for discharge home tomorrow she has questions regarding her diagnosis which we discussed. She is directed to talk further about some diagnosis questions with Dr. Collins. She does not voice any adverse psychotropic medication side effects, feels like the Abilify is doing well for her. She does inquire regarding Bentyl for IBS. Mental status exam: She is alert and cooperative with the interview. Her speech is fluent, not rapid or pressured. Thought processes are organized. Her mood appears to be stable. She denies any thoughts of harm to self or others. She denies any hallucinations. She does not make any delusional statements. Plan: Patient will be maintained on current psychotropic medication regimen. Continue to monitor for any medication side effects, possible discharge planning for tomorrow. Last medical to follow-up regarding her questions about Bentyl.
[2019-04-12] MEDS: ACETAMINOPHEN TAB 500 MG TAB PO PRN (06:36)
[2019-04-12 07:05] VITALS: BP 117/69; PULSE 74; TEMP 98.6
[2019-04-12] MEDS ORDERED: hydrOXYzine PAMOATE 25 MG CAP PO PRN (09:41)
--- NOTE | 2019-04-12 09:52 | P.DS ---
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 MANAGEMENT ON MHU Do you want consulting provider notified?: Yes 04/07/19 21:41 Consult Physician Routine Consulting Provider: [facility] Consult Reason/Comments: H & P w/medical management Do you want consulting provider notified?: Already Contacted Primary care physician: Abhay Tan - Discharge Diagnosis(es) (1) Severe manic bipolar 1 disorder with psychotic behavior Current Visit: Yes Status: Acute Priority: High (2) Cannabis use disorder, moderate, dependence Current Visit: Yes Status: Acute Priority: Medium Hospital Course: Brief summary of admission note: This patient is a 28-year-old single female who was admitted to the mental health unit on a petition and clinical certificate indicating acute symptoms of breanna with psychosis. Initially the patient was quite agitated that she was admitted to the mental health unit. She denied having any symptoms of breanna or psychosis. She states that she had been off of her Abilify due to her most recent . The medicine had just been started 1-2 days prior to this admission. She does have a known history of bipolar 1 disorder and has been admitted to this mental health unit several times in the past. For full details please refer to my psychiatric evaluation dated 04/08/2019. Summary of hospital course: The patient was admitted to the mental health unit voluntarily. She was willing to continue using the Abilify 20 mg. She requested to be put on the Abilify maintena. After some research we found that there is no increased risk in terms of using the injectable Depo form versus the oral medication. The patient verbalizes comfort with using the medication when reviewing risks and benefits. Clearly she becomes manic when not using a mood stabilizer. 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 Social work met with the patient to complete a psychosocial assessment conducted a support meeting and for discharge planning purposes. The patient was pleasant and cooperative during her admission she attended groups she was easily directable. She demonstrated no agitated behavior. She has stabilized and is demonstrating future oriented thinking. Mental status exam: The patient is a 28-year-old female appearing her stated age. She is dressed in her own clothing. Hygiene and grooming are adequate. Eye contact is appropriate speech is fluent spontaneous nonpressured. She reports no suicidal or homicidal ideation intent or plan. At no point did she ever express any desire to harm her son. She reports no auditory or visual hallucinations or any specific delusions. There is no observed evidence of psychosis currently. She demonstrates no tangential thinking loose associations or flight of ideas. She does not appear hypomanic or manic currently. Insight and judgment have improved. Affect is euthymic and appropriately expressive. S he is oriented to person place and date. She demonstrates no verbal or physical aggressiveness and demonstrates no involuntary repetitive movements. Impressions 1. Bipolar 1 disorder most recent manic with psychosis, cannabis use disorder 2. at 25 weeks' gestation, history of premature delivery Plan: The patient will be discharged mental health unit today to return home. She will continue working with [facility]. Social work will confirm her next appointment. The patient will be given an injection of Abilify maintena 300 mg monthly starting today. She will continue Abilify 15 mg daily orally for 14 days then discontinue the oral dose. She will be able to use Vistaril 25 mg up to daily as needed for anxiety. She is instructed to abstain from any use of alcohol marijuana or any illicit drugs as they can provoke mood and psychotic symptoms and ultimately elevate her safety risk. She does not wish to participate in inpatient chemical dependency treatment. There is no imminent safety risk she is appropriate for transition back to outpatient care. She is instructed to return to the hospital with any acute safety concerns. Patient Condition at Discharge: Stable Plan - Discharge Summary New Discharge Prescriptions: New ARIPiprazole [Abilify] 15 mg PO DAILY #14 tab ARIPiprazole IM [Abilify Maintena] 300 mg IM ONCE #1 vial Njk-Riky-Vquap Acid [-U Capsule (formulary)] 1 each PO DAILY cap hydrOXYzine PAMOATE [Vistaril] 25 mg PO DAILY PRN #30 cap PRN Reason: Anxiety Continue Hydroxyprogesterone Caproate 250mg/1ml 250 mg IM Q7D Discontinued ARIPiprazole [Abilify] 20 mg PO DAILY Discharge Medication List Hydroxyprogesterone Caproate 250mg/1ml 250 mg IM Q7D 04/07/19 [History] ARIPiprazole IM [Abilify Maintena] 300 mg IM ONCE #1 vial 04/12/19 [Rx] ARIPiprazole [Abilify] 15 mg PO DAILY #14 tab 04/12/19 [Rx] [id number]-Xgqw-[id number] Acid [-U Capsule (formulary)] 1 each PO DAILY cap 04/12/19 [Rx] hydrOXYzine PAMOATE [Vistaril] 25 mg PO DAILY PRN #30 cap 04/12/19 [Rx] Follow up Appointment(s)/Referral(s): [facility] [Outside] - 04/13/19 4:00 pm (Dr Hampton 04/13/19 @ 1600 ) Abhay Tan MD [Primary Care Provider] - 1-2 days Activity/Diet/Wound Care/Special Instructions: Activity and diet as tolerated. No guns or weapons in the home. Refrain from all drugs and alcohol not prescribed by physician. Take all medications as prescribed. Attend all follow up appointments as scheduled. If in need of medication refills, please go to your primary care physician, or go to your out patient psychiatric provider. If in crisis, please call , or go the nearest ER.
[2019-04-12] MEDS ORDERED: ARIPiprazole IM 400 MG VIAL (NO COST) IM ONE (10:00)
[2019-04-12] MEDS: PRENATAL VIT-IRON-FOLIC ACID 1 EACH CAP PO SCH (10:48)
[2019-04-13] MEDS ORDERED: ARIPiprazole 15 MG TAB PO SCH (09:00)
== END 2019-04-12 11:04 | disposition home or self-care (01) | DRG 885 ==
LOC: EC 16:48 → 3MHU 19:56
PROVIDERS: ADMIT Psychiatry & Neurology Psychiatry; ATTEND Psychiatry & Neurology Psychiatry
DX: F31.2 Bipolar disorder, current episode manic severe with psychotic features (principal); O99.322 Drug use complicating pregnancy, second trimester; R45.851 Suicidal ideations; O99.342 Other mental disorders complicating pregnancy, second trimester; F12.99 Cannabis use, unspecified with unspecified cannabis-induced disorder; F17.200 Nicotine dependence, unspecified, uncomplicated; F43.10 Post-traumatic stress disorder, unspecified; I73.00 Raynaud's syndrome without gangrene; O99.332 Smoking (tobacco) complicating pregnancy, second trimester; Z3A.25 25 weeks gestation of pregnancy; Z79.899 Other long term (current) drug therapy; Z82.49 Family history of ischemic heart disease and other diseases of the circulatory system; Z82.5 Family history of asthma and other chronic lower respiratory diseases; Z83.3 Family history of diabetes mellitus; Z91.5 Personal history of self-harm; Z88.8 Allergy status to other drugs, medicaments and biological substances; Z90.49 Acquired absence of other specified parts of digestive tract
CPT/HCPCS: 80053; 80061; 80306; 81003; 82075; 82248; 83036; 84443; 85025; 99285

== ENCOUNTER 2019-04-18 00:55 | Outpatient (CLI) | payer MEDICARE, MEDICAID ==
[2019-04-18] MEDS ORDERED: MAGNESIUM SULFATE-WATER PMX 4 GM in WATER FOR INJECTION 1 100ML.BAG IVPB ONE (01:43)
[2019-04-18] MEDS ORDERED: CALCIUM GLUCONATE 1 GM/10 ML VIAL IV PRN (01:43)
[2019-04-18] MEDS ORDERED: BETAMET ACET-BETAMETH SOD PHOS 6 MG/ML VIAL IM SCH (01:45)
[2019-04-18] MEDS ORDERED: LACTATED RINGERS 1,000 ML IV SCH (01:45)
[2019-04-18] MEDS ORDERED: MAGNESIUM SULFATE-WATER PMX 20 GM in WATER FOR INJECTION 1 500ML.BAG IV SCH (01:45)
[2019-04-18] MEDS ORDERED: AMPICILLIN 2,000 MG in SODIUM CHLORIDE 0.9% 100 ML IVPB STA (01:45)
--- NOTE | 2019-04-18 02:28 | P.HPOB ---
History of Present Illness H&P Date: 04/18/19 Chief Complaint: PROM 28-year-old G2 to P1 presents at 27 weeks and 2 days with spontaneous rupture membranes since midnight on 04/18/2019. She is not lillian, heart tones are 130s with moderate variability and reactive. She has a history of delivery with her first at 32 weeks and has been getting progesterone injections weekly for this. She has seen maternal medicine only for the delivery but also for history of tobacco exposure. She had a normal anatomy ultrasound and normal echo. Today ultrasound showed that the baby is vertex, 2 lbs. 4 oz., fluid level is 9.7 cm. Review of Systems All systems: negative Constitutional: Denies chills, Denies fever Eyes: denies blurred vision, denies pain Ears, nose, mouth and throat: Denies headache, Denies sore throat Cardiovascular: Denies chest pain, Denies shortness of breath Respiratory: Denies cough Gastrointestinal: Denies abdominal pain, Denies diarrhea, Denies nausea, Denies vomiting Genitourinary: Denies dysuria, Denies hematuria Musculoskeletal: Denies myalgias Integumentary: Denies pruritus, Denies rash Neurological: Denies numbness, Denies weakness Psychiatric: Denies anxiety, Denies depression Endocrine: Denies fatigue, Denies weight change Past Medical History Past Medical History: No Reported History Additional Past Medical History / Comment(s): Gilbert's syndrome, Raynaud syndrome, IBS. Obstetric history: First was a vaginal delivery at 32 weeks. This is her second . She's had care with me since the first trimester. Blood type B positive, amylase negative, rubella low immune, RPR nonreactive, hepatitis B negative, HIV nonreactive. She did see maternal medicine due to history of Depakote exposure and history of deliveries. She was found progesterone injections weekly. Anatomy ultrasound and echo were normal. History of Any Multi-Drug Resistant Organisms: None Reported Past Surgical History: Cholecystectomy, Orthopedic Surgery Additional Past Surgical History / Comment(s): Left ring finger surgery; leep procedure Past Anesthesia/Blood Transfusion Reactions: No Reported Reaction Past Psychological History: Bipolar Smoking Status: Current every day smoker - Past Family History Father Family Medical History: COPD, Coronary Artery Disease (CAD) Additional Family Medical History / Comment(s): Father is alive with history of CAD and COPD Mother Family Medical History: Diabetes Mellitus, Hypertension Additional Family Medical History / Comment(s): Mother is alive with history of DM and HTN. Brother(s) Additional Family Medical History / Comment(s): Patient has 5 siblings with no major medical problems. Medications and Allergies Home Medications Medication Instructions Recorded Confirmed Type Hydroxyprogesterone Caproate 250 mg IM Q7D 04/07/19 04/18/19 History 250mg/1ml ARIPiprazole IM [Abilify Maintena] 300 mg IM ONCE #1 vial 04/12/19 04/18/19 Rx ARIPiprazole [Abilify] 15 mg PO DAILY #14 tab 04/12/19 04/18/19 Rx Dyl-Kwez-Trnrg Acid 1 each PO DAILY cap 04/12/19 04/18/19 Rx [-U Capsule (formulary)] hydrOXYzine PAMOATE [Vistaril] 25 mg PO DAILY PRN #30 cap 04/12/19 04/18/19 Rx Allergies Allergy/AdvReac Type Severity Reaction Status Date / Time bupropion HCl Allergy Rash/Hives Verified 04/18/19 01:15 [From Wellbutrin] citalopram hydrobromide AdvReac manic Verified 04/18/19 01:15 [From Celexa] duloxetine HCl AdvReac manic Verified 04/18/19 01:15 [From Cymbalta] escitalopram oxalate AdvReac manic Verified 04/18/19 01:15 [From Lexapro] Exam Osteopathic Statement: *. No significant issues noted on an osteopathic structural exam other than those noted in the History and Physical/Consult. Intake and Output 04/17/19 04/17/19 04/18/19 14:59 22:59 06:59 Other: Weight 71.668 kg Heart: Regular rate and rhythm Lungs: Clear to auscultation bilaterally Abdomen: Soft, nontender Extremities: Negative Homans sign Assessment and Plan (1) Bipolar 1 disorder Current Visit: No Status: Acute Priority: High Code(s): F31.9 - BIPOLAR DISORDER, UNSPECIFIED SNOMED Code(s): 230287207 (2) 27 weeks gestation of Current Visit: Yes Status: Acute Code(s): Z3A.27 - 27 WEEKS GESTATION OF SNOMED Code(s): 27162310 (3) Premature rupture of membranes Current Visit: Yes Status: Acute Code(s): O42.90 - GUILLERMO ROM, 7TH0 BETW RUPT & ONST LABR, UNSP WEEKS OF GEST SNOMED Code(s): 99164968 Plan: 1. Patient given one dose of Celestone 2. IV antibiotics to prolong latent phase 3. Magnesium sulfate for brain sparing in a 4. Transfer to tertiary facility that is able to care for a infant: [facility].
--- NOTE | 2019-04-18 02:41 | US ---
EXAMINATION TYPE: US OB >= 14 wk fetus DATE OF EXAM: 04/18/2019 COMPARISON: US 2018 CLINICAL HISTORY: Bleeding TECHNIQUE: Transabdominal (TA) GESTATIONAL AGE / DATING Physician Established: (27 weeks/2 days) EDC: 07/16/2019 Dates by LMP: (27 weeks/2 days) EDC: 07/16/2019 Dates by First Scan: (27 weeks/4 days) EDC: 07/14/2019 Dates by Current Scan: (27 weeks/1 days) EDC: 07/17/2019 SURVEY IUP: Single PLACENTA: Posterior - multiple hypoechoic areas with largest measuring 1. 7cm, likely venous lakes. PREVIA: No Previa CA: 9.7 cm Lower end of normal CERVICAL LENGTH (transabdominal: norm > 3.0cm): 3.1 cm BIOMETRY PRESENTATION: Vertex BPD: 6.9 cm 27 weeks / 6 days HC: 25.3 cm 27 weeks / 4 days AC: 21.8 cm 26 weeks / 2 days FL: 5.2 cm 27 weeks / 6 days ESTIMATED WEIGHT IN GRAMS: 1016 grams ESTIMATED WEIGHT IN LBS/OZ: 2 lbs. 4 oz. WEIGHT PERCENTAGE BASED ON ESTABLISHED DATES: 28% HC/AC: 1.16 Normal FL/AC: 23.97 Normal HEART RATE: 141 bpm RHYTHM: Normal IMPRESSION: Single live IUP with an estimated gestational age 27 weeks and 1 day.
--- NOTE | 2019-04-18 16:01 | P.MSEPDOC ---
Presenting Problems - Arrival Data Date of Arrival on Unit: 04/18/19 Time of Arrival on Unit: 00:55 Mode of Transport: Portable Physician Notification (Pre) - Notification Comment Comment: Not done, Dr. Eulogio odell h&p, pt transfered Disposition - Disposition OB Disposition: Transfer to other dept./facility I agree with the RN Medical Screening Exam: Yes Physician's MSE Comment: please see my dictated H&P/transer note Risk & Benefit of care provided described in d/c instruction: Yes Diagnosis: GUILLERMO ROM, ONSET LABOR > 24 HR FOL RUPT, UNSP WEEKS OF GEST
== END 2019-04-18 02:55 ==
LOC: FBPOP 00:55
PROVIDERS: ATTEND Obstetrics & Gynecology
DX: O42.112 Preterm premature rupture of membranes, onset of labor more than 24 hours following rupture, second trimester (principal); O99.342 Other mental disorders complicating pregnancy, second trimester; O99.332 Smoking (tobacco) complicating pregnancy, second trimester; F31.9 Bipolar disorder, unspecified; F17.200 Nicotine dependence, unspecified, uncomplicated; Z3A.27 27 weeks gestation of pregnancy
CPT/HCPCS: 96361; 96365; 96366; 96372; 84112; 76805; G0463; J0702; J3475 ×2; J0290; 96367; 99215

== ENCOUNTER 2019-06-13 05:20 | Inpatient (IN) | payer MEDICARE, OTHER ==
[2019-06-13] MEDS ORDERED: TERBUTALINE 1 MG/ML VIAL SQ PRN (05:26)
[2019-06-13] MEDS ORDERED: OXYTOCIN 10 UNIT/ML 1 ML VIAL IM PRN (05:26)
[2019-06-13] MEDS ORDERED: LIDOCAINE 0.5% (PF) 5 MG/ML (50 ML SDV) SQ PRN (05:26)
[2019-06-13] MEDS ORDERED: METHYLERGONOVINE 0.2 MG/ML 1 ML AMP IM PRN (05:26)
[2019-06-13] MEDS ORDERED: CARBOPROST TROMETHAMINE 250 MCG/ML 1 ML AMP IM PRN (05:26)
[2019-06-13] MEDS ORDERED: LACTATED RINGERS 1,000 ML IV SCH (05:30)
[2019-06-13] MEDS ORDERED: ACETAMINOPHEN TAB 325 MG TAB PO PRN (05:40)
[2019-06-13] MEDS ORDERED: ZOLPIDEM 5 MG TAB PO PRN (05:40)
[2019-06-13] MEDS ORDERED: WITCH HAZEL 1 EACH MED..PAD TOPICAL PRN (05:40)
[2019-06-13] MEDS ORDERED: LANOLIN CREAM 5 GM TUBE TOPICAL PRN (05:40)
[2019-06-13] MEDS ORDERED: BENZOCAINE/MENTHOL SPRAY 1 GM/SPRAY AEROSOL TOPICAL PRN (05:40)
[2019-06-13] MEDS ORDERED: SIMETHICONE 80 MG CHEWABLE PO PRN (05:40)
[2019-06-13] MEDS ORDERED: diphenhydrAMINE 25 MG CAP PO PRN (05:40)
[2019-06-13] MEDS ORDERED: IBUPROFEN 600 MG TAB PO PRN (05:40)
[2019-06-13] MEDS ORDERED: diphenhydrAMINE 50 MG CAP PO PRN (05:40)
[2019-06-13] MEDS ORDERED: diphenhydrAMINE 50 MG/ML 1 ML VIAL IVP PRN ×2 (05:40)
[2019-06-13] MEDS ORDERED: HYDROCORTISONE 2.5% RECTAL CREAM 30 GM TUBE RECTAL PRN (05:40)
[2019-06-13 05:42] VITALS: RESP 16; BMI 23.0
[2019-06-13] MEDS ORDERED: OXYTOCIN 20 UNITS/1000 ML NS 1,000 ML IV SCH (05:45)
--- NOTE | 2019-06-13 05:46 | P.HPOB ---
History of Present Illness H&P Date: 06/13/19 Chief Complaint: Intrauterine 35 weeks active labor Kelly is a 28-year-old at 35 weeks gestation who arrives dilated to complete by EMS. Her course has been, complicated by spontaneous rupture membranes in April of this year she was seen and evaluated and stayed at [facility] for approximately 2 weeks stabilization and discharge. This evening she relates that she began having contractions a few hours ago and on arriving to labor and delivery she had spontaneous rupture membranes. She has been seen Dr. Krishnan throughout the and this was co-coordinated with maternal medicine. She has a significant psychiatric history including bipolar and depression as well as PTSD. She is completely dilated and effaced with the baby at approximately +1 station when I arrived to see her. She rapidly progressed. Pertinent labs B+ blood type, Rh antibody was negative, rubella was immune, hepatitis B surface antigen and RPR and HIV were all negative. GBS is not done yet. On physical exam vital signs are stable and afebrile. Heart regular, lungs clear, extremities without pain. Abdomen is soft gravid uterus is noted she is measuring small for dates despite gross visualization. Difficult to rate heart tones as with contractions and pushing the baby's heart tones were having decelerations from baseline of 122 what I believe was the 60s but we're having difficult time tracing as we were trying to get her organized and she was in triage with an external monitor. Assessment intrauterine 35 weeks. Plan expect spontaneous vaginal delivery. She did receive steroids at [facility] and again has been followed closely for her history of labor as well as for her rupture membranes in April of this year. Past Medical History Past Medical History: No Reported History Additional Past Medical History / Comment(s): Gilbert's syndrome, Raynaud syndrome, IBS. Obstetric history: First was a vaginal delivery at 32 weeks. This is her second . She's had care with me since the first trimester. Blood type B positive, amylase negative, rubella low immune, RPR nonreactive, hepatitis B negative, HIV nonreactive. She did see maternal medicine due to history of Depakote exposure and history of deliveries. She was found progesterone injections weekly. Anatomy ultrasound and echo were normal. History of Any Multi-Drug Resistant Organisms: None Reported Past Surgical History: Cholecystectomy, Orthopedic Surgery Additional Past Surgical History / Comment(s): Left ring finger surgery; leep procedure Past Anesthesia/Blood Transfusion Reactions: No Reported Reaction Past Psychological History: Bipolar Smoking Status: Current every day smoker - Past Family History Father Family Medical History: COPD, Coronary Artery Disease (CAD) Additional Family Medical History / Comment(s): Father is alive with history of CAD and COPD Mother Family Medical History: Diabetes Mellitus, Hypertension Additional Family Medical History / Comment(s): Mother is alive with history of DM and HTN. Brother(s) Additional Family Medical History / Comment(s): Patient has 5 siblings with no major medical problems. Medications and Allergies Home Medications Medication Instructions Recorded Confirmed Type Hydroxyprogesterone Caproate 250 mg IM Q7D 04/07/19 04/18/19 History 250mg/1ml ARIPiprazole IM [Abilify Maintena] 300 mg IM ONCE #1 vial 04/12/19 06/13/19 Rx ARIPiprazole [Abilify] 15 mg PO DAILY #14 tab 04/12/19 06/13/19 Rx Cke-Hauw-Vxhey Acid 1 each PO DAILY cap 04/12/19 06/13/19 Rx [-U Capsule (formulary)] hydrOXYzine PAMOATE [Vistaril] 25 mg PO DAILY PRN #30 cap 04/12/19 06/13/19 Rx Allergies Allergy/AdvReac Type Severity Reaction Status Date / Time bupropion HCl Allergy Rash/Hives Verified 06/13/19 05:23 [From Wellbutrin] citalopram hydrobromide AdvReac manic Verified 06/13/19 05:23 [From Celexa] duloxetine HCl AdvReac manic Verified 06/13/19 05:23 [From Cymbalta] escitalopram oxalate AdvReac manic Verified 06/13/19 05:23 [From Lexapro] Exam Osteopathic Statement: *. No significant issues noted on an osteopathic structural exam other than those noted in the History and Physical/Consult. Intake and Output 06/12/19 06/12/19 06/13/19 14:59 22:59 06:59 Other: Weight 74.843 kg
--- NOTE | 2019-06-13 05:47 | P.PROBDLV ---
Vaginal Delivery Note - . Vaginal Delivery Note: Kelly dilated to complete and pushing with precipitous delivery of a viable male over an intact perineum. Falling deliver the head with very cautious delivery and protection of the baby to keep it from rapidly delivering due to prematurity once baby was delivered from straight OA position anterior posterior shoulders were easily delivered. A was then mouth and nares bulb suctioned and the umbilical cord was allowed to pulsate for 30 seconds prior to clamping and cutting. Placenta was then delivered intact Pitocin was added to the IV. Nursery personnel from special care nursery present to assume care. Mother and baby currently appear stable following delivery of the baby is in special care nursery. scores and weight are both pending.
[2019-06-13 07:01] LABS: Basophils % (A) 0 %; Eosinophils # (A) 0.1 k/uL (0-0.7); Eosinophils % (A) 1 %; HCT 36.5 % (34.0-46.0); HGB 12.1 gm/dL (11.4-16.0); Lymphocytes % (A) 10 %; MCH 30.5 pg (25.0-35.0); MCHC 33.3 g/dL (31.0-37.0); MCV 91.6 fL (80.0-100.0); Mean Platelet Volume 7.6; Monocytes # (A) 0.5 k/uL (0-1.0); Monocytes % (A) 3 %; Neutrophils # (A) 17.4 k/uL (1.3-7.7); Neutrophils % (A) 86 %; Platelet Count 144 k/uL (150-450); RBC 3.98 m/uL (3.80-5.40); RDW 12.4 % (11.5-15.5); WBC 20.2 k/uL (3.8-10.6)
[2019-06-13] MEDS ORDERED: SENNOSIDES-DOCUSATE SODIUM 1 EACH TAB PO SCH (08:00)
[2019-06-13 08:02] LABS: Amphetamine Screen,Urine Not Detected (NotDetected); Barbiturate Screen,Urine Not Detected (NotDetected); Benzodiazepines Screen,Urine Not Detected (NotDetected); Cocaine Screen,Urine Not Detected (NotDetected); Methadone Screen, Urine Not Detected (NotDetected); Opiate Screen,Urine Not Detected (NotDetected); Oxycodone Screen, Urine Not Detected (NotDetected); Phencyclidine Screen,Urine Not Detected (NotDetected); Tricyclic Antidepressant,Urine Not Detected (NotDetected); Urn Cannabinoid Scrn Not Detected (NotDetected)
[2019-06-13] MEDS ORDERED: ARIPiprazole 15 MG TAB PO SCH (09:00)
--- NOTE | 2019-06-13 10:48 | P.DS ---
Providers Date of admission: 06/13/19 05:22 Expected date of discharge: 06/13/19 Attending physician: Marlen Krishnan Primary care physician: Stated None Hospital Course: Kelly is doing very well day 0. She has no consistent care for child at home and would like to be discharged home since the baby is going to be in [facility] care nursery anyway. We'll plan discharged home this afternoon assuming her vital signs and bleeding remained stable. Currently her vital signs are stable and she is afebrile. There are no other changes from earlier this morning and will plan discharged home after at least 8 hours of monitoring. All the questions were answered for her discharge instructions were thoroughly reviewed. She will follow up with Dr. Krishnan in 6 weeks. Patient Condition at Discharge: Good Plan - Discharge Summary New Discharge Prescriptions: No Action Hydroxyprogesterone Caproate 250mg/1ml 250 mg IM Q7D ARIPiprazole [Abilify] 15 mg PO DAILY #14 tab ARIPiprazole IM [Abilify Maintena] 300 mg IM ONCE #1 vial [id number]-[id number] Acid [-U Capsule (formulary)] 1 each PO DAILY cap hydrOXYzine PAMOATE [Vistaril] 25 mg PO DAILY PRN #30 cap PRN Reason: Anxiety Discharge Medication List Hydroxyprogesterone Caproate 250mg/1ml 250 mg IM Q7D 04/07/19 [History] ARIPiprazole IM [Abilify Maintena] 300 mg IM ONCE #1 vial 04/12/19 [Rx] ARIPiprazole [Abilify] 15 mg PO DAILY #14 tab 04/12/19 [Rx] [id number] Acid [-U Capsule (formulary)] 1 each PO DAILY cap 04/12/19 [Rx] hydrOXYzine PAMOATE [Vistaril] 25 mg PO DAILY PRN #30 cap 04/12/19 [Rx] Follow up Appointment(s)/Referral(s): Marlen Krishnan DO [Doctor of Osteopathic Medicine] - 6 Weeks Activity/Diet/Wound Care/Special Instructions: No heavy lifting, limit stairs and driving, and pelvic rest. If any high temperatures, heavy bleeding, or severe pain call the office Discharge Disposition: HOME SELF-CARE
[2019-06-13 13:06] VITALS: BP 111/62; PULSE 65; TEMP 97.8
== END 2019-06-13 13:29 | disposition home or self-care (01) | DRG 807 ==
LOC: FBPOP 05:20 → 4FBP 05:22
PROVIDERS: ADMIT Obstetrics & Gynecology; ATTEND Obstetrics & Gynecology
PROC: 10E0XZZ Delivery of Products of Conception, External Approach (ICD-10-PCS; principal; 2019-06-13)
DX: O60.14X0 Preterm labor third trimester with preterm delivery third trimester, not applicable or unspecified (principal); Z37.0 Single live birth; O62.3 Precipitate labor; Z3A.35 35 weeks gestation of pregnancy; F17.200 Nicotine dependence, unspecified, uncomplicated; O99.334 Smoking (tobacco) complicating childbirth; O36.5930 Maternal care for other known or suspected poor fetal growth, third trimester, not applicable or unspecified; O76 Abnormality in fetal heart rate and rhythm complicating labor and delivery; O99.344 Other mental disorders complicating childbirth; F31.9 Bipolar disorder, unspecified; F43.10 Post-traumatic stress disorder, unspecified; Z79.899 Other long term (current) drug therapy; Z82.49 Family history of ischemic heart disease and other diseases of the circulatory system; Z82.5 Family history of asthma and other chronic lower respiratory diseases; Z83.3 Family history of diabetes mellitus; Z88.8 Allergy status to other drugs, medicaments and biological substances
CPT/HCPCS: 80306; 85025; 86850; 86900; 86901; 88307

== ENCOUNTER 2020-04-25 12:28 | Inpatient (IN) | payer MEDICARE, MEDICAID ==
--- NOTE | 2020-04-25 12:50 | ED ---
General Adult HPI - General Chief complaint: Psychiatric Symptoms Stated complaint: petitioned Time Seen by Provider: 04/25/20 12:31 Source: patient, RN notes reviewed, old records reviewed Mode of arrival: ambulatory Limitations: no limitations - History of Present Illness Initial comments: 29-year-old female presents under court order petitioned. Patient has been petitioned with concerns for suicidal thoughts and suicidal behavior. Patient herself denies any suicidal thoughts or plan. She is uncertain exactly why she has been petitioned. She states she's been compliant with her medications. Patient denies any new physical complaints. She is compliant with history and physical exam. - Related Data Home Medications Medication Instructions Recorded Confirmed ARIPiprazole IM [Abilify Maintena] 400 mg IM Q28D 04/25/20 04/25/20 Divalproex ER [Depakote ER] 500 mg PO BID 04/25/20 04/25/20 Loratadine [Claritin] 10 mg PO DAILY 04/25/20 04/25/20 Norgestimate-Ethinyl Estradiol 1 tab PO DAILY 04/25/20 04/25/20 [Sprintec 28 Day Tablet] Previous Rx's Medication Instructions Recorded ARIPiprazole [Abilify] 15 mg PO DAILY #14 tab 04/12/19 Allergies Allergy/AdvReac Type Severity Reaction Status Date / Time bupropion HCl Allergy Rash/Hives Verified 04/25/20 13:25 [From Wellbutrin] vortioxetine Allergy Unknown Verified 04/25/20 13:25 [From Trintellix] citalopram hydrobromide AdvReac manic Verified 04/25/20 13:25 [From Celexa] duloxetine HCl AdvReac manic Verified 04/25/20 13:25 [From Cymbalta] escitalopram oxalate AdvReac manic Verified 04/25/20 13:25 [From Lexapro] Review of Systems ROS Statement: Those systems with pertinent positive or pertinent negative responses have been documented in the HPI. ROS Other: All systems not noted in ROS Statement are negative. Past Medical History Past Medical History: Hypertension Additional Past Medical History / Comment(s): Gilbert's syndrome, Raynaud syndrome, IBS. Obstetric history: First was a vaginal delivery at 32 weeks. This is her second . She's had care with me since the first trimester. Blood type B positive, amylase negative, rubella low immune, RPR nonreactive, hepatitis B negative, HIV nonreactive. She did see maternal medicine due to history of Depakote exposure and history of deliveries. She was found progesterone injections weekly. Anatomy ultrasound and echo were normal. History of Any Multi-Drug Resistant Organisms: None Reported Past Surgical History: Cholecystectomy, Orthopedic Surgery Additional Past Surgical History / Comment(s): Left ring finger surgery; leep procedure Past Anesthesia/Blood Transfusion Reactions: No Reported Reaction Past Psychological History: Anxiety, Bipolar Smoking Status: Current every day smoker Past Alcohol Use History: None Reported Past Drug Use History: Marijuana - Past Family History Father Family Medical History: COPD, Coronary Artery Disease (CAD) Additional Family Medical History / Comment(s): Father is alive with history of CAD and COPD Mother Family Medical History: Diabetes Mellitus, Hypertension Additional Family Medical History / Comment(s): Mother is alive with history of DM and HTN. Brother(s) Additional Family Medical History / Comment(s): Patient has 5 siblings with no major medical problems. General Exam Limitations: no limitations General appearance: alert, in no apparent distress Head exam: Present: atraumatic, normocephalic Eye exam: Present: normal appearance, PERRL ENT exam: Present: normal exam Neck exam: Present: normal inspection. Absent: tenderness, meningismus Respiratory exam: Present: normal lung sounds bilaterally. Absent: respiratory distress, wheezes, rales Cardiovascular Exam: Present: regular rate, normal rhythm GI/Abdominal exam: Present: soft. Absent: distended, tenderness, guarding, rebound Extremities exam: Present: normal inspection, normal capillary refill. Absent: pedal edema Neurological exam: Present: alert, oriented X3 Psychiatric exam: Present: normal affect, normal mood. Absent: suicidal ideation Skin exam: Present: warm, dry, intact. Absent: cyanosis, diaphoretic Course Vital Signs 04/25/20 04/25/20 12:30 13:44 Temperature 98.4 F Pulse Rate 104 H 82 Respiratory 18 16 Rate Blood Pressure 145/92 132/78 O2 Sat by Pulse 100 98 Oximetry - Reevaluation(s) Reevaluation #1: 04/25/20 12:50 Patient medically cleared awaiting EPS evaluation Medical Decision Making - Medical Decision Making Patient evaluated by EPS, will be admitted for further psychiatric evaluation and treatment. - Lab Data Lab Results 04/25/20 Range/Units 12:35 Urine Opiates Screen Not Detected (NotDetected) Ur Oxycodone Screen Not Detected (NotDetected) Urine Methadone Screen Not Detected (NotDetected) Ur Propoxyphene Screen Not Detected (NotDetected) Ur Barbiturates Screen Not Detected (NotDetected) U Tricyclic Antidepress Not Detected (NotDetected) Ur Phencyclidine Scrn Not Detected (NotDetected) Ur Amphetamines Screen Not Detected (NotDetected) U Methamphetamines Scrn Not Detected (NotDetected) U Benzodiazepines Scrn Not Detected (NotDetected) Urine Cocaine Screen Not Detected (NotDetected) U Marijuana (THC) Screen Detected H (NotDetected) Disposition Clinical Impression: Depression, Bipolar disorder Disposition: ADMITTED IP TO THIS [facility] Condition: Stable Is patient prescribed a controlled substance at d/c from ED?: No Referrals: None,Stated [REFERRING] - 1-2 days Decision to Admit Reason: Admit from EC Decision Date: 04/25/20 Decision Time: 13:57
[2020-04-25 13:14] LABS: Amphetamine Screen,Urine Not Detected (NotDetected); Barbiturate Screen,Urine Not Detected (NotDetected); Benzodiazepines Screen,Urine Not Detected (NotDetected); Cocaine Screen,Urine Not Detected (NotDetected); Methadone Screen, Urine Not Detected (NotDetected); Opiate Screen,Urine Not Detected (NotDetected); Oxycodone Screen, Urine Not Detected (NotDetected); Phencyclidine Screen,Urine Not Detected (NotDetected); Tricyclic Antidepressant,Urine Not Detected (NotDetected); Urn Cannabinoid Scrn Detected (NotDetected)
[2020-04-25] MEDS ORDERED: LORazepam 1 MG TAB PO STA (13:56)
[2020-04-25] MEDS ORDERED: NICOTINE 21MG/24HR PATCH TRANSDERM STA (14:14)
[2020-04-25] MEDS ORDERED: ZIPRASIDONE 20 MG VIAL IM PRN (15:40)
[2020-04-25] MEDS ORDERED: MAG HYDROX/AL HYDROX/SIMETH 30 ML CUP PO PRN (15:40)
[2020-04-25] MEDS ORDERED: MAGNESIUM HYDROXIDE 2,400 MG/10 ML CUP PO PRN (15:40)
[2020-04-25] MEDS ORDERED: LORazepam 2 MG/ML INJ IM PRN (15:42)
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
[2020-04-25] MEDS: ACETAMINOPHEN TAB 325 MG TAB PO PRN (19:12)
[2020-04-25] MEDS: LORazepam 0.5 MG TAB PO PRN (19:13)
[2020-04-25] MEDS: DIVALPROEX ER 500 MG TAB.ER.24H PO SCH (20:50)
[2020-04-26] MEDS: ACETAMINOPHEN TAB 325 MG TAB PO PRN ×2 (06:43→14:51)
[2020-04-26] MEDS: NICOTINE 14MG/24HR PATCH TRANSDERM SCH (08:13)
[2020-04-26] MEDS: DIVALPROEX ER 500 MG TAB.ER.24H PO SCH ×2 (08:13→20:54)
[2020-04-26] MEDS: LORATADINE 10 MG TAB PO SCH (08:13)
[2020-04-26] MEDS: LORazepam 0.5 MG TAB PO PRN ×2 (08:13→17:47)
[2020-04-26 09:04] LABS: Basophils # (A) 0.1 k/uL (0-0.2); Basophils % (A) 1 %; Eosinophils # (A) 0.2 k/uL (0-0.7); Eosinophils % (A) 2 %; HCT 43.8 % (34.0-46.0); HGB 13.8 gm/dL (11.4-16.0); Lymphocytes # (A) 3.1 k/uL (1.0-4.8); Lymphocytes % (A) 32 %; MCH 28.6 pg (25.0-35.0); MCHC 31.4 g/dL (31.0-37.0); MCV 91.2 fL (80.0-100.0); Mean Platelet Volume 8.7; Monocytes # (A) 0.4 k/uL (0-1.0); Monocytes % (A) 4 %; Neutrophils # (A) 5.9 k/uL (1.3-7.7); Neutrophils % (A) 61 %; Platelet Count 164 k/uL (150-450); RDW 12.5 % (11.5-15.5); WBC 9.7 k/uL (3.8-10.6)
[2020-04-26] MEDS: SPRINTEC-28 PO SCH (09:10)
[2020-04-26 09:22] LABS: ALT 12 U/L (4-34); AST 18 U/L (14-36); African American GFR (CKD) >90 (>60 ml/min/1.73 sqM); Albumin 3.7 g/dL (3.5-5.0); Alkaline Phosphatase 85 U/L (38-126); Anion Gap 5 mmol/L; Blood Urea Nitrogen 10 mg/dL (7-17); Calcium 8.8 mg/dL (8.4-10.2); Carbon Dioxide 28 mmol/L (22-30); Chloride 105 mmol/L (98-107); Cholesterol 130 mg/dL (<200); Glucose 87 mg/dL (74-99); HDL Cholesterol 45 mg/dL (40-60); LDL Cholesterol,Calculated 59 mg/dL (0-99); Non-African American GFR(CKD) >90 (>60 ml/min/1.73 sqM); Sodium 138 mmol/L (137-145); Total Bilirubin 1.2 mg/dL (0.2-1.3); Total Protein 6.4 g/dL (6.3-8.2); Triglycerides 132 mg/dL (<150)
--- NOTE | 2020-04-26 09:51 | P.HP ---
Psychiatric H&P - . History & Physical: Allergies Allergy/AdvReac Type Severity Reaction Status Date / Time bupropion HCl Allergy Rash/Hives Verified 04/25/20 13:25 [From Wellbutrin] vortioxetine Allergy Unknown Verified 04/25/20 13:25 [From Trintellix] citalopram hydrobromide AdvReac manic Verified 04/25/20 13:25 [From Celexa] duloxetine HCl AdvReac manic Verified 04/25/20 13:25 [From Cymbalta] escitalopram oxalate AdvReac manic Verified 04/25/20 15:26 [From Lexapro] Vital Signs Temp 98.1 F 04/26/20 03:27 Pulse 90 04/26/20 03:27 Resp 16 04/26/20 03:27 BP 122/79 04/26/20 03:27 Pulse Ox 100 04/25/20 15:41 Intake & Output 04/25/20 04/26/20 04/26/20 18:59 06:59 18:59 Weight 72.575 kg Laboratory Last Values WBC 9.7 k/uL (3.8-10.6) 04/26/20 08:05 RBC 4.80 m/uL (3.80-5.40) 04/26/20 08:05 Hgb 13.8 gm/dL (11.4-16.0) 04/26/20 08:05 Hct 43.8 % (34.0-46.0) 04/26/20 08:05 MCV 91.2 fL (80.0-100.0) 04/26/20 08:05 MCH 28.6 pg (25.0-35.0) 04/26/20 08:05 MCHC 31.4 g/dL (31.0-37.0) 04/26/20 08:05 RDW 12.5 % (11.5-15.5) 04/26/20 08:05 Plt Count 164 k/uL (150-450) 04/26/20 08:05 Neutrophils % 61 % 04/26/20 08:05 Lymphocytes % 32 % 04/26/20 08:05 Monocytes % 4 % 04/26/20 08:05 Eosinophils % 2 % 04/26/20 08:05 Basophils % 1 % 04/26/20 08:05 Neutrophils # 5.9 k/uL (1.3-7.7) 04/26/20 08:05 Lymphocytes # 3.1 k/uL (1.0-4.8) 04/26/20 08:05 Monocytes # 0.4 k/uL (0-1.0) 04/26/20 08:05 Eosinophils # 0.2 k/uL (0-0.7) 04/26/20 08:05 Basophils # 0.1 k/uL (0-0.2) 04/26/20 08:05 Sodium 138 mmol/L (137-145) 04/26/20 08:05 Potassium 4.0 mmol/L (3.5-5.1) 04/26/20 08:05 Chloride 105 mmol/L (98-107) 04/26/20 08:05 Carbon Dioxide 28 mmol/L (22-30) 04/26/20 08:05 Anion Gap 5 mmol/L 04/26/20 08:05 BUN 10 mg/dL (7-17) 04/26/20 08:05 Creatinine 0.80 mg/dL (0.52-1.04) 04/26/20 08:05 Est GFR (CKD-EPI)AfAm >90 (>60 ml/min/1.73 sqM) 04/26/20 08:05 Est GFR (CKD-EPI)NonAf >90 (>60 ml/min/1.73 sqM) 04/26/20 08:05 Glucose 87 mg/dL (74-99) 04/26/20 08:05 Calcium 8.8 mg/dL (8.4-10.2) 04/26/20 08:05 Total Bilirubin 1.2 mg/dL (0.2-1.3) 04/26/20 08:05 AST 18 U/L (14-36) 04/26/20 08:05 ALT 12 U/L (4-34) 04/26/20 08:05 Alkaline Phosphatase 85 U/L (38-126) 04/26/20 08:05 Total Protein 6.4 g/dL (6.3-8.2) 04/26/20 08:05 Albumin 3.7 g/dL (3.5-5.0) 04/26/20 08:05 Triglycerides 132 mg/dL (<150) 04/26/20 08:05 Cholesterol 130 mg/dL (<200) 04/26/20 08:05 LDL Cholesterol, Calc 59 mg/dL (0-99) 04/26/20 08:05 HDL Cholesterol 45 mg/dL (40-60) 04/26/20 08:05 Urine Opiates Screen Not Detected (NotDetected) 04/25/20 12:35 Ur Oxycodone Screen Not Detected (NotDetected) 04/25/20 12:35 Urine Methadone Screen Not Detected (NotDetected) 04/25/20 12:35 Ur Propoxyphene Screen Not Detected (NotDetected) 04/25/20 12:35 Ur Barbiturates Screen Not Detected (NotDetected) 04/25/20 12:35 Valproic Acid 34.7 ug/mL 04/25/20 18:14 U Tricyclic Antidepress Not Detected (NotDetected) 04/25/20 12:35 Ur Phencyclidine Scrn Not Detected (NotDetected) 04/25/20 12:35 Ur Amphetamines Screen Not Detected (NotDetected) 04/25/20 12:35 U Methamphetamines Scrn Not Detected (NotDetected) 04/25/20 12:35 U Benzodiazepines Scrn Not Detected (NotDetected) 04/25/20 12:35 Urine Cocaine Screen Not Detected (NotDetected) 04/25/20 12:35 U Marijuana (THC) Screen Detected (NotDetected) H 04/25/20 12:35 04/26/20 09:42 IDENTIFYING DATA: This patient is a 29-year-old single female who was admitted to the mental health unit with a pickup order reporting symptoms of breanna suicidal and homicidal thoughts. HPI: The patient is well-known to the psychiatric service she does carry diagnosis of bipolar 1 disorder. She is also known to have a cannabis use disorder. The patient was petitioned for a pickup order indicating the patient had recently climbed a local water tower threatening to jump off. Apparently she made statements of harming herself and others. The patient states that she wants to get out of this hospital plans to leave town and joining the [employer]. She states that she is going to get custody of her children again they're going to live [place] a [employer] [place]. The patient has been on Abilify maintena and is due to receive her next injection on May 10. Reportedly she just spoke with her psychiatrist and was started on oral Abilify 15 mg daily. She is prescribed Depakote ER 500 mg twice daily. She indicates she has been compliant with that medication but her Depakote level was 34.7. She is reporting no symptoms at this time. She reports no suicidal or homicidal ideation she indicates she does not feel hopeless. She reports that her appetite is ravenous but she is losing weight due to exercise. She reports sleep has been good. The patient is not a reliable historian at this time. PAST PSYCHIATRIC HISTORY: This is the patient's 11th psychiatric admission on this unit since September 2014. She does have a history of 3 suicide attempts, 2 overdoses, and she also cut her wrist area she follows with Dr. Hampton at [facility]. She is on Abilify maintena, recently started on an oral dose of Abilify, Depakote ER 500 mg twice a day. She has several antidepressants listed as ALLERGIES. PMH: She indicates that she has hypertension and precancerous cells on her cervix she is due to have a hysterectomy. She is following with her net mobile developer. ALLERGIES: She indicates she is ALLERGIC to Wellbutrin, Trintellix, Celexa, Lexapro MEDICATIONS: Refer to [facility] CHEMICAL DEPENDENCY HISTORY: Frequent use of marijuana, she reports no use of alcohol or illicit drugs, she has a history of alcohol binge drinking in her 20s and remote history of using cocaine FAMILY PSYCHIATRIC HISTORY: She has previously stated her mother is known to have bipolar disorder, no suicides in the family FAMILY CHEMICAL DEPENDENCY HISTORY: She reports several family members are known to have addictions SOCIAL HISTORY: The patient is 29 years old she single she has 2 sons ages 3 and 1 she reports that she does not have custody of either and they are in foster care, the patient is unemployed she had been living with her mother states she will not return there. She does have a disability income. 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 She has 2 full siblings one half sibling she reports that her brother just recently due to myocardial infarction. Abuse history unknown, she reports that she was previously convicted of filing a false police report alleging rate MENTAL STATUS EXAM: The patient is a tall female appearing her stated age she has a disheveled appearance she is dressed in her own clothing. She is wearing eyeglasses. Speech is fluent spontaneous mildly pressured at times she maintains a bland affect. She is reporting no suicidal or homicidal ideation, she is reporting no auditory or visual hallucinations and she reports no specific delusions. However during the course of the hospitalization she states that she will be joining the [employer] and leaving for [employer] [place] in 6 months. She does provide conflicting reports regarding her future plans. At other times she states that she will leave the unit without of town obtain her own housing and get her children back. She demonstrated no verbal or physical aggressiveness. She was very direct in conversation almost irritable at times. She is demonstrating no involuntary repetitive movements. She is able to name the current date as well as in the days of the week backwards. STRENGTHS/WEAKNESSES: Strengths: Income, [facility] support, weaknesses possible medication noncompliance, ongoing use of marijuana INTELLECTUAL FUNCTIONING: Average IMPRESSIONS: [] 1. Bipolar 1 disorder most recent manic with psychosis, cannabis use disorder moderate PLAN: The patient has been admitted to the mental health unit voluntarily. We reviewed her presenting symptoms and treatment options. She is agreeable to supplementing the Abilify maintena with an oral Abilify dose we will initiate with 5 mg daily we will continue the Depakote ER 500 mg twice daily. She'll be seen by internal medicine for routine history and physical exam. We will monitor her for safety and ask her to participate in groups. Social work will meet with the patient to complete a psychosocial assessment and to begin discharge planning. We will involve any available support in her treatment and discharge planning as she will allow.
[2020-04-26] MEDS: ARIPiprazole 5 MG TAB PO SCH (10:01)
[2020-04-26] MEDS: DICYCLOMINE 10 MG CAP PO PRN (10:01)
[2020-04-26 18:11] LABS: Hemoglobin A1C 5.2 % (4.0-6.0)
[2020-04-27] MEDS: ACETAMINOPHEN TAB 325 MG TAB PO PRN ×3 (06:48→16:05)
[2020-04-27] MEDS: DIVALPROEX ER 500 MG TAB.ER.24H PO SCH ×2 (08:09→19:43)
[2020-04-27] MEDS: ARIPiprazole 5 MG TAB PO SCH (08:09)
[2020-04-27] MEDS: NICOTINE 14MG/24HR PATCH TRANSDERM SCH (08:09)
[2020-04-27] MEDS: LORATADINE 10 MG TAB PO SCH (08:09)
[2020-04-27] MEDS: DICYCLOMINE 10 MG CAP PO PRN (08:10)
[2020-04-27] MEDS: SPRINTEC-28 PO SCH (08:52)
--- NOTE | 2020-04-27 09:05 | P.PN ---
Progress Note - Text Interval history: The patient is found that the desire follows me to an interview room. He indicates that she slept well staff reported she slept 3 hours. She reports appetite is stable. She states that she had 2 phone calls with her mother however she still very angry with her and those calls did not go well. The patient's plan is to be discharged from the hospital and go to what group home or stay with a friend until she can go to a group home. She continues to blame us and this hospitalization as the reason for her losing her children. She continues to state that she plans to join the [employer]. She has no questions or concerns regarding her medications. Mental status exam: The patient is alert she's dresser own clothing she has a disheveled appearance hygiene is adequate. Eye contact is appropriate speech is fluent and spontaneous nonpressured. She demonstrates some lability of affect during the session. Towards and of the session she becomes acutely tearful and terminates the session by getting up walking out. She demonstrates some disorganization of thought she describes some grandiose thinking as well as per secutory beliefs. Insight and judgment are impaired. She demonstrated no verbal or physical aggressiveness she demonstrates no involuntary repetitive movements. Plan: The patient will continue on her current medications we will monitor her for safety we will titrate the Abilify and Depakote as needed. We will encourage full participation in the milieu. The patient requires continued psychiatric hospitalization for acute safety reasons. We will involve her mother in treatment and discharge planning as the patient will allow.
[2020-04-27] MEDS: LORazepam 0.5 MG TAB PO PRN ×2 (11:44→19:44)
[2020-04-28] MEDS: ACETAMINOPHEN TAB 325 MG TAB PO PRN ×2 (04:08→12:09)
[2020-04-28] MEDS: NICOTINE 14MG/24HR PATCH TRANSDERM SCH (07:48)
[2020-04-28] MEDS: LORATADINE 10 MG TAB PO SCH (07:51)
[2020-04-28] MEDS: DICYCLOMINE 10 MG CAP PO PRN ×2 (07:51→18:39)
[2020-04-28] MEDS: LORazepam 0.5 MG TAB PO PRN ×2 (07:51→19:49)
[2020-04-28] MEDS: ARIPiprazole 5 MG TAB PO SCH (07:51)
[2020-04-28] MEDS: DIVALPROEX ER 500 MG TAB.ER.24H PO SCH ×2 (07:52→19:47)
--- NOTE | 2020-04-28 09:00 | P.PN ---
Progress Note - Text Interval history: The patient is found in the hallway she follows me to an interview room. She reports that her moods improving. She reports that she slept throughout the night staff recorded she slept 6 hours. Appetite is stable. She reports that one of the other patients called her a mean person and she became tearful as a result. We processed the situation in some detail and provided some suggestions for cognitive reframing. She has no questions or concerns regarding her medication other than knowing when we were going to draw a Depakote level. He reports attending groups. No reports of any behavioral disturbance. Ental status exam: The patient is alert she was observed prior to our conversation laying on the hallway floor doing abdominal crunches. She enjoys without difficulty she remains calmly seated in the chair during our session in the interview room. Hygiene grooming adequate she's wearing her eyeglasses. Eye contact is appropriate speech is fluent spontaneous she is nonpressured today. Thought process is more linear. She does not spontaneously describe any delusional thoughts but those thoughts do still persist. She demonstrated no verbal or physical aggressiveness she is demonstrating no involuntary repetitive movements. Insight and judgment limited but improving slowly. She remains oriented to person place and date. Plan: The patient will continue on her current psychotropic medication. We'll plan to draw a Depakote level Friday. We will continue to assess her for safety. She is encouraged to participate fully in the milieu. Vital signs reviewed. She requires continued psychiatric hospitalization but may be appropriate for discharge as early as Friday or Friday.
[2020-04-28] MEDS: SPRINTEC-28 PO SCH (10:54)
[2020-04-29] MEDS: ACETAMINOPHEN TAB 325 MG TAB PO PRN ×3 (01:33→20:00)
[2020-04-29] MEDS: DICYCLOMINE 10 MG CAP PO PRN (07:59)
[2020-04-29] MEDS: LORATADINE 10 MG TAB PO SCH (07:59)
[2020-04-29] MEDS: DIVALPROEX ER 500 MG TAB.ER.24H PO SCH ×2 (08:00→20:00)
[2020-04-29] MEDS: SPRINTEC-28 PO SCH (08:02)
[2020-04-29] MEDS: ARIPiprazole 5 MG TAB PO SCH (08:02)
[2020-04-29] MEDS: NICOTINE 14MG/24HR PATCH TRANSDERM SCH (08:02)
[2020-04-29] MEDS: LORazepam 0.5 MG TAB PO PRN ×2 (09:39→19:59)
--- NOTE | 2020-04-29 09:39 | P.PN ---
Progress Note - Text Interval history: The patient's found in the hallway she follows me to an interview room. She indicates her mood is stable. She states that she slept 6- 8 hours staff reports she slept 5 hours. She appears to be cooperative with her medications. She has been attending groups. No report of any behavioral disturbances. She indicates that she will likely stay with her aunt briefly and then look for detention placement. She reports that it is her goal to obtain employment and housing so that she is able to get her children back. Mental status exam: The patient is alert she is dressed in her own clothing hygiene grooming adequate eye contact is appropriate speech is fluent spontaneous nonpressured. Thought process is becoming more linear. She reporting no suicidal or homicidal ideation intent or plan. She is endorsing no auditory or visual hallucinations or specific delusions. There may be some residual delusional thoughts still present. Insight and judgment improving. She demonstrates no verbal or physical aggressiveness she demonstrates a very repetitive movements. She is demonstrating no tangential thinking loose associations or flight of ideas. Plan: The patient will continue on her current medication we will draw a Depakote level tomorrow morning. We will monitor her for safety and encourage full participation in the milieu. We may consider discharging her soon as Friday if clinically stable.
[2020-04-30] MEDS: ACETAMINOPHEN TAB 325 MG TAB PO PRN ×3 (01:18→20:10)
[2020-04-30 06:45] VITALS: RESP 18
[2020-04-30] MEDS: NICOTINE 14MG/24HR PATCH TRANSDERM SCH (08:30)
[2020-04-30] MEDS: SPRINTEC-28 PO SCH (08:33)
[2020-04-30] MEDS: DICYCLOMINE 10 MG CAP PO PRN ×2 (08:33→20:10)
[2020-04-30] MEDS: DIVALPROEX ER 500 MG TAB.ER.24H PO SCH ×2 (08:33→20:10)
[2020-04-30] MEDS: LORazepam 0.5 MG TAB PO PRN ×2 (08:33→15:59)
[2020-04-30] MEDS: LORATADINE 10 MG TAB PO SCH (08:33)
[2020-04-30] MEDS: ARIPiprazole 5 MG TAB PO SCH (08:33)
[2020-04-30] MEDS ORDERED: IBUPROFEN 600 MG TAB PO PRN (09:25)
--- NOTE | 2020-04-30 09:35 | P.PN ---
Progress Note - Text Interval history: The patient is found at the hotel front desk clerk she follows me to an interview room. She indicates her mood is good. She had a good discussion with her mother last evening. The patient plans to stay with her "aunt" upon discharge. She indicates this is actually her ex-boyfriends aunt but they have maintained a good relationship. The patient has been attending groups no reports of any behavioral disturbance. The Depakote level did come back at 33 we discussed it typically that is subtherapeutic but she does appear to be stabilizing. She indicates that she has adverse side effects whenever the dosage is raised above 1000 mg. Mental status exam: The patient is alert she is dressed in her own clothing hygiene grooming adequate. She is able to remain seated in the chair without any psychomotor agitation. Eye contact is good speech is fluent and spontaneous nonpressured. For the most part thought process is linear she demonstrates no loose associations flight of ideas no tangential thinking today. She is reporting no hopelessness thinking no suicidal ideation intent or plan. She reports no homicidal ideation intent or plan. She is endorsing no auditory or visual hallucinations or any specific delusions. She is not spontaneously describing any paranoid or persecutory thinking. Insight and judgment i mproving, she demonstrates no verbal or physical aggressiveness she demonstrates no involuntary repetitive movements. Plan: The patient appears to be clinically stabilizing. We will continue her medication as written. Vital signs reviewed. If she continues to demonstrate continued stability we will consider discharging her in the next 1-2 days. She is encouraged to continue participating in the milieu.
[2020-05-01] MEDS: ACETAMINOPHEN TAB 325 MG TAB PO PRN (03:28)
[2020-05-01] MEDS: LORazepam 0.5 MG TAB PO PRN (06:02)
[2020-05-01 06:06] VITALS: BP 124/74; PULSE 63
[2020-05-01 06:50] VITALS: TEMP 98.3
[2020-05-01] MEDS: NICOTINE 14MG/24HR PATCH TRANSDERM SCH (08:14)
[2020-05-01] MEDS: DICYCLOMINE 10 MG CAP PO PRN (08:14)
[2020-05-01] MEDS: ARIPiprazole 5 MG TAB PO SCH (08:14)
[2020-05-01] MEDS: DIVALPROEX ER 500 MG TAB.ER.24H PO SCH (08:14)
[2020-05-01] MEDS: SPRINTEC-28 PO SCH (08:14)
[2020-05-01] MEDS: LORATADINE 10 MG TAB PO SCH (08:14)
--- NOTE | 2020-05-01 09:09 | P.DS ---
Providers Date of admission: 04/25/20 14:35 Expected date of discharge: 05/01/20 Attending physician: Brayan Collins Consults: 04/25/20 15:40 Consult Physician Routine Consulting Provider: Mounika Hope Consult Reason/Comments: H&P and medical Do you want consulting provider notified?: Yes Primary care physician: Kat Orozco - Discharge Diagnosis(es) (1) Severe manic bipolar 1 disorder with psychotic behavior Current Visit: Yes Status: Acute Priority: High (2) Cannabis use disorder, moderate, dependence Current Visit: Yes Status: Acute Priority: Medium Hospital Course: Brief summary of admission note: This patient is a 29-year-old single female who was admitted to the mental health unit on a pickup order reporting symptoms of breanna with suicidal and homicidal ideation. This patient is well- known to the psychiatric service and she carries a diagnosis of bipolar 1 disorder. She is also known to have a cannabis use disorder. The petition indicated the patient recent climbed a local water tower and was threatening to jump off. She apparently made statements of harming herself. She reported that she wanted to leave the town and joining the [employer]. For full details please refer to the psychiatric evaluation dated 04/26/2020. Summary of hospital course: The patient was admitted to the mental health unit voluntarily. We reviewed her presenting symptoms and treatment options. He is already on Abilify maintena 400 mg every 28 days I was informed that the next dose was due May 10. This was supplemented with oral Abilify 5 mg daily, we continued her Depakote ER 500 mg twice daily. She was seen by internal medicine for routine history and physical exam area social work met with the patient to complete a psychosocial assessment and for discharge planning purposes. During the course of her hospitalization she did sufficiently stabilized. She has been able to sleep at night appetite stable she is appropriately participating in groups. We are familiar with her baseline function and she seems to have approximated that level of function. She has reported no suicidal or homicidal ideation intent or plan on the mental health unit. She is now demonstrating future oriented thinking. He states that she wants to obtain her own housing transportation and establish her independence. Mental status exam: The patient is alert she presents with good hygiene grooming she is wearing her eyeglasses she is dressed in her own clothing. She is calmly seated in the chair. She is easily directed in the interview. She indicates her mood is much better. She reports no hopelessness thinking no suicidal ideation intent or plan. She reports no auditory or visual hallucinations or any specific delusions. There is no objective evidence of psychosis at this time. She demonstrates no tangential thinking loose associations or flight of ideas, she does not currently appear hypomanic or manic. Insight and judgment have improved. She demonstrates no verbal or physical aggressiveness she demonstrates no involuntary repetitive movements. She remains oriented to person place and date. Impressions 1. Bipolar 1 disorder most recent manic severe with psychosis, cannabis use disorder moderate Plan: The patient will be discharged mental health unit today. She states that she plans to stay in a fdc until she establishes her own residence. She will [facility] She will continue on Abilify maintena 400 mg IM every 28 days next dose due May 10. She will continue on Abilify 5 mg daily Depakote ER 500 mg twice daily. She is instructed to abstain from any use of alcohol marijuana or illicit drugs. We discussed the substance provoke mood and psychotic symptoms and elevate her safety risk. She does not require inpatient chemical dependency treatment she does not wish to have any medication prescribed regarding her substance use. At this time there is no imminent safety risk she is appropriate for transition to outpatient care. She is instructed to return to the hospital if any acute safety concerns. Patient Condition at Discharge: Stable Plan - Discharge Summary New Discharge Prescriptions: New ARIPiprazole [Abilify] 5 mg PO DAILY #30 tab Dicyclomine [Bentyl] 10 mg PO BID PRN #60 cap PRN Reason: Dyspepsia Nicotine 14Mg/24Hr Patch [Habitrol] 1 patch TRANSDERM DAILY #14 patch Continue Norgestimate-Ethinyl Estradiol [Sprintec 28 Day Tablet] 1 tab PO DAILY ARIPiprazole IM [Abilify Maintena] 400 mg IM Q28D #1 vial Loratadine [Claritin] 10 mg PO DAILY #30 tab Divalproex ER [Depakote ER] 500 mg PO BID #60 tab Discontinued ARIPiprazole [Abilify] 15 mg PO DAILY #14 tab Discharge Medication List Norgestimate-Ethinyl Estradiol [Sprintec 28 Day Tablet] 1 tab PO DAILY 04/25/20 [History] ARIPiprazole IM [Abilify Maintena] 400 mg IM Q28D #1 vial 05/01/20 [Rx] ARIPiprazole [Abilify] 5 mg PO DAILY #30 tab 05/01/20 [Rx] Dicyclomine [Bentyl] 10 mg PO BID PRN #60 cap 05/01/20 [Rx] Divalproex ER [Depakote ER] 500 mg PO BID #60 tab 05/01/20 [Rx] Loratadine [Claritin] 10 mg PO DAILY #30 tab 05/01/20 [Rx] Nicotine 14Mg/24Hr Patch [Habitrol] 1 patch TRANSDERM DAILY #14 patch 05/01/20 [Rx] Follow up Appointment(s)/Referral(s): None,Stated [REFERRING] - 1-2 days
== END 2020-05-01 13:58 | disposition home or self-care (01) | DRG 885 ==
LOC: EC 12:28 → 3MHU 14:35
PROVIDERS: ADMIT Psychiatry & Neurology Psychiatry; ATTEND Psychiatry & Neurology Psychiatry
DX: F31.2 Bipolar disorder, current episode manic severe with psychotic features (principal); R45.851 Suicidal ideations; F12.20 Cannabis dependence, uncomplicated; F17.200 Nicotine dependence, unspecified, uncomplicated; F43.10 Post-traumatic stress disorder, unspecified; I10 Essential (primary) hypertension; I73.00 Raynaud's syndrome without gangrene; E80.4 Gilbert syndrome; F41.9 Anxiety disorder, unspecified; F90.9 Attention-deficit hyperactivity disorder, unspecified type; K58.9 Irritable bowel syndrome, unspecified; N88.8 Other specified noninflammatory disorders of cervix uteri; Z79.899 Other long term (current) drug therapy; Z88.8 Allergy status to other drugs, medicaments and biological substances; Z90.49 Acquired absence of other specified parts of digestive tract; Z91.5 Personal history of self-harm; Z82.49 Family history of ischemic heart disease and other diseases of the circulatory system; Z82.5 Family history of asthma and other chronic lower respiratory diseases; Z83.3 Family history of diabetes mellitus
CPT/HCPCS: 80053; 80061; 80164; 80306; 82075; 83036; 84443; 85025; 99285

== ENCOUNTER 2020-08-26 07:29 | Inpatient (IN) | payer MEDICARE, OTHER ==
[2020-08-26] MEDS ORDERED: NALOXONE 0.4 MG/ML 1 ML VIAL IV PRN (07:39)
[2020-08-26] MEDS ORDERED: HYDROmorphone 0.5 MG/0.5 ML SYRINGE IVP PRN (07:39)
[2020-08-26] MEDS ORDERED: ONDANSETRON 4 MG/2 ML VIAL IVP PRN (07:39)
--- NOTE | 2020-08-26 07:39 | ED ---
General Adult HPI - General Stated complaint: GI Bleed Time Seen by Provider: 08/26/20 07:32 Source: patient, EMS, RN notes reviewed Mode of arrival: EMS Limitations: no limitations - History of Present Illness Initial comments: This is a 29-year-old female presents emergency department via EMS as a transfer from [facility] with chief complaint of GI bleed. Patient reportedly started having stomach discomfort has been vomiting dark blood and having dark tarry stools. Patient states that she was taking Motrin. Heavily for dental pain. Patient was found to have a hemoglobin drop down to 8.4. Patient was given Protonix Zofran and 1 unit of blood. Patient does not have any significant past medical history. Patient did have a CAT scan as she had abdominal discomfort, leukocytosis at 20,000, GI bleed. CT did not reveal any acute abnormality. Patient's had prior cholecystectomy has never seen GI in the past. - Related Data Home Medications Medication Instructions Recorded Confirmed Norgestimate-Ethinyl Estradiol 1 tab PO DAILY 04/25/20 04/25/20 [Sprintec 28 Day Tablet] Previous Rx's Medication Instructions Recorded ARIPiprazole IM [Abilify Maintena] 400 mg IM Q28D #1 vial 05/01/20 ARIPiprazole [Abilify] 5 mg PO DAILY #30 tab 05/01/20 Dicyclomine [Bentyl] 10 mg PO BID PRN #60 cap 05/01/20 Divalproex ER [Depakote ER] 500 mg PO BID #60 tab 05/01/20 Loratadine [Claritin] 10 mg PO DAILY #30 tab 05/01/20 Nicotine 14Mg/24Hr Patch [Habitrol] 1 patch TRANSDERM DAILY #14 patch 05/01/20 Allergies Allergy/AdvReac Type Severity Reaction Status Date / Time bupropion HCl Allergy Rash/Hives Verified 04/25/20 13:25 [From Wellbutrin] vortioxetine Allergy Unknown Verified 04/25/20 13:25 [From Trintellix] citalopram hydrobromide AdvReac manic Verified 04/25/20 13:25 [From Celexa] duloxetine HCl AdvReac manic Verified 04/25/20 13:25 [From Cymbalta] escitalopram oxalate AdvReac manic Verified 04/25/20 15:26 [From Lexapro] Review of Systems ROS Statement: Those systems with pertinent positive or pertinent negative responses have been documented in the HPI. ROS Other: All systems not noted in ROS Statement are negative. Past Medical History Past Medical History: Hypertension Additional Past Medical History / Comment(s): Gilbert's syndrome, Raynaud syndrome, IBS. Obstetric history: First was a vaginal delivery at 32 weeks. This is her second . She's had care with me since the first trimester. Blood type B positive, amylase negative, rubella low immune, RPR nonreactive, hepatitis B negative, HIV nonreactive. She did see maternal medicine due to history of Depakote exposure and history of deliveries. She was found progesterone injections weekly. Anatomy ultrasound and echo were normal. History of Any Multi-Drug Resistant Organisms: None Reported Past Surgical History: Cholecystectomy, Orthopedic Surgery Additional Past Surgical History / Comment(s): Left ring finger surgery; leep procedure Past Anesthesia/Blood Transfusion Reactions: No Reported Reaction Past Psychological History: Anxiety, Bipolar Past Alcohol Use History: None Reported Past Drug Use History: Marijuana - Past Family History Father Family Medical History: COPD, Coronary Artery Disease (CAD) Additional Family Medical History / Comment(s): Father is alive with history of CAD and COPD Mother Family Medical History: Diabetes Mellitus, Hypertension Additional Family Medical History / Comment(s): Mother is alive with history of DM and HTN. Brother(s) Additional Family Medical History / Comment(s): Patient has 5 siblings with no major medical problems. General Exam General appearance: alert, in no apparent distress Head exam: Present: atraumatic, normocephalic, normal inspection Eye exam: Present: normal appearance, PERRL, EOMI. Absent: scleral icterus, conjunctival injection, periorbital swelling ENT exam: Present: normal exam, mucous membranes moist Neck exam: Present: normal inspection. Absent: tenderness, meningismus, lymp hadenopathy Respiratory exam: Present: normal lung sounds bilaterally. Absent: respiratory distress, wheezes, rales, rhonchi, stridor Cardiovascular Exam: Present: regular rate, normal rhythm, normal heart sounds. Absent: systolic murmur, diastolic murmur, rubs, gallop, clicks GI/Abdominal exam: Present: soft, normal bowel sounds. Absent: distended, tenderness, guarding, rebound, rigid Course Vital Signs 08/26/20 07:33 Temperature 98.7 F Pulse Rate 109 H Respiratory 18 Rate Blood Pressure 104/91 O2 Sat by Pulse 100 Oximetry Medical Decision Making - Medical Decision Making Medical records reviewed from [facility]. Patient will be admitted to medicine with consult to GI. Disposition Clinical Impression: Upper GI bleed, Peptic ulcer disease, Anemia Disposition: ADMITTED IP TO THIS HOSP Condition: Fair
[2020-08-26] MEDS: SODIUM CHLORIDE 0.9% 1,000 ML IV SCH (09:10)
[2020-08-26] MEDS: PANTOPRAZOLE 40 MG/10 ML VIAL IV SCH ×2 (09:14→22:02)
[2020-08-26] MEDS ORDERED: DIVALPROEX ER 500 MG TAB.ER.24H PO STA (10:30)
[2020-08-26] MEDS ORDERED: ARIPiprazole 15 MG TAB PO ONE (10:31)
[2020-08-26 10:49] LABS: MCH 30.5 pg (25.0-35.0); MCHC 33.3 g/dL (31.0-37.0); MCV 91.4 fL (80.0-100.0); Mean Platelet Volume 8.6; Platelet Count 175 k/uL (150-450); RBC 2.96 m/uL (3.80-5.40); RDW 12.6 % (11.5-15.5); WBC 13.3 k/uL (3.8-10.6)
[2020-08-26 11:20] LABS: African American GFR (CKD) >90 (>60 ml/min/1.73 sqM); Anion Gap 4 mmol/L; Blood Urea Nitrogen 25 mg/dL (7-17); Calcium 7.7 mg/dL (8.4-10.2); Carbon Dioxide 24 mmol/L (22-30); Chloride 104 mmol/L (98-107); Glucose 105 mg/dL (74-99); Non-African American GFR(CKD) >90 (>60 ml/min/1.73 sqM); Potassium 3.9 mmol/L (3.5-5.1); Sodium 132 mmol/L (137-145)
--- NOTE | 2020-08-26 12:57 | P.HPIM ---
History of Present Illness 29-year-old female came in with an episode of hematemesis. We'll also having dark tarry stools does take Motrin at home.. Patient was started on Protonix will undergo upper GI endoscopy tomorrow. Patient had a reactive leukocytosis. CT of the abdomen did not show any significant abnormality. Patient had a previous cholecystectomy in the past. Patient received monitor blood. Received transfusion. Patient is bit hyponatremic and tachycardic at this time. She is still with nauseous and doesn't have any abdominal pain. Review of Systems REVIEW OF SYSTEMS: CONSTITUTIONAL: No fever, no malaise, no fatigue. HEENT: No recent visual problems or hearing problems. Denied any sore throat. CARDIOVASCULAR: No chest pain, orthopnea, PND, no palpitations, no syncope. PULMONARY: No shortness of breath, no cough, no hemoptysis. GASTROINTESTINAL: No diarrhea, no abdominal pain. NEUROLOGICAL: No headaches, no weakness, no numbness. HEMATOLOGICAL: Denies any bleeding or petechiae. GENITOURINARY: Denies any burning micturition, frequency, or urgency. MUSCULOSKELETAL/RHEUMATOLOGICAL: Denies any joint pain, swelling, or any muscle pain. ENDOCRINE: Denies any polyuria or polydipsia. The rest of the 14-point review of systems is negative. Past Medical History Past Medical History: Hypertension Additional Past Medical History / Comment(s): Gilbert's syndrome, Raynaud syndrome, IBS. Obstetric history: First was a vaginal delivery at 32 weeks. This is her second . She's had care with me since the first trimester. Blood type B positive, amylase negative, rubella low immune, RPR nonreactive, hepatitis B negative, HIV nonreactive. She did see maternal medicine due to history of Depakote exposure and history of deliveries. She was found progesterone injections weekly. Anatomy ultrasound and echo were normal. History of Any Multi-Drug Resistant Organisms: None Reported Past Surgical History: Cholecystectomy, Orthopedic Surgery Additional Past Surgical History / Comment(s): Left ring finger surgery; leep procedure Past Anesthesia/Blood Transfusion Reactions: No Reported Reaction Past Psychological History: Anxiety, Bipolar Past Alcohol Use History: None Reported Past Drug Use History: Marijuana - Past Family History Father Family Medical History: COPD, Coronary Artery Disease (CAD) Additional Family Medical History / Comment(s): Father is alive with history of CAD and COPD Mother Family Medical History: Diabetes Mellitus, Hypertension Additional Family Medical History / Comment(s): Mother is alive with history of DM and HTN. Brother(s) Additional Family Medical History / Comment(s): Patient has 5 siblings with no major medical problems. Medications and Allergies Home Medications Medication Instructions Recorded Confirmed Type ARIPiprazole [Abilify] 15 mg PO DAILY 08/26/20 08/26/20 History Divalproex ER [Depakote ER] 1,000 mg PO BID 08/26/20 08/26/20 History Allergies Allergy/AdvReac Type Severity Reaction Status Date / Time bupropion HCl Allergy Rash/Hives Verified 08/26/20 09:33 [From Wellbutrin] vortioxetine Allergy Unknown Verified 08/26/20 09:33 [From Trintellix] citalopram hydrobromide AdvReac manic Verified 08/26/20 09:33 [From Celexa] duloxetine HCl AdvReac manic Verified 08/26/20 09:33 [From Cymbalta] escitalopram oxalate AdvReac manic Verified 08/26/20 09:33 [From Lexapro] Physical Exam Vitals: Vital Signs Temp Pulse Pulse Resp BP BP Pulse Ox 08/26/20 11:10 97.5 F L 101 H 18 108/65 08/26/20 09:03 97.4 F L 104 H 18 114/70 100 08/26/20 07:33 98.7 F 109 H 18 104/91 100 Intake and Output 08/25/20 08/26/20 08/26/20 22:59 06:59 14:59 Other: Weight 72.575 kg PHYSICAL EXAMINATION: GENERAL: The patient is alert and oriented x3, not in any acute distress. Well developed, well nourished. HEENT: Pupils are round and equally reacting to light. EOMI. No scleral icterus. No conjunctival pallor. Normocephalic, atraumatic. No pharyngeal erythema. No thyromegaly. CARDIOVASCULAR: S1 and S2 present. No murmurs, rubs, or gallops. Tachycardic PULMONARY: Chest is clear to auscultation, no wheezing or crackles. ABDOMEN: Soft, nontender, nondistended, normoactive bowel sounds. No palpable organomegaly. MUSCULOSKELETAL: No joint swelling or deformity. EXTREMITIES: No cyanosis, clubbing, or pedal edema. NEUROLOGICAL: Gross neurological examination did not reveal any focal deficits. SKIN: No rashes. Results CBC & Chem 7: 08/26/20 10:33 08/26/20 10:33 Labs: Abnormal Lab Results - Last 24 Hours (Table) 08/26/20 08/26/20 Range/Units 10:33 10:33 WBC 13.3 H (3.8-10.6) k/uL RBC 2.96 L (3.80-5.40) m/uL Hgb 9.0 L (11.4-16.0) gm/dL Hct 27.0 L (34.0-46.0) % Sodium 132 L (137-145) mmol/L BUN 25 H (7-17) mg/dL Glucose 105 H (74-99) mg/dL Calcium 7.7 L (8.4-10.2) mg/dL Assessment and Plan Plan: -Acute the upper GI bleed: Patient will undergo upper GI endoscopy tomorrow. Continue with IV Protonix IV fluids. -Acute blood loss anemia from upper GI bleed -Hypovolemic hyponatremia: Patient will be continued on IV fluids will increase the fluids to 100 mL/h -Tachycardia secondary to GI bleed -History of Gilbert's and Raynaud's syndrome. Nicotine cessation counseling was provided -Bipolar disorder
--- NOTE | 2020-08-26 21:26 | P.CONS ---
History of Present Illness - Reason for Consult Consult date: 08/26/20 GI bleed Requesting physician: Karissa Barajas - Chief Complaint GI bleed - History of Present Illness 29-year-old female with a reported history of Gilbert syndrome and Raynaud syndrome who presents to the hospital as a transfer from [facility] due to GI bleed. The patient reports waking up Nikolay and vomiting with multiple episodes of coffee-ground emesis reported. She also reports approximate 4-5 episodes of melanotic bowel movements. She denies any sadie abdominal pain. She denies any vomiting since presentation to the hospital but is persistently joleen seated. No prior episodes of GI bleeding. She has never required an EGD or colonoscopy in the past. The patient reports she needs to have 8 teeth removed and due to the pain has been taking Motrin 800 mg 2-3 times daily for the last 3 weeks. Computed tomography scan at outside facility with no reports of abnormalities. Hemoglobin was reported as a 8.4 at the facility and found to be 9.0 after 1 unit of PRBCs. Review of Systems REVIEW OF SYSTEMS: CONSTITUTIONAL: Denies any fevers, chills, weight change or fatigue. CARDIOVASCULAR: Denies any chest pain, palpitations high or low blood pressures RESPIRATORY: Denies any shortness of breath, hemoptysis or cough. GENITOURINARY: No dysuria or hematuria. MUSCULOSKELETAL: No weakness reported. SKIN: Denies any new rashes or lesions, jaundice or pallor. PSYCHIATRIC: Denies any depression or anxiety. NEUROLOGY: Denies headache, denies any new focal deficits. EARS/NOSE/THROAT: No recent hearing change, congestion, nasal discharge or sore throat. EYES: No pain in eyes, discharge or change in vision. GASTROINTESTINAL: As per HPI. Past Medical History Past Medical History: Hypertension Additional Past Medical History / Comment(s): Gilbert's syndrome, Raynaud syndrome, IBS. Obstetric history: First was a vaginal delivery at 32 weeks. This is her second . She's had care with me since the first trimester. Blood type B positive, amylase negative, rubella low immune, RPR nonreactive, hepatitis B negative, HIV nonreactive. She did see maternal medicine due to history of Depakote exposure and history of deliveries. She was found progesterone injections weekly. Anatomy ultrasound and echo were normal. History of Any Multi-Drug Resistant Organisms: None Reported Past Surgical History: Cholecystectomy, Orthopedic Surgery Additional Past Surgical History / Comment(s): Left ring finger surgery; leep procedure Past Anesthesia/Blood Transfusion Reactions: No Reported Reaction Past Psychological History: Anxiety, Bipolar Past Alcohol Use History: None Reported Past Drug Use History: Marijuana - Past Family History Father Family Medical History: COPD, Coronary Artery Disease (CAD) Additional Family Medical History / Comment(s): Father is alive with history of CAD and COPD Mother Family Medical History: Diabetes Mellitus, Hypertension Additional Family Medical History / Comment(s): Mother is alive with history of DM and HTN. Brother(s) Additional Family Medical History / Comment(s): Patient has 5 siblings with no major medical problems. Medications and Allergies Home Medications Medication Instructions Recorded Confirmed Type ARIPiprazole [Abilify] 15 mg PO DAILY 08/26/20 08/26/20 History Divalproex ER [Depakote ER] 1,000 mg PO BID 08/26/20 08/26/20 History Allergies Allergy/AdvReac Type Severity Reaction Status Date / Time bupropion HCl Allergy Rash/Hives Verified 08/26/20 09:33 [From Wellbutrin] vortioxetine Allergy Unknown Verified 08/26/20 09:33 [From Trintellix] citalopram hydrobromide AdvReac manic Verified 08/26/20 09:33 [From Celexa] duloxetine HCl AdvReac manic Verified 08/26/20 09:33 [From Cymbalta] escitalopram oxalate AdvReac manic Verified 08/26/20 09:33 [From Lexapro] Physical Exam Vitals: Vital Signs Temp Pulse Pulse Resp BP BP Pulse Ox 08/26/20 09:03 97.4 F L 104 H 18 114/70 100 08/26/20 07:33 98.7 F 109 H 18 104/91 100 Intake and Output 08/25/20 08/26/20 08/26/20 22:59 06:59 14:59 Other: Weight 72.575 kg On physical examination, patient appears comfortable in no apparent distress. HEAD: Normocephalic, atraumatic. EYES: No scleral icterus. No conjunctival injection. MOUTH: No lesions, tongue midline. NECK: Trachea midline, no gross abnormalities. CHEST: Clear to auscultation with no wheezing or rhonchi appreciated. HEART: Regular rate and rhythm. ABDOMEN: Soft, thin and nontender to palpation. Bowel sounds are positive. No organomegaly. No guarding or rigidity. EXTREMITIES: No pedal edema. SKIN: No rashes, no jaundice. NEUROLOGIC: Alert and oriented x3. No focal deficits. Results CBC & Chem 7: 08/26/20 10:33 08/26/20 10:33 CT scan - abdomen: report reviewed (computed tomography scan from outside facility with no reported abnormalities as per report) Assessment and Plan (1) Anemia associated with acute blood loss Narrative/Plan: 29-year-old female who presents as a transfer from [facility] where she was seen for coffee-ground emesis and melena and was found to have a hemoglobin of 8.4. Currently 9 after presentationthe patient denied any further episodes of GI bleeding since transfer, however she subsequently had melanotic stool and further coffee-ground emesis after being seen. hemodynamically she has remained stable. The patient had been taking high-dose Motrin 800 mg 2-3 times daily for the past 3 weeks for pain associated withteeth she states need to be removed. Suspicion is for peptic ulcer disease, differential includes gastritis, esophagitis, Dieulafoy lesion or other etiology. Current Visit: Yes Status: Acute Code(s): D62 - ACUTE POSTHEMORRHAGIC ANEMIA SNOMED Code(s): 635673007 (2) Upper GI bleed Current Visit: Yes Status: Acute Code(s): K92.2 - GASTROINTESTINAL HEMORRHAGE, UNSPECIFIED SNOMED Code(s): 90170447 Plan: supportive care continue to monitor hemoglobin and hematocrit every 6 hours and transfuse as needed Nothing by mouth except for ice chips Nothing to eat or drink after midnight IV Protonix twice a day Avoid NSAID use Continue to monitor for signs or symptoms GI bleeding Hold anticoagulation therapy Plan for EGD tomorrow for further evaluation, the case and treatment plan as well as the risks, benefits and possible complications of the procedure have b een discussed with the patient at length with all of her questions answered to her satisfaction Thank you for allowing us to participate in the care of the patient
[2020-08-26] MEDS: DIVALPROEX ER 500 MG TAB.ER.24H PO SCH (22:02)
[2020-08-26 23:57] LABS: Basophils # (A) 0.1 k/uL (0-0.2); Basophils % (A) 1 %; Eosinophils # (A) 0.1 k/uL (0-0.7); Eosinophils % (A) 1 %; HCT 22.7 % (34.0-46.0); HGB 7.7 gm/dL (11.4-16.0); Lymphocytes # (A) 3.5 k/uL (1.0-4.8); Lymphocytes % (A) 37 %; Mean Platelet Volume 8.5; Monocytes # (A) 0.5 k/uL (0-1.0); Monocytes % (A) 5 %; Neutrophils # (A) 5.1 k/uL (1.3-7.7); Neutrophils % (A) 55 %; Platelet Count 122 k/uL (150-450); WBC 9.3 k/uL (3.8-10.6)
[2020-08-27] MEDS: SODIUM CHLORIDE 0.9% 1,000 ML IV SCH ×3 (06:05→11:43)
[2020-08-27 07:07] LABS: HCT 21.1 % (34.0-46.0); HGB 7.2 gm/dL (11.4-16.0); MCH 31.4 pg (25.0-35.0); MCHC 34.1 g/dL (31.0-37.0); MCV 92.1 fL (80.0-100.0); Mean Platelet Volume 8.5; Platelet Count 116 k/uL (150-450); RBC 2.29 m/uL (3.80-5.40); WBC 8.9 k/uL (3.8-10.6)
[2020-08-27 07:20] LABS: African American GFR (CKD) >90 (>60 ml/min/1.73 sqM); Anion Gap 1 mmol/L; Blood Urea Nitrogen 12 mg/dL (7-17); Calcium 7.4 mg/dL (8.4-10.2); Carbon Dioxide 25 mmol/L (22-30); Chloride 107 mmol/L (98-107); Glucose 93 mg/dL (74-99); Non-African American GFR(CKD) >90 (>60 ml/min/1.73 sqM); Potassium 3.5 mmol/L (3.5-5.1); Sodium 133 mmol/L (137-145)
[2020-08-27] MEDS: DIVALPROEX ER 500 MG TAB.ER.24H PO SCH (08:23)
[2020-08-27] MEDS: PANTOPRAZOLE 40 MG/10 ML VIAL IV SCH (08:23)
[2020-08-27] MEDS ORDERED: ARIPiprazole 15 MG TAB PO SCH (09:00)
[2020-08-27 10:06] VITALS: RESP 18
[2020-08-27 10:42] VITALS: BP 113/67; TEMP 97.7
[2020-08-27 10:46] VITALS: PULSE 97
[2020-08-27] MEDS ORDERED: IV FLUID CONTINUATION 800 ML IV ONE (11:31)
[2020-08-27] MEDS ORDERED: PROPOFOL 10 MG/ML 20 ML VIAL IV ONE (11:31)
--- NOTE | 2020-08-27 12:21 | P.PCN ---
Date of Procedure: 08/27/20 Description of Procedure: BRIEF HISTORY: 29-year-old female with a reported history of Gilbert syndrome and Raynaud syndrome who presents to the hospital as a transfer from [facility] due to GI bleed. The patient reports waking up Nikolay and vomiting with multiple episodes of coffee-ground emesis reported. She also reports approximate 4-5 episodes of melanotic bowel movements. She denies any sadie abdominal pain. She denies any vomiting since presentation to the hospital but is persistently nauseated. No prior episodes of GI bleeding. She has never required an EGD or colonoscopy in the past. The patient reports she needs to have 8 teeth removed and due to the pain has been taking Motrin 800 mg 2-3 times daily for the last 3 weeks. Computed tomography scan at outside facility with no reports of abnormalities. Hemoglobin was reported as a 8.4 at the facility and found to be 9.0 after 1 unit of PRBCs. PROCEDURE PERFORMED: Esophagogastroduodenoscopy with biopsy and Endo Clip placement. PREOPERATIVE DIAGNOSIS: Coffee ground emesis, anemia of acute blood loss. ESTIMATED BLOOD LOSS: Minimal. IV sedation per anesthesia. PROCEDURE: After informed consent was obtained, the patient was brought into the endoscopy unit. IV sedation was administered by Anesthesia under continuous monitoring. Initially the Olympus GIF-190 video endoscope was inserted into the mouth. Esophagus intubated without any difficulty. It was gradually advanced into the stomach and duodenum and carefully examined. The bulb and the second part of the duodenum appeared normal, with biopsies taken. The scope at this time was withdrawn to the stomach, adequately insufflated with air, and upon careful examination, mucosa of the antrum, body, cardia and the fundus appeared normal, except for scattered punctate erythema in the antrum, body and fundus of the stomach with biopsies taken of the antrum body. The scope was then withdrawn into the esophagus. The GE junction was located at 39 cm from the incisors. The esophagus appeared normal, except for a linear 1 cm nonbleeding distal esophageal ulcer treated with Endo Clip placement. There were no other erosions or ulcerations seen and the patient tolerated the procedure well. IMPRESSION: 1. Nonbleeding distal esophageal ulcer, treated with Endo Clip placement. 2. Mild gastritis. 3. Biopsies of the antrum body and duodenum. RECOMMENDATIONS: The findings of this examination were discussed with the patient and her mother. Okay for full liquid diet. Continue Protonix twice daily. Continue Carafate 4 times a day before meals and at bedtime. Continue monitor hemoglobin and hematocrit and transfuse as needed. Further recommendations pending clinical course.
[2020-08-27] MEDS ORDERED: SUCRALFATE 1 GM TAB PO SCH (12:30)
--- NOTE | 2020-08-27 13:54 | P.PN ---
Subjective Patient was [id number] female admitted for acute upper GI bleed found to have ulcer in the lower esophageal area for which patient is an Endo Clip. Patient had oxalosis today because of which her oim consultant at [place] monitoring 1 more day patient and less today on clear liquid diet at this time. Patient hemoglobin is 7.1 with some hemodiluted 3 affect. Constitutional: Denied any fatigue denied any fever. Cardio vascular: denied any chest pain, palpitations Gastrointestinal denied any nausea vomiting Pulmonary: Denied any shortness of breath cough Neurologic denied any new focal deficits All inpatient medications were reviewed and appropriate changes in these medications as dictated in the interval history and assessment and plan. Objective - Vital Signs Vital signs: Vital Signs Temp 97.7 F 08/27/20 10:41 Pulse 97 08/27/20 11:41 Resp 18 08/27/20 10:41 BP 113/67 08/27/20 10:41 Pulse Ox 100 08/27/20 10:41 Intake & Output 08/26/20 08/27/20 08/27/20 18:59 06:59 18:59 Intake Total 300 310 410 Balance 300 310 410 Weight 72.575 kg 70.8 kg Intake: IV 100 Oral 300 Blood Product 0 310 310 Rc As-1 Unit 0 310 [id number] Rc Pheresis 2 As3 Unit 310 [id number] Other: # Voids 1 - Exam PHYSICAL EXAMINATION: GENERAL: The patient is alert and oriented x3, not in any acute distress. Well developed, well nourished. HEENT: Pupils are round and equally reacting to light. EOMI. No scleral icterus. ( have conjunctival pallor. Normocephalic, atraumatic. No pharyngeal erythema. No thyromegaly. CARDIOVASCULAR: S1 and S2 present. No murmurs, rubs, or gallops. PULMONARY: Chest is clear to auscultation, no wheezing or crackles. ABDOMEN: Soft, nontender, nondistended, normoactive bowel sounds. No palpable organomegaly. MUSCULOSKELETAL: No joint swelling or deformity. EXTREMITIES: No cyanosis, clubbing, or pedal edema. NEUROLOGICAL: Gross neurological examination did not reveal any focal deficits. SKIN: No rashes. - Labs CBC & Chem 7: 08/27/20 06:03 08/27/20 06:03 Labs: Abnormal Lab Results - Last 24 Hours (Table) 08/26/20 08/26/20 08/27/20 Range/Units 15:49 23:47 06:03 RBC 2.50 L 2.29 L (3.80-5.40) m/uL Hgb 7.7 L 7.2 L (11.4-16.0) gm/dL Hct 22.7 L 21.1 L (34.0-46.0) % Plt Count 122 L 116 L (150-450) k/uL Sodium (137-145) mmol/L Calcium (8.4-10.2) mg/dL Crossmatch See Detail 08/27/20 Range/Units 06:03 RBC (3.80-5.40) m/uL Hgb (11.4-16.0) gm/dL Hct (34.0-46.0) % Plt Count (150-450) k/uL Sodium 133 L (137-145) mmol/L Calcium 7.4 L (8.4-10.2) mg/dL Crossmatch Assessment and Plan Plan: -Acute the upper GI bleed: Patient had an upper GI endoscopy with the above- mentioned results and patient decided an Endo Clip will be monitored one more night, started on full liquid diet will be addressed by tomorrow morning Continue with IV Protonix IV fluids. -Acute blood loss anemia from upper GI bleed -Hypovolemic hyponatremia: Patient will be continued on IV fluids will increase the fluids to 100 mL/h -Tachycardia secondary to GI bleed -History of Gilbert's and Raynaud's syndrome. Nicotine cessation counseling was provided -Bipolar disorder
[2020-08-27 14:30] LABS: Basophils % (A) 0 %; Eosinophils # (A) 0.1 k/uL (0-0.7); Eosinophils % (A) 1 %; HCT 25.2 % (34.0-46.0); HGB 8.6 gm/dL (11.4-16.0); Lymphocytes # (A) 3.8 k/uL (1.0-4.8); Lymphocytes % (A) 41 %; MCHC 34.1 g/dL (31.0-37.0); MCV 93.9 fL (80.0-100.0); Mean Platelet Volume 8.5; Monocytes # (A) 0.5 k/uL (0-1.0); Monocytes % (A) 5 %; Neutrophils # (A) 4.7 k/uL (1.3-7.7); Neutrophils % (A) 51 %; Platelet Count 124 k/uL (150-450); RBC 2.68 m/uL (3.80-5.40); RDW 13.1 % (11.5-15.5); WBC 9.3 k/uL (3.8-10.6)
[2020-08-27] MEDS ORDERED: NICOTINE 21MG/24HR PATCH TRANSDERM STA (14:52)
[2020-08-27] MEDS ORDERED: ONDANSETRON 4 MG/2 ML VIAL IVP SCH (16:00)
== END 2020-08-27 15:06 | disposition left against medical advice (07) | DRG 381 ==
LOC: EC 07:29 → 3SCARD 07:51
PROVIDERS: ADMIT Hospitalist; ATTEND Hospitalist
PROC: 30233N1 Transfusion of Nonautologous Red Blood Cells into Peripheral Vein, Percutaneous Approach (ICD-10-PCS; principal; 2020-08-27 10:30)
PROC: 0DB78ZX Excision of Stomach, Pylorus, Via Natural or Artificial Opening Endoscopic, Diagnostic (ICD-10-PCS; principal; 2020-08-27 10:30)
PROC: 0DB98ZX Excision of Duodenum, Via Natural or Artificial Opening Endoscopic, Diagnostic (ICD-10-PCS; principal; 2020-08-27 10:30)
PROC: 0W3P8ZZ Control Bleeding in Gastrointestinal Tract, Via Natural or Artificial Opening Endoscopic (ICD-10-PCS; principal; 2020-08-27 10:30)
DX: K22.11 Ulcer of esophagus with bleeding (principal); D62 Acute posthemorrhagic anemia; E87.1 Hypo-osmolality and hyponatremia; E72.53 Primary hyperoxaluria; K29.71 Gastritis, unspecified, with bleeding; I73.00 Raynaud's syndrome without gangrene; I10 Essential (primary) hypertension; F31.9 Bipolar disorder, unspecified; F41.9 Anxiety disorder, unspecified; E80.4 Gilbert syndrome; E86.1 Hypovolemia; D72.828 Other elevated white blood cell count; K08.89 Other specified disorders of teeth and supporting structures; Z79.899 Other long term (current) drug therapy; Z88.8 Allergy status to other drugs, medicaments and biological substances; Z90.49 Acquired absence of other specified parts of digestive tract; Z98.890 Other specified postprocedural states; Z83.3 Family history of diabetes mellitus; Z82.5 Family history of asthma and other chronic lower respiratory diseases; Z82.49 Family history of ischemic heart disease and other diseases of the circulatory system
CPT/HCPCS: 43239; 43255; 80048; 84703; 85025; 85027; 86850; 86900; 86901; 86920; 88305; 99285

== ENCOUNTER 2021-04-07 19:35 | Emergency (ER) | payer MEDICARE, OTHER ==
[2021-04-07 20:50] VITALS: TEMP 98.5
--- NOTE | 2021-04-07 23:31 | ED ---
Psych HPI - General Chief Complaint: Psychiatric Symptoms Stated Complaint: mental health Time Seen by Provider: 04/07/21 21:40 Source: patient, family, police Mode of arrival: ambulatory - Related Data Home Medications Medication Instructions Recorded Confirmed ARIPiprazole [Abilify] 15 mg PO DAILY 08/26/20 08/26/20 Divalproex ER [Depakote ER] 1,000 mg PO BID 08/26/20 08/26/20 Allergies Allergy/AdvReac Type Severity Reaction Status Date / Time bupropion HCl Allergy Rash/Hives Verified 04/07/21 20:50 [From Wellbutrin] vortioxetine Allergy Unknown Verified 04/07/21 20:50 [From Trintellix] citalopram hydrobromide AdvReac manic Verified 04/07/21 20:50 [From Celexa] duloxetine HCl AdvReac manic Verified 04/07/21 20:50 [From Cymbalta] escitalopram oxalate AdvReac manic Verified 04/07/21 20:50 [From Lexapro] Review of Systems ROS Statement: Those systems with pertinent positive or pertinent negative responses have been documented in the HPI. ROS Other: All systems not noted in ROS Statement are negative. Past Medical History Past Medical History: Hypertension Additional Past Medical History / Comment(s): Gilbert's syndrome, Raynaud syndrome, IBS. Obstetric history: First was a vaginal delivery at 32 weeks. This is her second . She's had care with me since the first trimester. Blood type B positive, amylase negative, rubella low immune, RPR nonreactive, hepatitis B negative, HIV nonreactive. She did see maternal medicine due to history of Depakote exposure and history of deliveries. She was found progesterone injections weekly. Anatomy ultrasound and echo were normal. History of Any Multi-Drug Resistant Organisms: None Reported Past Surgical History: Cholecystectomy, Orthopedic Surgery Additional Past Surgical History / Comment(s): Left ring finger surgery; leep procedure Past Anesthesia/Blood Transfusion Reactions: No Reported Reaction Past Psychological History: Anxiety, Bipolar Smoking Status: Current every day smoker Past Alcohol Use History: None Reported Past Drug Use History: Marijuana - Past Family History Father Family Medical History: COPD, Coronary Artery Disease (CAD) Additional Family Medical History / Comment(s): Father is alive with history of CAD and COPD Mother Family Medical History: Diabetes Mellitus, Hypertension Additional Family Medical History / Comment(s): Mother is alive with history of DM and HTN. Brother(s) Additional Family Medical History / Comment(s): Patient has 5 siblings with no major medical problems. General Exam Limitations: no limitations Course Vital Signs 04/07/21 04/08/21 20:46 00:00 Temperature 98.5 F Pulse Rate 116 H 78 Respiratory 20 18 Rate Blood Pressure 136/91 128/79 O2 Sat by Pulse 97 98 Oximetry Disposition Clinical Impression: Depression Disposition: HOME SELF-CARE Condition: Fair Instructions (If sedation given, give patient instructions): Depression (ED) Is patient prescribed a controlled substance at d/c from ED?: No Referrals: Saleem Huston MD [Primary Care Provider] - 1-2 days
[2021-04-08 00:34] VITALS: RESP 18
[2021-04-08 04:48] VITALS: BP 122/81; PULSE 68
== END 2021-04-08 04:48 | disposition home or self-care (01) ==
LOC: EC 19:35
DX: F32.9 Major depressive disorder, single episode, unspecified (principal); I10 Essential (primary) hypertension; Z90.49 Acquired absence of other specified parts of digestive tract; F17.200 Nicotine dependence, unspecified, uncomplicated; F12.90 Cannabis use, unspecified, uncomplicated
CPT/HCPCS: 99284

== ENCOUNTER 2022-01-12 13:11 | Emergency (ER) | payer MEDICARE, OTHER ==
[2022-01-12 13:16] VITALS: BP 142/85; RESP 16; TEMP 97.2
[2022-01-12 13:25] VITALS: PULSE 81
--- NOTE | 2022-01-12 13:50 | XR ---
Left ankle. HISTORY: Pain following trauma 2 weeks prior. COMPARISON: None. TECHNIQUE: 3 views left ankle obtained. FINDINGS: There is no fracture, dislocation, intraosseous or intra-articular abnormality. There is no radiopaqu e foreign body or abnormal soft tissue calcification. The ankle mortise is intact. There is mild swel ling over the malleoli.. IMPRESSION: Mild soft tissue swelling but no fracture or dislocation. The ankle mortise is intact.
--- NOTE | 2022-01-12 14:24 | ED ---
General Adult HPI - General Source: patient, RN notes reviewed, old records reviewed Mode of arrival: ambulatory Limitations: no limitations <[place] - Last Filed: 01/12/22 14:22> <Ryley Hampton - Last Filed: 01/12/22 17:39> - General Chief complaint: Extremity Injury, Lower Stated complaint: Left Ankle Injury Time Seen by Provider: 01/12/22 13:15 - History of Present Illness Initial comments: this is a 31-year-old female who presents emergency department stating that she twisted her ankle about 3 weeks ago. Patient comes in because she states her ankle and foot are swollen and she wants it evaluated. friend states that he brought her in because she is in a manic state which she has been in before and she hasn't slept in days and is not eating and she is hyperverbal. Patient denies any suicidal homicidal behavior. According to the boyfriend the patient doesn't want drugs. Patient denies any fever chills. Patient states she has wrapped it with an Fred wrap and that might have been the recent swollen but she also has fallen asleep multiple times with her foot hanging over the edge of a chair, per the boyfriend ([place]) - Related Data Home Medications Medication Instructions Recorded Confirmed ARIPiprazole [Abilify] 15 mg PO DAILY 08/26/20 08/26/20 Divalproex ER [Depakote ER] 1,000 mg PO BID 08/26/20 08/26/20 Allergies Allergy/AdvReac Type Severity Reaction Status Date / Time bupropion HCl Allergy Rash/Hives Verified 01/12/22 13:16 [From Wellbutrin] vortioxetine Allergy Unknown Verified 01/12/22 13:16 [From Trintellix] citalopram hydrobromide AdvReac manic Verified 01/12/22 13:16 [From Celexa] duloxetine HCl AdvReac manic Verified 01/12/22 13:16 [From Cymbalta] escitalopram oxalate AdvReac manic Verified 01/12/22 13:16 [From Lexapro] Review of Systems ROS Other: All systems not noted in ROS Statement are negative. <[place] - Last Filed: 01/12/22 14:22> ROS Other: All systems not noted in ROS Statement are negative. <Ryley Hampton - Last Filed: 01/12/22 17:39> ROS Statement: Those systems with pertinent positive or pertinent negative responses have been documented in the HPI. Past Medical History Past Medical History: Hypertension Additional Past Medical History / Comment(s): Gilbert's syndrome, Raynaud syndrome, IBS. Obstetric history: First was a vaginal delivery at 32 weeks. This is her second . She's had care with me since the first trimester. Blood type B positive, amylase negative, rubella low immune, RPR nonreactive, hepatitis B negative, HIV nonreactive. She did see maternal medicine due to history of Depakote exposure and history of deliveries. She was found progesterone injections weekly. Anatomy ultrasound and echo were normal. History of Any Multi-Drug Resistant Organisms: None Reported Past Surgical History: Cholecystectomy, Orthopedic Surgery Additional Past Surgical History / Comment(s): Left ring finger surgery; leep procedure Past Anesthesia/Blood Transfusion Reactions: No Reported Reaction Past Psychological History: Anxiety, Bipolar Smoking Status: Current every day smoker Past Alcohol Use History: None Reported Past Drug Use History: Marijuana - Past Family History Father Family Medical History: COPD, Coronary Artery Disease (CAD) Additional Family Medical History / Comment(s): Father is alive with history of CAD and COPD Mother Family Medical History: Diabetes Mellitus, Hypertension Additional Family Medical History / Comment(s): Mother is alive with history of DM and HTN. Brother(s) Additional Family Medical History / Comment(s): Patient has 5 siblings with no major medical problems. <[place] - Last Filed: 01/12/22 14:22> General Exam Limitations: no limitations <[place] - Last Filed: 01/12/22 14:22> - General Exam Comments Initial Comments: GENERAL Patient is well-developed and well-nourished. Patient is in mild distress. EYES Patient's pupils are equal and round. Extraocular motion is intact SKIN Unremarkable NEURO The patient is alert and oriented 3 PYSCH Patient is hyperverbal and seemed very manic. MUSCULOSKELETAL Distal leg and ankle and foot are swollen patient has vague tenderness on both sides of the ankle and the foot just about anywhere I press. ([place]) Course Vital Signs 01/12/22 13:14 Temperature 97.2 F L Pulse Rate 81 Respiratory 16 Rate Blood Pressure 142/85 O2 Sat by Pulse 96 Oximetry Medical Decision Making <[place] - Last Filed: 01/12/22 14:22> <Ryley Hampton - Last Filed: 01/12/22 17:39> - Medical Decision Making Dr. Hampton be taking over the care of this patient at 3 PM ([place]) Patient appears to have dependent edema. Was evaluated by psychiatry and cleared for outpatient followup. Patient will be discharged home in fair condition. (Ryley Hampton) - Lab Data Lab Results 01/12/22 Range/Units 14:12 Urine Opiates Screen Not Detected (NotDetected) Ur Oxycodone Screen Not Detected (NotDetected) Urine Methadone Screen Not Detected (NotDetected) Ur Propoxyphene Screen Not Detected (NotDetected) Ur Barbiturates Screen Not Detected (NotDetected) U Tricyclic Antidepress Not Detected (NotDetected) Ur Phencyclidine Scrn Not Detected (NotDetected) Ur Amphetamines Screen Not Detected (NotDetected) U Methamphetamines Scrn Not Detected (NotDetected) U Benzodiazepines Scrn Detected H (NotDetected) Urine Cocaine Screen Not Detected (NotDetected) U Marijuana (THC) Screen Detected H (NotDetected) Disposition <[place] - Last Filed: 01/12/22 14:22> Is patient prescribed a controlled substance at d/c from ED?: No <Ryley Hampton - Last Filed: 01/12/22 17:39> Clinical Impression: Encounter for psychiatric assessment, Dependent edema Disposition: HOME SELF-CARE Condition: Fair Referrals: None,Stated [Primary Care Provider] - 1-2 days
[2022-01-12 14:31] LABS: Urn Cannabinoid Scrn Detected (NotDetected)
[2022-01-12 14:32] LABS: Amphetamine Screen,Urine Not Detected (NotDetected); Barbiturate Screen,Urine Not Detected (NotDetected); Benzodiazepines Screen,Urine Detected (NotDetected); Cocaine Screen,Urine Not Detected (NotDetected); Methadone Screen, Urine Not Detected (NotDetected); Opiate Screen,Urine Not Detected (NotDetected); Oxycodone Screen, Urine Not Detected (NotDetected); Phencyclidine Screen,Urine Not Detected (NotDetected); Tricyclic Antidepressant,Urine Not Detected (NotDetected)
--- NOTE | 2022-01-12 14:37 | US ---
EXAMINATION TYPE: US venous doppler duplex LE LT DATE OF EXAM: 01/12/2022 2:25 PM COMPARISON: NONE CLINICAL HISTORY: Swollen leg. SIDE PERFORMED: Left TECHNIQUE: The lower extremity deep venous system is examined utilizing real time linear array sonog eddie with graded compression, doppler sonography and color-flow sonography. VESSELS IMAGED: Common Femoral Vein Deep Femoral Vein Greater Saphenous Vein * Femoral Vein Popliteal Vein Small Saphenous Vein * Proximal Calf Veins (* superficial vessels) Left Leg: Negative for DVT IMPRESSION: No evidence of deep vein thrombosis in the left leg.
== END 2022-01-12 18:36 | disposition home or self-care (01) ==
LOC: EC 13:11
DX: Z04.6 Encounter for general psychiatric examination, requested by authority (principal); R60.9 Edema, unspecified; I10 Essential (primary) hypertension; F17.200 Nicotine dependence, unspecified, uncomplicated; Z88.5 Allergy status to narcotic agent; Z88.9 Allergy status to unspecified drugs, medicaments and biological substances; Z88.8 Allergy status to other drugs, medicaments and biological substances
CPT/HCPCS: 80306; 82075; 99284

== ENCOUNTER 2022-01-14 19:19 | Inpatient (IN) | payer MEDICARE, MEDICAID ==
--- NOTE | 2022-01-14 21:34 | ED ---
General Adult HPI - General Chief complaint: Psychiatric Symptoms Stated complaint: Mental Health Time Seen by Provider: 01/14/22 21:22 Source: patient, police, RN notes reviewed Mode of arrival: ambulatory Limitations: no limitations - History of Present Illness Initial comments: Patient is a 31-year-old female presenting to the emergency department with assistant chief of police escort secondary to a petition. Patient reportedly has been off her medications with the patient denies. Patient is also reportedly been paranoid and worried about missing babies as well as people chasing her and shooting guns at her. Patient denies all of this. Patient has no complaints and feels everything was fine. Patient denies hallucinations. Patient denies suicidal or homicidal thoughts. Patient denies alcohol or drug use - Related Data Home Medications Medication Instructions Recorded Confirmed No Known Home Medications 01/14/22 01/14/22 Allergies Allergy/AdvReac Type Severity Reaction Status Date / Time bupropion HCl Allergy Rash/Hives Verified 01/14/22 22:56 [From Wellbutrin] vortioxetine Allergy Unknown Verified 01/14/22 22:56 [From Trintellix] citalopram hydrobromide AdvReac manic Verified 01/14/22 22:56 [From Celexa] duloxetine HCl AdvReac manic Verified 01/14/22 22:56 [From Cymbalta] escitalopram oxalate AdvReac manic Verified 01/14/22 22:56 [From Lexapro] Review of Systems ROS Statement: Those systems with pertinent positive or pertinent negative responses have been documented in the HPI. ROS Other: All systems not noted in ROS Statement are negative. Constitutional: Denies: fever Eyes: Denies: eye pain ENT: Denies: ear pain Respiratory: Denies: cough Cardiovascular: Denies: chest pain Endocrine: Denies: fatigue Gastrointestinal: Denies: abdominal pain Genitourinary: Denies: dysuria Skin: Denies: rash Neurological: Denies: weakness Psychiatric: Reports: as per HPI Past Medical History Past Medical History: Hypertension Additional Past Medical History / Comment(s): Gilbert's syndrome, Raynaud syndrome, IBS. Obstetric history: First was a vaginal delivery at 32 weeks. This is her second . She's had care with me since the first trimester. Blood type B positive, amylase negative, rubella low immune, RPR nonreactive, hepatitis B negative, HIV nonreactive. She did see maternal medicine due to history of Depakote exposure and history of deliveries. She was found progesterone injections weekly. Anatomy ultrasound and echo were normal. History of Any Multi-Drug Resistant Organisms: None Reported Past Surgical History: Cholecystectomy, Orthopedic Surgery Additional Past Surgical History / Comment(s): Left ring finger surgery; leep procedure Past Anesthesia/Blood Transfusion Reactions: No Reported Reaction Past Psychological History: Anxiety, Bipolar Smoking Status: Current every day smoker Past Alcohol Use History: None Reported Past Drug Use History: Marijuana - Past Family History Father Family Medical History: COPD, Coronary Artery Disease (CAD) Additional Family Medical History / Comment(s): Father is alive with history of CAD and COPD Mother Family Medical History: Diabetes Mellitus, Hypertension Additional Family Medical History / Comment(s): Mother is alive with history of DM and HTN. Brother(s) Additional Family Medical History / Comment(s): Patient has 5 siblings with no major medical problems. General Exam Limitations: no limitations General appearance: alert Head exam: Present: normocephalic Eye exam: Present: normal appearance Respiratory exam: Present: normal lung sounds bilaterally Cardiovascular Exam: Present: regular rate, normal rhythm GI/Abdominal exam: Present: soft. Absent: tenderness Extremities exam: Present: normal inspection Neurological exam: Present: alert Expanded Focused psych exam: Present: flight of ideas Skin exam: Absent: abrasion Course Vital Signs 01/14/22 01/14/22 20:54 21:40 Temperature 97.8 F Pulse Rate 119 H 113 H Respiratory 20 18 Rate Blood Pressure 141/95 128/100 O2 Sat by Pulse 97 99 Oximetry Medical Decision Making - Medical Decision Making Patient was seen by mental health services with plans for admission. Petition reviewed. Positive clinical certificate completed. - Lab Data Lab Results 01/14/22 Range/Units 21:54 Urine Opiates Screen Not Detected (NotDetected) Ur Oxycodone Screen Not Detected (NotDetected) Urine Methadone Screen Not Detected (NotDetected) Ur Propoxyphene Screen Not Detected (NotDetected) Ur Barbiturates Screen Not Detected (NotDetected) U Tricyclic Antidepress Not Detected (NotDetected) Ur Phencyclidine Scrn Not Detected (NotDetected) Ur Amphetamines Screen Not Detected (NotDetected) U Methamphetamines Scrn Not Detected (NotDetected) U Benzodiazepines Scrn Detected H (NotDetected) Urine Cocaine Screen Not Detected (NotDetected) U Marijuana (THC) Screen Detected H (NotDetected) Disposition Clinical Impression: Acute psychosis Disposition: TRANSFER TO PSYCH HOSP/UNIT Is patient prescribed a controlled substance at d/c from ED?: No Referrals: None,Stated [Primary Care Provider] - 1-2 days Time of Disposition: 23:21
[2022-01-14 22:31] LABS: Amphetamine Screen,Urine Not Detected (NotDetected); Barbiturate Screen,Urine Not Detected (NotDetected); Benzodiazepines Screen,Urine Detected (NotDetected); Cocaine Screen,Urine Not Detected (NotDetected); Methadone Screen, Urine Not Detected (NotDetected); Opiate Screen,Urine Not Detected (NotDetected); Oxycodone Screen, Urine Not Detected (NotDetected); Phencyclidine Screen,Urine Not Detected (NotDetected); Tricyclic Antidepressant,Urine Not Detected (NotDetected); Urn Cannabinoid Scrn Detected (NotDetected)
[2022-01-14] MEDS ORDERED: HALOPERIDOL LACTATE 5 MG/ML 1 ML VIAL IM STA (23:53)
[2022-01-14] MEDS ORDERED: LORazepam 2 MG/ML INJ IM STA (23:53)
[2022-01-15 02:06] LABS: Appearance,Urine Turbid (Clear); Bacteria,Urine Many /hpf; Bilirubin,Urine Negative (Negative); Blood,Urine Negative (Negative); Calcium Oxalate Crystals,Urine Occasional /hpf; Color,Urine Yellow; Glucose,Urine (UA) Negative (Negative); Hyaline Casts,Urine 9 /lpf (0-2); Ketones,Urine 2+ (Negative); Leukocyte Esterase,Urine Negative (Negative); Mucus,Urine Moderate /hpf; Nitrite,Urine Negative (Negative); Protein,Urine 1+ (Negative); RBC,Urine 1 /hpf (0-5); Specific Gravity,Urine 1.027 (1.001-1.035); Squamous Epithelial Cell,Urine 2 /hpf (0-4); WBC,Urine 3 /hpf (0-5)
[2022-01-15 02:21] LABS: Basophils % (A) 0 %; Eosinophils % (A) 0 %; HCT 43.6 % (34.0-46.0); HGB 14.6 gm/dL (11.4-16.0); Lymphocytes # (A) 2.9 k/uL (1.0-4.8); Lymphocytes % (A) 31 %; MCH 31.2 pg (25.0-35.0); MCHC 33.5 g/dL (31.0-37.0); Mean Platelet Volume 7.9; Monocytes # (A) 0.7 k/uL (0-1.0); Monocytes % (A) 7 %; Neutrophils # (A) 5.5 k/uL (1.3-7.7); Neutrophils % (A) 59 %; Platelet Count 251 k/uL (150-450); RBC 4.69 m/uL (3.80-5.40); RDW 12.2 % (11.5-15.5); WBC 9.4 k/uL (3.8-10.6)
[2022-01-15 02:27] LABS: ALT 16 U/L (4-34); AST 22 U/L (14-36); African American GFR (CKD) >90 (>60 ml/min/1.73 sqM); Albumin 4.2 g/dL (3.5-5.0); Alkaline Phosphatase 193 U/L (38-126); Anion Gap 8 mmol/L; Blood Urea Nitrogen 7 mg/dL (7-17); Calcium 9.2 mg/dL (8.4-10.2); Carbon Dioxide 23 mmol/L (22-30); Chloride 106 mmol/L (98-107); Glucose 97 mg/dL (74-99); Non-African American GFR(CKD) >90 (>60 ml/min/1.73 sqM); Potassium 3.9 mmol/L (3.5-5.1); Sodium 137 mmol/L (137-145); Total Bilirubin 1.2 mg/dL (0.2-1.3); Total Protein 7.3 g/dL (6.3-8.2)
[2022-01-15] MEDS ORDERED: LORazepam 1 MG TAB PO STA (07:58)
[2022-01-15] MEDS ORDERED: diphenhydrAMINE 25 MG CAP PO STA (21:30)
[2022-01-16] MEDS ORDERED: ACETAMINOPHEN TAB 325 MG TAB PO PRN (16:59)
[2022-01-16] MEDS ORDERED: MAGNESIUM HYDROXIDE 2,400 MG/10 ML CUP PO PRN (16:59)
[2022-01-16] MEDS ORDERED: MAG HYDROX/AL HYDROX/SIMETH 30 ML CUP PO PRN (16:59)
[2022-01-16] MEDS ORDERED: traZODone HCL 50 MG TAB PO PRN (17:03)
[2022-01-16] MEDS ORDERED: OLANZapine 10 MG VIAL IM PRN (17:03)
[2022-01-16] MEDS ORDERED: OLANZapine 5 MG TAB PO PRN (17:03)
[2022-01-16] MEDS: NICOTINE 14MG/24HR PATCH TRANSDERM SCH (18:18)
[2022-01-17 09:07] LABS: Chol/HDL Ratio 3.04 Ratio; LDL Cholesterol,Calculated 82.8 mg/dL (0.0-131.0)
[2022-01-17] MEDS: NICOTINE 14MG/24HR PATCH TRANSDERM SCH (09:16)
[2022-01-17] MEDS ORDERED: flUPHENAZine 2.5 MG/ML (MDV) 10 ML VIAL IM PRN (12:16)
[2022-01-17] MEDS ORDERED: LORazepam 2 MG/ML INJ IM PRN (12:17)
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
--- NOTE | 2022-01-17 22:31 | P.MDCNMH ---
History of Present Illness H&P Date: 01/17/22 Chief Complaint: Medical evaluation 31-year-old female with history of Gilbert's syndrome, Raynaud's Patient comes in petitioned by police due to delusional thoughts. Currently she denies any medical concerns except for left ankle edema she claims that she twisted her ankle about a month ago while walking. She denies any difficulties with walking or weightbearing at this time. Denies any pain. However she does notice some significant swelling around the ankle but gets worse toward the end of the day. Otherwise she denies any fevers chills coughing trouble breathing chest pain nausea vomiting or any changes in her bowel or urinary habits She denies any excessive alcohol intake, she admits to occasional wheat smoking, and tobacco smoking. Review of Systems Pertinent positives as noted in HPI. All other systems were reviewed and are negative Past Medical History Past Medical History: Hypertension Additional Past Medical History / Comment(s): Gilbert's syndrome, Raynaud syndrome, IBS. Obstetric history: First was a vaginal delivery at 32 weeks. This is her second . She's had care with me since the first trimester. Blood type B positive, amylase negative, rubella low immune, RPR nonreactive, hepatitis B negative, HIV nonreactive. She did see maternal medicine due to history of Depakote exposure and history of deliveries. She was found progesterone injections weekly. Anatomy ultrasound and echo were normal. History of Any Multi-Drug Resistant Organisms: None Reported Past Surgical History: Cholecystectomy, Orthopedic Surgery Additional Past Surgical History / Comment(s): Left ring finger surgery; leep procedure Past Anesthesia/Blood Transfusion Reactions: No Reported Reaction Past Psychological History: Anxiety, Bipolar Smoking Status: Current every day smoker Past Alcohol Use History: None Reported Past Drug Use History: Marijuana - Past Family History Father Family Medical History: COPD, Coronary Artery Disease (CAD) Additional Family Medical History / Comment(s): Father is alive with history of CAD and COPD Mother Family Medical History: Diabetes Mellitus, Hypertension Additional Family Medical History / Comment(s): Mother is alive with history of DM and HTN. Brother(s) Additional Family Medical History / Comment(s): Patient has 5 siblings with no major medical problems. Medications and Allergies Home Medications Medication Instructions Recorded Confirmed Type No Known Home Medications 01/14/22 01/14/22 History Allergies Allergy/AdvReac Type Severity Reaction Status Date / Time bupropion HCl Allergy Rash/Hives Verified 01/14/22 22:56 [From Wellbutrin] vortioxetine Allergy Unknown Verified 01/14/22 22:56 [From Trintellix] citalopram hydrobromide AdvReac manic Verified 01/14/22 22:56 [From Celexa] duloxetine HCl AdvReac manic Verified 01/14/22 22:56 [From Cymbalta] escitalopram oxalate AdvReac manic Verified 01/14/22 22:56 [From Lexapro] haloperidol [From Haldol] AdvReac Nausea & Verified 01/15/22 21:24 Vomiting Physical Exam Vitals: Vital Signs Temp Pulse Resp BP Pulse Ox 01/17/22 06:34 97.6 F 99 18 124/78 98 Constitutional: No acute distress, conversant, pleasant Eyes: Anicteric sclerae, moist conjunctiva, Pupils equal round reactive to light ENMT: NC/AT Oropharynx clear, no erythema, or exudates Neck: Supple, no masses, or JVD No carotid bruits No thyromegaly Lungs: Clear to auscultation Clear to percussion Normal respiratory effort, no accessory muscle use Cardiovascular: Heart regular in rate and rhythm, No murmurs, gallops, or rubs No peripheral edema Abdominal: Soft Nontender, no guarding, rebound or rigidity Abdomen moving with respiration Normoactive bowel sounds No hepatomegaly, No splenomegaly No palpable mass No abdominal wall hernia noted Skin: Normal temperature, tone, texture, turgor No induration No subcutaneous nodules No rash, lesions No ulcers Extremities: Nonpitting edema of the left ankle full range of motion intact no tenderness to palpation no ecchymosis or bruising no open wounds. No digital cyanosis No clubbing Pedal pulses intact and symmetrical Radial pulses intact and symmetrical No calf tenderness Psychiatric: Alert and oriented to person, place and time Neuro Muscles Strength 5/5 in all 4 extremities Sensation to light touch grossly present throughout Cranial nerves II-XII grossly intact No focal sensory deficits Lymphatics: no palpable cervical or supraclavicular , or inguinal lymph nodes Cranial Nerve Examination - Cranial Nerves Cranial Nerve II- Optic: Intact Cranial Nerve III- Oculomotor: Intact Cranial Nerve IV- Trochlear: Intact Cranial Nerve V- Trigeminal: Intact Cranial Nerve - Abducens: Intact Cranial Nerve VII- Facial: Intact Cranial Nerve VIII- Auditory: Intact Cranial Nerve IX- Glossopharyngeal: Intact Cranial Nerve X- Vagus: Intact Cranial Nerve XI- Accessory: Intact Cranial Nerve XII- Hypoglossal: Intact Results CBC & Chem 7: 01/15/22 01:41 01/15/22 01:41 Assessment and Plan Assessment: Delusional thoughts Management psych Left ankle sprain with edema Motrin 800 mg 3 times a day for 5 days PPI daily Elevate the limb when possible and avoid excessive walking When discharged from the hospital patient can consider a wrapping of the ankle Labs reviewed overall unremarkable Thank you for allowing us to participate in the care of this patient. We will follow peripherally. Do not hesitate to contact us with questions. Someone can be reached from the [facility] hospitalist group at all hours of the day at [phone].
[2022-01-17] MEDS: IBUPROFEN 800 MG TAB PO SCH (23:45)
[2022-01-17] MEDS: PANTOPRAZOLE 40 MG TABLET PO SCH (23:47)
[2022-01-18] MEDS: NICOTINE 14MG/24HR PATCH TRANSDERM SCH (08:06)
[2022-01-18] MEDS: PANTOPRAZOLE 40 MG TABLET PO SCH (08:07)
[2022-01-18] MEDS: IBUPROFEN 800 MG TAB PO SCH ×3 (08:08→22:00)
[2022-01-18] MEDS ORDERED: chlorproMAZINE 25 MG TAB PO PRN (10:47)
[2022-01-18] MEDS ORDERED: chlorproMAZINE 25 MG/ML 2 ML AMP IM PRN (10:47)
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
[2022-01-18] MEDS ORDERED: DIVALPROEX 500 MG TABLET.DR PO SCH (21:00)
[2022-01-18] MEDS: MELATONIN 3 MG TABLET PO SCH (21:15)
[2022-01-18] MEDS: risperiDONE 2 MG TAB PO SCH (21:15)
[2022-01-19] MEDS ORDERED: LORazepam 1 MG TAB PO PRN (06:06)
[2022-01-19] MEDS: IBUPROFEN 800 MG TAB PO SCH ×3 (09:09→22:00)
[2022-01-19] MEDS: PANTOPRAZOLE 40 MG TABLET PO SCH (09:09)
[2022-01-19] MEDS: risperiDONE 2 MG TAB PO SCH (09:09)
--- NOTE | 2022-01-19 11:13 | P.PN ---
Progress Note - Text Progress Note Date: 01/19/22 Interval History: Patient was seen wandering the hallways and was not directable or agreeable to speak with senior writer . She stated that she is not ready to talk to me. She is wandering around the hallways and does not stop going to a particular patient's room. She thinks that he is the presence. She is walking around with a bedsheet wrapped around her body. She is staying constantly on the phone and talking in nonsensical.. At this time patient denies any suicidal or homical ideations, intent or plan. Patient denies any auditory, visual hallucinations and denies any paranoia or delusions. Patient denies any side effects from the medications and has been compliant with meds. Mental Status Exam: General Appearance: Patient appears to be stated age is alert, directable, and cooperative. Behavior: Patient is calmly seated without any agitated behavior. Speech: Patient's speech is fluent and nonpressured. Mood/Affect: Mood is improving mildly, affect is congruent and constricted. Suicidality/Homicidality: Patient denies having any suicidal or homicidal idea tion intent or plan. Perceptions: Patient denies any visual hallucinations and denies any auditory hallucinations Though content/process: There is no evidence of any delusional thought content and thought process is linear and goal-directed. Memory and concentration: AOX3, grossly intact for the purposes of this session Judgment and insight: Improving mildly Assessment Patient is a grossly psychotic and out of touch with reality. Plan: -Patient continues to meet criteria for inpatient psychiatric admission for symptom stabilization and safety. -Medications: Continue medication as before. -When necessary Ativan and Haldol for agitation/aggression. -SW on board for discharge planning. Encouraged the patient to participate in milieu.
[2022-01-19] MEDS: MELATONIN 3 MG TABLET PO SCH (21:28)
[2022-01-19] MEDS: DIVALPROEX 500 MG TABLET.DR PO SCH (21:28)
[2022-01-19] MEDS: risperiDONE 1 MG TAB PO SCH (21:28)
[2022-01-20 06:55] VITALS: RESP 18
[2022-01-20] MEDS: risperiDONE 1 MG TAB PO SCH ×2 (07:45→20:32)
[2022-01-20] MEDS: IBUPROFEN 800 MG TAB PO SCH ×3 (07:46→20:32)
[2022-01-20] MEDS: PANTOPRAZOLE 40 MG TABLET PO SCH (07:46)
--- NOTE | 2022-01-20 11:13 | P.PN ---
Progress Note - Text Progress Note Date: 01/20/22 Interval History: Patient was seen wandering the hallways and was directable and agreeable to speak with teletypewriter operator. She is less manic and less allowed compared to yesterday. She still has flight of ideas and pressured speech. She is dressed appropriately today.. At this time patient denies any suicidal or homical ideations, intent or plan. Patient denies any auditory, visual hallucinations and denies any paranoia or delusions. Patient denies any side effects from the medications and has been compliant with meds. Mental Status Exam: General Appearance: Patient appears to be stated age is alert, directable, and cooperative. Behavior: Patient is calmly seated without any agitated behavior. Speech: Patient's speech is fluent and pressured. Mood/Affect: Mood is improving mildly, affect is congruent and constricted. Suicidality/Homicidality: Patient denies having any suicidal or homicidal ideation intent or plan. Perceptions: Patient denies any visual hallucinations and denies any auditory hallucinations Though content/process: There is no evidence of any delusional thought content and thought process is linear and goal-directed. Memory and concentration: AOX3, grossly intact for the purposes of this session Judgment and insight: Improving mildly Assessment Patient continues to show symptoms of breanna however they are less than before. Plan: -Patient continues to meet criteria for inpatient psychiatric admission for symptom stabilization and safety. -Medications: Continue medication as before. -When necessary Ativan and Haldol for agitation/aggression. -SW on board for discharge planning. Encouraged the patient to participate in milieu.
[2022-01-20] MEDS: MELATONIN 3 MG TABLET PO SCH (20:32)
[2022-01-20] MEDS: DIVALPROEX 500 MG TABLET.DR PO SCH (20:32)
[2022-01-21] MEDS: PANTOPRAZOLE 40 MG TABLET PO SCH (08:42)
[2022-01-21] MEDS: IBUPROFEN 800 MG TAB PO SCH ×2 (08:42→17:46)
[2022-01-21] MEDS: risperiDONE 1 MG TAB PO SCH (09:07)
--- NOTE | 2022-01-21 11:43 | P.PN ---
Progress Note - Text Progress Note Date: 01/21/22 Interval History: Patient was seen wandering the hallways and was directable and agreeable to speak with check writer in the office. The patient continues to present with pressured speech however is much better linear and logical conversation. She has been noted by staff to kids and making bizarre statements but has been redirectable. She has been refusing her Depakote but taken her Risperdal. The patient believes that she does not require Depakote. The patient was noted by staff to sleep last night. She continues to be somewhat intrusive with staff and peers however is always redirectable. She does not endorse any significant side effects of her Risperdal. She denies any suicidal or homicidal ideation, intention, and/or plan. She is denying any auditory or visual hallucinations. She reports no paranoia or other delusions. Mental Status Exam: General Appearance: Patient appears to be stated age is alert, difficult to direct, and cooperative. Behavior: Patient displays elevated psychomotor activity. She continues to pace and has difficulty sitting still. Speech: Patient's speech is pressured and however much more interruptible today. Mood/Affect: Mood is "Doing good!" Affect is expansive but less intense and less labile. Suicidality/Homicidality: Patient denies having any suicidal or homicidal ideation intent or plan. Perceptions: Patient denies any visual hallucinations and denies any auditory hallucinations Though content/process: The patient has been noted to endorse some bizarre and grandiose delusions to staff however is overtly denying any delusions or abnormal thought content was provider. Memory and concentration: AOX3, concentration appears to be improving Judgment and insight: Mildly improving Vital Signs Temp 98.8 F 01/21/22 07:07 Pulse 93 01/21/22 07:07 Resp 18 01/20/22 06:54 BP 121/72 01/21/22 07:07 Pulse Ox 97 01/21/22 07:07 Intake & Output 01/20/22 01/21/22 01/21/22 18:59 06:59 18:59 Weight 79.7 kg Assessment Bipolar 1 disorder, manic episode, with psychotic features Cannabis use disorder Rule out PTSD Nicotine dependence Plan: -Patient continues to meet criteria for inpatient psychiatric admission for symptom stabilization and safety. Patient has signed adult voluntary form and medication consent and was placed in patient's chart. -Medications: Increase Risperdal to 4 mg by mouth twice a day for acute breanna/psychosis Will continue to offer Depakote to the patient. -When necessary Ativan and Thorazine for agitation/aggression. -NRT - nicotine patch -SW on board for discharge planning. Encouraged the patient to participate in milieu.
[2022-01-21] MEDS: DIVALPROEX 500 MG TABLET.DR PO SCH (21:00)
[2022-01-21] MEDS: risperiDONE 2 MG TAB PO SCH (21:01)
[2022-01-21] MEDS: MELATONIN 3 MG TABLET PO SCH (21:01)
[2022-01-22 07:11] VITALS: BP 122/77; PULSE 104; TEMP 97.5
[2022-01-22] MEDS: risperiDONE 2 MG TAB PO SCH (08:49)
[2022-01-22] MEDS: PANTOPRAZOLE 40 MG TABLET PO SCH (08:50)
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
== END 2022-01-22 13:10 | disposition home or self-care (01) | DRG 885 ==
LOC: EC 19:19 → 3MHU 01-16 16:48
PROVIDERS: ADMIT Psychiatry & Neurology Psychiatry; ATTEND Psychiatry & Neurology Psychiatry
DX: F31.2 Bipolar disorder, current episode manic severe with psychotic features (principal); E80.4 Gilbert syndrome; F14.11 Cocaine abuse, in remission; Z20.822 Contact with and (suspected) exposure to COVID-19; I10 Essential (primary) hypertension; S93.402A Sprain of unspecified ligament of left ankle, initial encounter; I73.00 Raynaud's syndrome without gangrene; K58.9 Irritable bowel syndrome, unspecified; F12.20 Cannabis dependence, uncomplicated; F43.10 Post-traumatic stress disorder, unspecified; G47.00 Insomnia, unspecified; F10.10 Alcohol abuse, uncomplicated; Z90.49 Acquired absence of other specified parts of digestive tract; F17.210 Nicotine dependence, cigarettes, uncomplicated; Z87.19 Personal history of other diseases of the digestive system; Z87.39 Personal history of other diseases of the musculoskeletal system and connective tissue; Z87.42 Personal history of other diseases of the female genital tract; Z56.0 Unemployment, unspecified; Z91.51 Personal history of suicidal behavior; Z98.890 Other specified postprocedural states; Z71.41 Alcohol abuse counseling and surveillance of alcoholic; Z71.51 Drug abuse counseling and surveillance of drug abuser; W18.40XA Slipping, tripping and stumbling without falling, unspecified, initial encounter; Z88.1 Allergy status to other antibiotic agents; Z88.8 Allergy status to other drugs, medicaments and biological substances; Z82.5 Family history of asthma and other chronic lower respiratory diseases; Z82.49 Family history of ischemic heart disease and other diseases of the circulatory system; Z83.3 Family history of diabetes mellitus
CPT/HCPCS: 36415; 80053; 80061; 80306; 81001; 81025; 82075; 83036; 84443; 85025; 87635; 96372; 99284; 99285

== ENCOUNTER 2022-03-06 16:29 | Inpatient (IN) | payer MEDICARE, MEDICAID ==
--- NOTE | 2022-03-06 17:59 | ED ---
General Adult HPI - General Source: patient Mode of arrival: ambulatory Limitations: no limitations <Vern Chand - Last Filed: 03/06/22 17:59> <[place] - Last Filed: 03/07/22 21:30> - General Chief complaint: Psychiatric Symptoms Stated complaint: EPS eval Time Seen by Provider: 03/06/22 17:23 - History of Present Illness Initial comments: Dictation was produced using [employer] dictation software. please excuse any grammatical, word or spelling errors. Chief Complaint: 31-year-old female presents with suicidal ideation History of Present Illness: 31-year-old female presents to the emergency Department for suicidal ideation. Patient states she just was discharged from [facility] [place], operated by [facility]. States she feels like she shouldn't have been discharged. She states she is ALLERGIC to Haldol however ended up receiving some Haldol. Regardless she states she is still feeling suicidal. She doesn't have a specific plan. Patient denies any medical complaints at this time. The ROS documented in this emergency department record has been reviewed and confirmed by me. Those systems with pertinent positive or negative responses have been documented in the HPI. All other systems are other negative and/or noncontributory. PHYSICAL EXAM: General Impression: Alert and oriented x3, not in acute distress HEENT: Normocephalic atraumatic, extra-ocular movements intact, pupils equal and reactive to light bilaterally, mucous membranes moist. Cardiovascular: Heart regular rate and rhythm Chest: Able to complete full sentences, no retractions, no tachypnea Abdomen: abdomen soft, non-tender, non-distended, no organomegaly Musculoskeletal: Pulses present and equal in all extremities, no peripheral edema Motor: no focal deficits noted Neurological: CN II-XII grossly intact, no focal motor or sensory deficits noted Skin: Intact with no visualized rashes Psych: Normal affect and mood ED course: 31-year-old female presents emergency department for psychiatric evaluation. She states she suicidal. Signs upon arrival are within acceptable limits. Physical examination is benign. Patient is no medical complaints. Patient medically cleared for EPS. (Vern Chand) - Related Data Home Medications Medication Instructions Recorded Confirmed Divalproex Sodium [Depakote] 1,500 mg PO HS 03/06/22 03/06/22 cloZAPine [Clozaril] 100 mg PO HS 03/06/22 03/06/22 haloperidoL [Haldol] 10 mg PO BID 03/06/22 03/06/22 Previous Rx's Medication Instructions Recorded Melatonin 6 mg PO HS 30 Days tablet 01/22/22 Allergies Allergy/AdvReac Type Severity Reaction Status Date / Time bupropion HCl Allergy Rash/Hives Verified 03/06/22 18:17 [From Wellbutrin] vortioxetine Allergy Unknown Verified 03/06/22 18:17 [From Trintellix] citalopram hydrobromide AdvReac manic Verified 03/06/22 18:17 [From Celexa] duloxetine HCl AdvReac manic Verified 03/06/22 18:17 [From Cymbalta] escitalopram oxalate AdvReac manic Verified 03/06/22 18:17 [From Lexapro] haloperidol [From Haldol] AdvReac Nausea & Verified 03/06/22 18:17 Vomiting Review of Systems ROS Other: All systems not noted in ROS Statement are negative. <Vern Chand - Last Filed: 03/06/22 17:59> ROS Other: All systems not noted in ROS Statement are negative. <[place] - Last Filed: 03/07/22 21:30> ROS Statement: Those systems with pertinent positive or pertinent negative responses have been documented in the HPI. Past Medical History Past Medical History: Hypertension Additional Past Medical History / Comment(s): Gilbert's syndrome, Raynaud syndrome, IBS. Obstetric history: First was a vaginal delivery at 32 weeks. This is her second . She's had care with me since the first trimester. Blood type B positive, amylase negative, rubella low immune, RPR nonreactive, hepatitis B negative, HIV nonreactive. She did see maternal medicine due to history of Depakote exposure and history of deliveries. She was found progesterone injections weekly. Anatomy ultrasound and echo were normal. History of Any Multi-Drug Resistant Organisms: None Reported Past Surgical History: Cholecystectomy, Orthopedic Surgery Additional Past Surgical History / Comment(s): Left ring finger surgery; leep procedure Past Anesthesia/Blood Transfusion Reactions: No Reported Reaction Past Psychological History: Anxiety, Bipolar Smoking Status: Current every day smoker Past Alcohol Use History: None Reported Past Drug Use History: Marijuana - Past Family History Father Family Medical History: COPD, Coronary Artery Disease (CAD) Additional Family Medical History / Comment(s): Father is alive with history of CAD and COPD Mother Family Medical History: Diabetes Mellitus, Hypertension Additional Family Medical History / Comment(s): Mother is alive with history of DM and HTN. Brother(s) Additional Family Medical History / Comment(s): Patient has 5 siblings with no major medical problems. <Vern Chand - Last Filed: 03/06/22 17:59> General Exam Limitations: no limitations <Vern Chand - Last Filed: 03/06/22 17:59> General appearance: alert, in no apparent distress Head exam: Present: atraumatic, normocephalic, normal inspection Eye exam: Present: normal appearance, PERRL, EOMI. Absent: scleral icterus, conjunctival injection, periorbital swelling ENT exam: Present: normal exam, mucous membranes moist Neck exam: Present: normal inspection. Absent: tenderness, meningismus, l ymphadenopathy Respiratory exam: Present: normal lung sounds bilaterally. Absent: respiratory distress, wheezes, rales, rhonchi, stridor Cardiovascular Exam: Present: regular rate, normal rhythm, normal heart sounds. Absent: systolic murmur, diastolic murmur, rubs, gallop, clicks GI/Abdominal exam: Present: soft, normal bowel sounds. Absent: distended, tenderness, guarding, rebound, rigid Extremities exam: Present: normal inspection, full ROM, normal capillary refill. Absent: tenderness, pedal edema, joint swelling, calf tenderness Back exam: Present: normal inspection Neurological exam: Present: alert, oriented X3, CN II-XII intact Psychiatric exam: Present: normal affect, normal mood Skin exam: Present: warm, dry, intact, normal color. Absent: rash <[place] - Last Filed: 03/07/22 21:30> Course <[place] - Last Filed: 03/07/22 21:30> Vital Signs 03/06/22 03/06/22 03/07/22 16:32 17:58 00:32 Temperature 98.2 F 97.3 F L 97.7 F Pulse Rate 111 H 107 H Pulse Rate [ 98 Right] Respiratory 18 18 20 Rate Blood Pressure 142/95 131/65 Blood Pressure 119/68 [Right Arm] O2 Sat by Pulse 100 98 Oximetry 03/07/22 01:20 Temperature 97.8 F Pulse Rate 79 Pulse Rate [ Right] Respiratory 20 Rate Blood Pressure 134/85 Blood Pressure [Right Arm] O2 Sat by Pulse 97 Oximetry - Reevaluation(s) Reevaluation #1: 03/06/22 23:09 Medical record is reviewed ([place]) Reevaluation #2: 03/06/22 23:09 Patient's medically clear for psychiatric evaluation ([place]) Medical Decision Making - Lab Data Result diagrams: 03/06/22 20:54 03/06/22 20:54 <[place] - Last Filed: 03/07/22 21:30> - Medical Decision Making 31 female has been seen and evaluated psychiatry here in the ER. Patient will be admitted for psychiatric evaluation and treatment ([place]) - Lab Data Lab Results 03/06/22 03/06/22 03/06/22 Range/Units 17:30 17:30 17:30 WBC (3.8-10.6) k/uL RBC (3.80-5.40) m/uL Hgb (11.4-16.0) gm/dL Hct (34.0-46.0) % MCV (80.0-100.0) fL MCH (25.0-35.0) pg MCHC (31.0-37.0) g/dL RDW (11.5-15.5) % Plt Count (150-450) k/uL MPV Neutrophils % % Lymphocytes % % Monocytes % % Eosinophils % % Basophils % % Neutrophils # (1.3-7.7) k/uL Lymphocytes # (1.0-4.8) k/uL Monocytes # (0-1.0) k/uL Eosinophils # (0-0.7) k/uL Basophils # (0-0.2) k/uL Sodium (137-145) mmol/L Potassium (3.5-5.1) mmol/L Chloride (98-107) mmol/L Carbon Dioxide (22-30) mmol/L Anion Gap mmol/L BUN (7-17) mg/dL Creatinine (0.52-1.04) mg/dL Est GFR (CKD-EPI)AfAm (>60 ml/min/1.73 sqM) Est GFR (CKD-EPI)NonAf (>60 ml/min/1.73 sqM) Glucose (74-99) mg/dL Calcium (8.4-10.2) mg/dL Total Bilirubin (0.2-1.3) mg/dL AST (14-36) U/L ALT (4-34) U/L Alkaline Phosphatase (38-126) U/L Total Protein (6.3-8.2) g/dL Albumin (3.5-5.0) g/dL Urine Color Yellow Urine Appearance Turbid H (Clear) Urine pH 6.0 (5.0-8.0) Ur Specific [place] 1.027 (1.001-1.035) Urine Protein Trace H (Negative) Urine Glucose (UA) Negative (Negative) Urine Ketones 1+ H (Negative) Urine Blood Negative (Negative) Urine Nitrite Negative (Negative) Urine Bilirubin Negative (Negative) Urine Urobilinogen 4.0 (<2.0) mg/dL Ur Leukocyte Esterase Negative (Negative) Urine WBC 3 (0-5) /hpf Ur Squamous Epith Cells 5 H (0-4) /hpf Amorphous Sediment Occasional H (None) /hpf Urine Mucus Few H (None) /hpf Urine HCG, Qual Not Detected (Not Detectd) Urine Opiates Screen Not Detected (NotDetected) Ur Oxycodone Screen Not Detected (NotDetected) Urine Methadone Screen Not Detected (NotDetected) Ur Propoxyphene Screen Not Detected (NotDetected) Ur Barbiturates Screen Not Detected (NotDetected) U Tricyclic Antidepress Not Detected (NotDetected) Ur Phencyclidine Scrn Not Detected (NotDetected) Ur Amphetamines Screen Not Detected (NotDetected) U Methamphetamines Scrn Not Detected (NotDetected) U Benzodiazepines Scrn Not Detected (NotDetected) Urine Cocaine Screen Not Detected (NotDetected) U Marijuana (THC) Screen Detected H (NotDetected) Coronavirus (PCR) (Not Detectd) 03/06/22 03/06/22 03/06/22 Range/Units 20:54 20:54 20:54 WBC 9.4 (3.8-10.6) k/uL RBC 4.70 (3.80-5.40) m/uL Hgb 13.8 (11.4-16.0) gm/dL Hct 42.4 (34.0-46.0) % MCV 90.1 (80.0-100.0) fL MCH 29.4 (25.0-35.0) pg MCHC 32.7 (31.0-37.0) g/dL RDW 12.2 (11.5-15.5) % Plt Count 207 (150-450) k/uL MPV 8.3 Neutrophils % 60 % Lymphocytes % 30 % Monocytes % 7 % Eosinophils % 1 % Basophils % 0 % Neutrophils # 5.6 (1.3-7.7) k/uL Lymphocytes # 2.8 (1.0-4.8) k/uL Monocytes # 0.6 (0-1.0) k/uL Eosinophils # 0.1 (0-0.7) k/uL Basophils # 0.0 (0-0.2) k/uL Sodium 137 (137-145) mmol/L Potassium 4.2 (3.5-5.1) mmol/L Chloride 103 (98-107) mmol/L Carbon Dioxide 29 (22-30) mmol/L Anion Gap 5 mmol/L BUN 7 (7-17) mg/dL Creatinine 0.66 (0.52-1.04) mg/dL Est GFR (CKD-EPI)AfAm >90 (>60 ml/min/1.73 sqM) Est GFR (CKD-EPI)NonAf >90 (>60 ml/min/1.73 sqM) Glucose 91 (74-99) mg/dL Calcium 8.8 (8.4-10.2) mg/dL Total Bilirubin 0.8 (0.2-1.3) mg/dL AST 24 (14-36) U/L ALT 19 (4-34) U/L Alkaline Phosphatase 121 (38-126) U/L Total Protein 6.8 (6.3-8.2) g/dL Albumin 3.9 (3.5-5.0) g/dL Urine Color Urine Appearance (Clear) Urine pH (5.0-8.0) Ur Specific [place] (1.001-1.035) Urine Protein (Negative) Urine Glucose (UA) (Negative) Urine Ketones (Negative) Urine Blood (Negative) Urine Nitrite (Negative) Urine Bilirubin (Negative) Urine Urobilinogen (<2.0) mg/dL Ur Leukocyte Esterase (Negative) Urine WBC (0-5) /hpf Ur Squamous Epith Cells (0-4) /hpf Amorphous Sediment (None) /hpf Urine Mucus (None) /hpf Urine HCG, Qual (Not Detectd) Urine Opiates Screen (NotDetected) Ur Oxycodone Screen (NotDetected) Urine Methadone Screen (NotDetected) Ur Propoxyphene Screen (NotDetected) Ur Barbiturates Screen (NotDetected) U Tricyclic Antidepress (NotDetected) Ur Phencyclidine Scrn (NotDetected) Ur Amphetamines Screen (NotDetected) U Methamphetamines Scrn (NotDetected) U Benzodiazepines Scrn (NotDetected) Urine Cocaine Screen (NotDetected) U Marijuana (THC) Screen (NotDetected) Coronavirus (PCR) Not Detected (Not Detectd) Disposition <Vern Chand D - Last Filed: 03/06/22 17:59> Is patient prescribed a controlled substance at d/c from ED?: No <[place] - Last Filed: 03/07/22 21:30> Clinical Impression: Depression, Acute anxiety, Acute psychosis, Suicidal ideation, Bipolar disorder Disposition: TRANSFER TO PSYCH HOSP/UNIT Condition: Fair
[2022-03-06] MEDS ORDERED: LORazepam 1 MG TAB PO STA (18:38)
[2022-03-06 21:11] LABS: Amorphous Sediment,Urine Occasional /hpf; Appearance,Urine Turbid (Clear); Bilirubin,Urine Negative (Negative); Blood,Urine Negative (Negative); Color,Urine Yellow; Glucose,Urine (UA) Negative (Negative); Ketones,Urine 1+ (Negative); Leukocyte Esterase,Urine Negative (Negative); Mucus,Urine Few /hpf; Nitrite,Urine Negative (Negative); Protein,Urine Trace (Negative); Specific Gravity,Urine 1.027 (1.001-1.035); Squamous Epithelial Cell,Urine 5 /hpf (0-4); WBC,Urine 3 /hpf (0-5)
[2022-03-06 21:24] LABS: Amphetamine Screen,Urine Not Detected (NotDetected); Barbiturate Screen,Urine Not Detected (NotDetected); Benzodiazepines Screen,Urine Not Detected (NotDetected); Cocaine Screen,Urine Not Detected (NotDetected); Methadone Screen, Urine Not Detected (NotDetected); Opiate Screen,Urine Not Detected (NotDetected); Oxycodone Screen, Urine Not Detected (NotDetected); Phencyclidine Screen,Urine Not Detected (NotDetected); Tricyclic Antidepressant,Urine Not Detected (NotDetected); Urn Cannabinoid Scrn Detected (NotDetected)
[2022-03-06 21:30] LABS: Basophils % (A) 0 %; Eosinophils # (A) 0.1 k/uL (0-0.7); Eosinophils % (A) 1 %; HCT 42.4 % (34.0-46.0); HGB 13.8 gm/dL (11.4-16.0); Lymphocytes # (A) 2.8 k/uL (1.0-4.8); Lymphocytes % (A) 30 %; MCH 29.4 pg (25.0-35.0); MCHC 32.7 g/dL (31.0-37.0); MCV 90.1 fL (80.0-100.0); Mean Platelet Volume 8.3; Monocytes # (A) 0.6 k/uL (0-1.0); Monocytes % (A) 7 %; Neutrophils # (A) 5.6 k/uL (1.3-7.7); Neutrophils % (A) 60 %; Platelet Count 207 k/uL (150-450); RDW 12.2 % (11.5-15.5); WBC 9.4 k/uL (3.8-10.6)
[2022-03-06 21:31] LABS: ALT 19 U/L (4-34); AST 24 U/L (14-36); African American GFR (CKD) >90 (>60 ml/min/1.73 sqM); Albumin 3.9 g/dL (3.5-5.0); Alkaline Phosphatase 121 U/L (38-126); Anion Gap 5 mmol/L; Blood Urea Nitrogen 7 mg/dL (7-17); Calcium 8.8 mg/dL (8.4-10.2); Carbon Dioxide 29 mmol/L (22-30); Chloride 103 mmol/L (98-107); Glucose 91 mg/dL (74-99); Non-African American GFR(CKD) >90 (>60 ml/min/1.73 sqM); Potassium 4.2 mmol/L (3.5-5.1); Sodium 137 mmol/L (137-145); Total Bilirubin 0.8 mg/dL (0.2-1.3); Total Protein 6.8 g/dL (6.3-8.2)
[2022-03-07] MEDS ORDERED: ACETAMINOPHEN TAB 325 MG TAB PO PRN (00:37)
[2022-03-07] MEDS ORDERED: HALOPERIDOL LACTATE 5 MG/ML 1 ML VIAL IM PRN (00:37)
[2022-03-07] MEDS ORDERED: MAG HYDROX/AL HYDROX/SIMETH 30 ML CUP PO PRN (00:37)
[2022-03-07] MEDS ORDERED: MAGNESIUM HYDROXIDE 2,400 MG/10 ML CUP PO PRN (00:37)
[2022-03-07] MEDS ORDERED: LORazepam 2 MG/ML INJ IM PRN (00:56)
[2022-03-07] MEDS ORDERED: haloperidoL 5 MG TAB PO PRN (00:56)
[2022-03-07] MEDS: MELATONIN 3 MG TABLET PO SCH ×2 (01:47→20:32)
[2022-03-07] MEDS: LORazepam 1 MG TAB PO PRN ×2 (07:19→18:12)
[2022-03-07] MEDS: NICOTINE 14MG/24HR PATCH TRANSDERM SCH (07:53)
[2022-03-07] MEDS ORDERED: FLUoxetine HCL 20 MG CAP PO STA (11:05)
--- NOTE | 2022-03-07 12:53 | P.HP ---
Psychiatric H&P - . H&P Date: 03/07/22 History & Physical: Allergies Allergy/AdvReac Type Severity Reaction Status Date / Time bupropion HCl Allergy Rash/Hives Verified 03/06/22 18:17 [From Wellbutrin] vortioxetine Allergy Unknown Verified 03/06/22 18:17 [From Trintellix] citalopram hydrobromide AdvReac manic Verified 03/06/22 18:17 [From Celexa] duloxetine HCl AdvReac manic Verified 03/06/22 18:17 [From Cymbalta] escitalopram oxalate AdvReac manic Verified 03/06/22 18:17 [From Lexapro] haloperidol [From Haldol] AdvReac Nausea & Verified 03/06/22 18:17 Vomiting Vital Signs Temp 97.0 F L 03/07/22 07:21 Pulse 87 03/07/22 07:21 Resp 14 03/07/22 07:21 BP 110/65 03/07/22 07:21 Pulse Ox 97 03/07/22 01:20 Intake & Output 03/06/22 03/07/22 03/07/22 18:59 06:59 18:59 Weight 81.647 kg 79.038 kg Laboratory Last Values WBC 9.4 k/uL (3.8-10.6) 03/06/22 20:54 RBC 4.70 m/uL (3.80-5.40) 03/06/22 20:54 Hgb 13.8 gm/dL (11.4-16.0) 03/06/22 20:54 Hct 42.4 % (34.0-46.0) 03/06/22 20:54 MCV 90.1 fL (80.0-100.0) 03/06/22 20:54 MCH 29.4 pg (25.0-35.0) 03/06/22 20:54 MCHC 32.7 g/dL (31.0-37.0) 03/06/22 20:54 RDW 12.2 % (11.5-15.5) 03/06/22 20:54 Plt Count 207 k/uL (150-450) 03/06/22 20:54 MPV 8.3 03/06/22 20:54 Neutrophils % 60 % 03/06/22 20:54 Lymphocytes % 30 % 03/06/22 20:54 Monocytes % 7 % 03/06/22 20:54 Eosinophils % 1 % 03/06/22 20:54 Basophils % 0 % 03/06/22 20:54 Neutrophils # 5.6 k/uL (1.3-7.7) 03/06/22 20:54 Lymphocytes # 2.8 k/uL (1.0-4.8) 03/06/22 20:54 Monocytes # 0.6 k/uL (0-1.0) 03/06/22 20:54 Eosinophils # 0.1 k/uL (0-0.7) 03/06/22 20:54 Basophils # 0.0 k/uL (0-0.2) 03/06/22 20:54 Sodium 137 mmol/L (137-145) 03/06/22 20:54 Potassium 4.2 mmol/L (3.5-5.1) 03/06/22 20:54 Chloride 103 mmol/L (98-107) 03/06/22 20:54 Carbon Dioxide 29 mmol/L (22-30) 03/06/22 20:54 Anion Gap 5 mmol/L 03/06/22 20:54 BUN 7 mg/dL (7-17) 03/06/22 20:54 Creatinine 0.66 mg/dL (0.52-1.04) 03/06/22 20:54 Est GFR (CKD-EPI)AfAm >90 (>60 ml/min/1.73 sqM) 03/06/22 20:54 Est GFR (CKD-EPI)NonAf >90 (>60 ml/min/1.73 sqM) 03/06/22 20:54 Glucose 91 mg/dL (74-99) 03/06/22 20:54 Calcium 8.8 mg/dL (8.4-10.2) 03/06/22 20:54 Total Bilirubin 0.8 mg/dL (0.2-1.3) 03/06/22 20:54 AST 24 U/L (14-36) 03/06/22 20:54 ALT 19 U/L (4-34) 03/06/22 20:54 Alkaline Phosphatase 121 U/L (38-126) 03/06/22 20:54 Total Protein 6.8 g/dL (6.3-8.2) 03/06/22 20:54 Albumin 3.9 g/dL (3.5-5.0) 03/06/22 20:54 Urine Color Yellow 03/06/22 17:30 Urine Appearance Turbid (Clear) H 03/06/22 17:30 Urine pH 6.0 (5.0-8.0) 03/06/22 17:30 Ur Specific [place] 1.027 (1.001-1.035) 03/06/22 17:30 Urine Protein Trace (Negative) H 03/06/22 17:30 Urine Glucose (UA) Negative (Negative) 03/06/22 17:30 Urine Ketones 1+ (Negative) H 03/06/22 17:30 Urine Blood Negative (Negative) 03/06/22 17: Urine Nitrite Negative (Negative) 03/06/22 17:30 Urine Bilirubin Negative (Negative) 03/06/22 17:30 Urine Urobilinogen 4.0 mg/dL (<2.0) 03/06/22 17:30 Ur Leukocyte Esterase Negative (Negative) 03/06/22 17:30 Urine WBC 3 /hpf (0-5) 03/06/22 17:30 Ur Squamous Epith Cells 5 /hpf (0-4) H 03/06/22 17:30 Amorphous Sediment Occasional /hpf (None) H 03/06/22 17:30 Urine Mucus Few /hpf (None) H 03/06/22 17:30 Urine HCG, Qual Not Detected (Not Detectd) 03/06/22 17:30 Urine Opiates Screen Not Detected (NotDetected) 03/06/22 17:30 Ur Oxycodone Screen Not Detected (NotDetected) 03/06/22 17:30 Urine Methadone Screen Not Detected (NotDetected) 03/06/22 17:30 Ur Propoxyphene Screen Not Detected (NotDetected) 03/06/22 17:30 Ur Barbiturates Screen Not Detected (NotDetected) 03/06/22 17:30 Valproic Acid <10.0 ug/mL 03/07/22 07:22 U Tricyclic Antidepress Not Detected (NotDetected) 03/06/22 17:30 Ur Phencyclidine Scrn Not Detected (NotDetected) 03/06/22 17:30 Ur Amphetamines Screen Not Detected (NotDetected) 03/06/22 17:30 U Methamphetamines Scrn Not Detected (NotDetected) 03/06/22 17:30 U Benzodiazepines Scrn Not Detected (NotDetected) 03/06/22 17:30 Urine Cocaine Screen Not Detected (NotDetected) 03/06/22 17:30 U Marijuana (THC) Screen Detected (NotDetected) H 03/06/22 17:30 Coronavirus (PCR) Not Detected (Not Detectd) 03/06/22 20:54 03/07/22 12:53 IDENTIFYING DATA: Patient is a , unemployed, 31-year-old female with significant history of bipolar disorder presenting to the hospital for suicidal ideation. HPI: Patient presented to the hospital on 03/06/2022, brought in by law enforcement for suicidal ideation. The patient reported to the EPS nurse that she has been feeling increasingly suicidal and depressed ever since being discharged from [facility] approximately 2 weeks ago. The patient states that just before she was discharged from [facility], her informed her that he was going to divorce her. She further reports that she was placed on Haldol at [facility] and that she is ALLERGIC to this medication and has been making her feel "more depressed and restless." Despite her suicidal ideation, the patient reports no intention or plan at this time. She reports that she did not attempt. She is currently denying any homicidal ideation, intention, and/or plan. She does report significant symptoms of hopelessness, helplessness, and "feeling like my life is a wreck." The patient is currently denying any significant symptoms of psychosis or breanna at this time. She does report that she had some difficulty with sleep over the past few days however is not reporting any excessive energy, grandiosity, racing thoughts, or mood lability. During her last admission, the patient was endorsing significant delusional thoughts however is not endorsing any delusional thought content today. She is not reporting any bizarre grandiose delusions. While at [facility], the patient was administered Haldol Decanoate 100 mg IM. She was also discharged on a regimen of Haldol 10 mg by mouth twice a day, Clozaril 100 mg by mouth at bedtime, and Depakote 1500 mg by mouth at bedtime. Aside from her feelings of restlessness, the patient reports no other issues regarding these medications. She is reports that she does not like the Haldol as she does not feel like she is able to focus or be as energetic as before. The patient was educated that when she is not in a manic state, feeling normal would feel depressed by comparison to her breanna. The patient signed herself voluntarily into the psychiatric unit. PAST PSYCHIATRIC HISTORY: Patient states that she has been his diagnoses of bipolar disorder. Patient has trialed numerous psychiatric medications and was most recently on Haldol Decanoate, Haldol, Clozaril, and Depakote. She was last hospitalized at [facility] for approximately one month and was discharged 2 weeks ago. She is currently open with [facility] however states that she does not want to continue there. She does report a history of 3 prior suicide attempts in the past. PMH: Past Medical History: Hypertension Additional Past Medical History / Comment(s): Gilbert's syndrome, Raynaud syndrome, IBS. Obstetric history: First was a vaginal delivery at 32 weeks. This is her second . She's had care with me since the first trimester. Blood type B positive, amylase negative, rubella low immune, RPR nonreactive, hepatitis B negative, HIV nonreactive. She did see maternal medicine due to history of Depakote exposure and history of deliveries. She was found progesterone injections weekly. Anatomy ultrasound and echo were normal. History of Any Multi-Drug Resistant Organisms: None Reported Past Surgical History: Cholecystectomy, Orthopedic Surgery Additional Past Surgical History / Comment(s): Left ring finger surgery; leep procedure Past Anesthesia/Blood Transfusion Reactions: No Reported Reaction Past Psychological History: Anxiety, Bipolar Smoking Status: Current every day smoker Past Alcohol Use History: None Reported Past Drug Use History: Marijuana ALLERGIES: Wellbutrin, Trintellix, Celexa, Cymbalta, and Lexapro. CHEMICAL DEPENDENCY HISTORY: Patient uses marijuana twice per week. She denies any alcohol or illicit drug use. History of binge alcohol use disorder. Remote history of cocaine use. Denies any other illicit drug use. She reports 1 pack per day of tobacco use. FAMILY PSYCHIATRIC/SUBSTANCE USE HISTORY: She reports her mother has bipolar disorder. No family history of suicide. Multiple family members with addiction issues. SOCIAL HISTORY: Patient currently lives with her mother and brother. She reports that her has moved out of the home. She has 2 sons ages 2 and 4 currently live with their father. She wishes to go to [facility] for long-term residential psychiatric treatment. MENTAL STATUS EXAM: General Appearance: Patient appears to be stated age is alert, directable, and attempts to cooperate. Patient appears to have fair hygiene and grooming. Behavior: Patient is seated without any agitated behavior. Contact is appropriate. Psychomotor activity appears normal. Speech: Patient's speech is fluent and nonpressured. Mood/Affect: Patient reports their mood is depressed, affect is congruent and constricted. Suicidality/Homicidality: Patient denies any suicidal or homicidal ideation. Perceptions: Patient denies any visual hallucinations and denies any auditory hallucinations Though content/process: There is no evidence of any delusional thought content and thought process is linear and goal-directed. Memory and concentration: AOX3, grossly intact for the purposes of this session. Can spell "WORLD" backwards Judgment and insight: Fair. STRENGTHS/WEAKNESSES: Strengths that the patient is resilient. Weakness is that the patient has severe mental illness and history of nonadherence to treatment. INTELLECT: average IMPRESSIONS: Bipolar 1 disorder, depressive episode Cannabis use disorder Rule out PTSD Nicotine dependence PLAN: -Patient is admitted under voluntary status to MHU for stabilization of psychiatric symptoms and safety. Patient signed adult voluntary form and medication consent and is placed in patient's chart. -Medications : We will discontinue oral Haldol at this time as the patient received Haldol Decanoate. We'll continue Clozaril at 50 mg by mouth at bedtime. We will start Cogentin 0.5 mg by mouth twice a day for EPS side effects. We will start Prozac at 20 mg daily for bipolar depression. Continue melatonin 6 mg by mouth at bedtime for insomnia. -Ativan and Haldol PRN for agitation/aggression -Patient does not have a true Haldol ALLERGY. -Patient was counselled on substance abuse and desired to cut back on use -Patient was informed of the risks, benefits and side effects of the medication and patient verbally consented to taking the medications. Patient signed med consent form and was placed in chart. -Internal Medicine consult to perform medical evaluation and physical. -NRT - nicotine patch -SW on board for discharge planning. Encourage patient to participate in groups to work on coping skills. 03/07/22 12:53
[2022-03-07] MEDS: BENZTROPINE MESYLATE 0.5 MG TAB PO SCH (20:31)
[2022-03-07] MEDS ORDERED: DIVALPROEX 500 MG TABLET.DR PO SCH (21:00)
[2022-03-07] MEDS ORDERED: cloZAPine 25 MG TAB PO SCH (21:00)
[2022-03-08 07:09] VITALS: BP 113/63; PULSE 94; RESP 16; TEMP 97.3
[2022-03-08] MEDS: BENZTROPINE MESYLATE 0.5 MG TAB PO SCH (08:14)
[2022-03-08] MEDS: NICOTINE 14MG/24HR PATCH TRANSDERM SCH (08:15)
[2022-03-08] MEDS ORDERED: FLUoxetine HCL 10 MG CAP PO SCH (09:00)
[2022-03-08] MEDS ORDERED: FLUoxetine HCL 20 MG CAP PO SCH (09:00)
[2022-03-08 09:02] LABS: Clozapine (Clozaril) <25 ng/mL (200-700); Norclozapine <25 ng/mL (200-700)
--- NOTE | 2022-03-08 11:59 | P.DS ---
Providers Date of admission: 03/07/22 00:29 Expected date of discharge: 03/08/22 Attending physician: Desean Merida MD Consults: 03/07/22 00:37 Consult Physician Routine Consulting Provider: Mounika Physician Consult Reason/Comments: Medical H&P Do you want consulting provider notified?: Yes Primary care physician: Physician Nonstaff - Discharge Diagnosis(es) (1) Bipolar 1 disorder, depressed Current Visit: Yes Status: Acute Priority: High (2) Cannabis use disorder, mild, abuse Current Visit: Yes Status: Chronic Priority: Medium (3) Nicotine dependence Current Visit: Yes Status: Chronic Priority: Medium Hospital Course: Admission HPI: Patient is a , unemployed, 31-year-old female with significant history of bipolar disorder presenting to the hospital for suicidal ideation. Patient presented to the hospital on 03/06/2022, brought in by law enforcement for suicidal ideation. The patient reported to the EPS nurse that she has been feeling increasingly suicidal and depressed ever since being discharged from [facility] approximately 2 weeks ago. The patient states that just before she was discharged from [facility], her informed her that he was going to divorce her. She further reports that she was placed on Haldol at [facility] and that she is ALLERGIC to this medication and has been making her feel "more depressed and restless." Despite her suicidal ideation, the patient reports no intention or plan at this time. She reports that she did not attempt. She is currently denying any homicidal ideation, intention, and/or plan. She does report significant symptoms of hopelessness, helplessness, and "feeling like my life is a wreck." The patient is currently denying any significant symptoms of psychosis or breanna at this time. She does report that she had some difficulty with sleep over the past few days however is not reporting any excessive energy, grandiosity, racing thoughts, or mood lability. During her last admission, the patient was endorsing significant delusional thoughts however is not endorsing any delusional thought content today. She is not reporting any bizarre grandiose delusions. While at [facility], the patient was administered Haldol Decanoate 100 mg IM. She was also discharged on a regimen of Haldol 10 mg by mouth twice a day, Clozaril 100 mg by mouth at bedtime, and Depakote 1500 mg by mouth at bedtime. Aside from her feelings of restlessness, the patient reports no other issues regarding these medications. She is reports that she does not like the Haldol as she does not feel like she is able to focus or be as energetic as before. The patient was educated that when she is not in a manic state, feeling normal would feel depressed by comparison to her breanna. The patient signed herself voluntarily into the psychiatric unit. Patient states that she has been his diagnoses of bipolar disorder. Patient has trialed numerous psychiatric medications and was most recently on Haldol Decanoate, Haldol, Clozaril, and Depakote. She was last hospitalized at [facility] for approximately one month and was discharged 2 weeks ago. She is currently open with [facility] however states that she does not want to continue there. She does report a history of 3 prior suicide attempts in the past. Hospital course: Upon admission to the unit patient was initially presenting as euthymic although endorsing depressive symptoms. Patient was however directable and agreeable to commence treatment. Patient got along well with other patients on the unit and followed unit protocol. Patient was compliant with the medications and denied any side effects throughout hospital course. Patient was started on her home medications of Clozaril and melatonin. Her oral Haldol was discontinued as the patient did receive Haldol decanoate. She was started on Cogentin and Prozac for management of the EPS side effects as well as for bipolar depression. Patient spoke of her stressors and engaged in therapy both group and individual. Patient was also seen by medical team for history and physical exam. The patient remained primarily concerned about her housing situation. She is welcome back to her mother's home however expresses concern that she would require long-term treatment in a psychiatric facility. She is desiring to be accepted at [facility]. We discussed at length that depressive feelings for her and considered euthymic and normal feelings for those who have not had breanna in the past. The patient has been tolerated her Haldol Decanoate well. Haldol is not a true ALLERGY for this patient. She is uncertain as to when she received Haldol Decanoate but she approximates it was a week prior to her discharge from [facility]. On the day of discharge, the patient is not reporting any suicidal or homicidal ideation, intention, and/or plan. She is denying any auditory or visual hallucinations. She is not reporting any paranoia or other delusions. The patient denies any significant manic symptoms. She is currently not endorsing any grandiosity, racing thoughts, or mood lability. She has been calm and cooperative and appropriate with staff. The patient does have a significant history of substance abuse however was counseled on abstaining from all substances including alcohol and marijuana. The patient was encouraged to be adherent with her medications and follow-up with their outpatient appointments for mental health as well as with her primary care physician. Prior to discharge, family meeting will be arranged by social work manager to answer questions and ensure safety. As the patient did not display any significant criteria for continued hospitalization, she was subsequently discharged. Mental status exam: General Appearance: Patient appears to be stated age is alert, pleasant, and cooperative. Patient is in no acute distress and has fair hygiene and grooming Behavior: Patient is calmly seated without any agitated behavior. Speech: Patient's speech is fluent and nonpressured. Mood/Affect: Patient reports their mood is "doing okay, just a little down.", affect is congruent and euthymic. Suicidality/Homicidality: Patient denies having any suicidal or homicidal ideation intent or plan. Perceptions: Patient denies any auditory or visual hallucinations. Though content/process: There is no evidence of any delusional thought content and thought process is linear and goal-directed. Patient is future oriented. Memory and concentration: AOX3, grossly intact for the purposes of this session. Can spell "WORLD" backwards correctly. Judgment and insight: Improved with guarded prognosis Vital Signs Temp 97.3 F L 03/08/22 07:00 Pulse 94 03/08/22 07:00 Resp 16 03/08/22 07:00 BP 113/63 03/08/22 07:00 Pulse Ox 97 03/07/22 01:20 Impression: Bipolar 1 disorder, depressive episode Cannabis use disorder Nicotine dependence Plan: -Continue with discharge today as patient has improved and stabilized psychiatrically and is not currently an imminent threat to self and/or others. Patient will remain at chronically elevated risk for harm to self and/or others due to her history of nonadherence to treatment and the severity of her mental illness. -Continue medications: Prozac 20 mg by mouth daily for bipolar depression Depakote 1500 mg by mouth at bedtime for mood stabilization Cogentin 0.5 mg by mouth twice a day for EPS side effects Melatonin 6 mg by mouth at bedtime for insomnia Clozaril 100 mg at bedtime for psychosis/mood stabilization. The patient reportedly received Haldol Decanoate. She is to continue receiving Haldol Decanoate injections daily 28 days. She reportedly received the injectible while at [facility]. We are unable to determine when exactly the medication was last administered.We recommend [facility] to continue managing her Haldol. In the meantime, we will discharge patient with clozaril. (ANC within normal limits). -Patient was counseled on the need for medication compliance and appropriate follow-up at mental health and also primary care for medical issues. Patient verbalized understanding and agreed. -Social work to arrange for and conduct family meeting to ensure safety upon discharge and answer any questions/concerns. Social work also to arrange for patients follow up appointments with [facility] for psychiatric care along with follow up with primary care provider. -Patient counseled on abstaining from recreational drugs and marijuana and alcohol. Was informed/educated on the adverse effects on their physical and mental health. Patient verbally agreed and understood. Patient was offered substance abuse treatment however declined at this time. -Patient was instructed to return to the hospital or seek immediate medical care if their psychiatric or medical symptoms do worsen or reoccur. -Psychoeducation and supportive therapy provided to patient. Risks and benefits of pharmacological treatment versus the risks and benefits of nontreatment weight and discussed. Informed consent discussion held. Common side effects of psychotropics discussed such as, but not limited to headache, GI disturbance, sexual dysfunction, movement disorders, sedation, and orthostatic hypotension. Life threatening and blackbox warnings of prescribed medications also discussed. Potential risks of operating a vehicle or heavy machinery discussed with patient at length. Advised on importance of compliance and a reliable and responsible manner. Patient advised to review FDA consumer labeling of all medications prior to taking. Patient verbalized understanding of potential risks, and agrees with current treatment plan. Patient advised to medically contact physician/emergency personnel if any acute changes in condition occur. Allergies Allergy/AdvReac Type Severity Reaction Status Date / Time bupropion HCl Allergy Rash/Hives Verified 03/06/22 18:17 [From Wellbutrin] vortioxetine Allergy Unknown Verified 03/06/22 18:17 [From Trintellix] citalopram hydrobromide AdvReac manic Verified 03/06/22 18:17 [From Celexa] duloxetine HCl AdvReac manic Verified 03/06/22 18:17 [From Cymbalta] escitalopram oxalate AdvReac manic Verified 03/06/22 18:17 [From Lexapro] haloperidol [From Haldol] AdvReac Nausea & Verified 03/06/22 18:17 Vomiting Laboratory Results WBC 9.4 k/uL (3.8-10.6) 03/06/22 20:54 RBC 4.70 m/uL (3.80-5.40) 03/06/22 20:54 Hgb 13.8 gm/dL (11.4-16.0) 03/06/22 20:54 Hct 42.4 % (34.0-46.0) 03/06/22 20:54 MCV 90.1 fL (80.0-100.0) 03/06/22 20:54 MCH 29.4 pg (25.0-35.0) 03/06/22 20:54 MCHC 32.7 g/dL (31.0-37.0) 03/06/22 20:54 RDW 12.2 % (11.5-15.5) 03/06/22 20:54 Plt Count 207 k/uL (150-450) 03/06/22 20:54 MPV 8.3 03/06/22 20:54 Neutrophils % 60 % 03/06/22 20:54 Lymphocytes % 30 % 03/06/22 20:54 Monocytes % 7 % 03/06/22 20:54 Eosinophils % 1 % 03/06/22 20:54 Basophils % 0 % 03/06/22 20:54 Neutrophils # 5.6 k/uL (1.3-7.7) 03/06/22 20:54 Lymphocytes # 2.8 k/uL (1.0-4.8) 03/06/22 20:54 Monocytes # 0.6 k/uL (0-1.0) 03/06/22 20:54 Eosinophils # 0.1 k/uL (0-0.7) 03/06/22 20:54 Basophils # 0.0 k/uL (0-0.2) 03/06/22 20:54 Sodium 137 mmol/L (137-145) 03/06/22 20:54 Potassium 4.2 mmol/L (3.5-5.1) 03/06/22 20:54 Chloride 103 mmol/L (98-107) 03/06/22 20:54 Carbon Dioxide 29 mmol/L (22-30) 03/06/22 20:54 Anion Gap 5 mmol/L 03/06/22 20:54 BUN 7 mg/dL (7-17) 03/06/22 20:54 Creatinine 0.66 mg/dL (0.52-1.04) 03/06/22 20:54 Est GFR (CKD-EPI)AfAm >90 (>60 ml/min/1.73 sqM) 03/06/22 20:54 Est GFR (CKD-EPI)NonAf >90 (>60 ml/min/1.73 sqM) 03/06/22 20:54 Glucose 91 mg/dL (74-99) 03/06/22 20:54 Calcium 8.8 mg/dL (8.4-10.2) 03/06/22 20:54 Total Bilirubin 0.8 mg/dL (0.2-1.3) 03/06/22 20:54 AST 24 U/L (14-36) 03/06/22 20:54 ALT 19 U/L (4-34) 03/06/22 20:54 Alkaline Phosphatase 121 U/L (38-126) 03/06/22 20:54 Total Protein 6.8 g/dL (6.3-8.2) 03/06/22 20:54 Albumin 3.9 g/dL (3.5-5.0) 03/06/22 20:54 Urine Color Yellow 03/06/22 17:30 Urine Appearance Turbid (Clear) H 03/06/22 17:30 Urine pH 6.0 (5.0-8.0) 03/06/22 17:30 Ur Specific [place] 1.027 (1.001-1.035) 03/06/22 17:30 Urine Protein Trace (Negative) H 03/06/22 17:30 Urine Glucose (UA) Negative (Negative) 03/06/22 17:30 Urine Ketones 1+ (Negative) H 03/06/22 17:30 Urine Blood Negative (Negative) 03/06/22 17:30 Urine Nitrite Negative (Negative) 03/06/22 17:30 Urine Bilirubin Negative (Negative) 03/06/22 17:30 Urine Urobilinogen 4.0 mg/dL (<2.0) 03/06/22 17:30 Ur Leukocyte Esterase Negative (Negative) 03/06/22 17:30 Urine WBC 3 /hpf (0-5) 03/06/22 17:30 Ur Squamous Epith Cells 5 /hpf (0-4) H 03/06/22 17:30 Amorphous Sediment Occasional /hpf (None) H 03/06/22 17:30 Urine Mucus Few /hpf (None) H 03/06/22 17:30 Urine HCG, Qual Not Detected (Not Detectd) 03/06/22 17:30 Urine Opiates Screen Not Detected (NotDetected) 03/06/22 17:30 Ur Oxycodone Screen Not Detected (NotDetected) 03/06/22 17:30 Urine Methadone Screen Not Detected (NotDetected) 03/06/22 17:30 Ur Propoxyphene Screen Not Detected (NotDetected) 03/06/22 17:30 Ur Barbiturates Screen Not Detected (NotDetected) 03/06/22 17:30 Valproic Acid <10.0 ug/mL 03/07/22 07:22 U Tricyclic Antidepress Not Detected (NotDetected) 03/06/22 17:30 Ur Phencyclidine Scrn Not Detected (NotDetected) 03/06/22 17:30 Clozapine <25 ng/mL (200-700) L 03/07/22:22 Norclozapine <25 ng/mL (200-700) 03/07/22 07:22 Ur Amphetamines Screen Not Detected (NotDetected) 03/06/22 17:30 U Methamphetamines Scrn Not Detected (NotDetected) 03/06/22 17:30 U Benzodiazepines Scrn Not Detected (NotDetected) 03/06/22 17:30 Urine Cocaine Screen Not Detected (NotDetected) 03/06/22 17:30 U Marijuana (THC) Screen Detected (NotDetected) H 03/06/22 17:30 Coronavirus (PCR) Not Detected (Not Detectd) 03/06/22 20:54 Patient Condition at Discharge: Stable Plan - Discharge Summary Discharge Rx Participant: No New Discharge Prescriptions: New FLUoxetine HCL [PROzac] 20 mg PO DAILY 30 Days cap Benztropine Mesylate [Cogentin] 0.5 mg PO BID 30 Days tab Divalproex [Depakote] 1,500 mg PO HS 30 Days tablet Melatonin 6 mg PO HS 30 Days tablet Continue cloZAPine [Clozaril] 100 mg PO HS 30 Days tab Discontinued haloperidoL [Haldol] 10 mg PO BID Melatonin 6 mg PO HS 30 Days tablet Divalproex Sodium [Depakote] 1,500 mg PO HS Discharge Medication List Benztropine Mesylate [Cogentin] 0.5 mg PO BID 30 Days tab 03/08/22 [Rx] Divalproex [Depakote] 1,500 mg PO HS 30 Days tablet 03/08/22 [Rx] FLUoxetine HCL [PROzac] 20 mg PO DAILY 30 Days cap 03/08/22 [Rx] Melatonin 6 mg PO HS 30 Days tablet 03/08/22 [Rx] cloZAPine [Clozaril] 100 mg PO HS 30 Days tab 03/08/22 [Rx] Follow up Appointment(s)/Referral(s): [facility] [Outside] - 03/12/22 1:00 pm (with Mateo ) Radhataff,Physician [Primary Care Provider] - 1-2 days Patient Instructions/Handouts: How to Stop Smoking (ED), Bipolar Disorder (ED) Discharge Disposition: HOME SELF-CARE
== END 2022-03-08 12:27 | disposition home or self-care (01) | DRG 885 ==
LOC: EC 16:29 → 3MHU 03-07 00:29
PROVIDERS: ADMIT Psychiatry & Neurology Psychiatry; ATTEND Psychiatry & Neurology Psychiatry
DX: F31.30 Bipolar disorder, current episode depressed, mild or moderate severity, unspecified (principal); R45.851 Suicidal ideations; F14.11 Cocaine abuse, in remission; Z20.822 Contact with and (suspected) exposure to COVID-19; F10.10 Alcohol abuse, uncomplicated; F12.10 Cannabis abuse, uncomplicated; F41.9 Anxiety disorder, unspecified; F17.210 Nicotine dependence, cigarettes, uncomplicated; I10 Essential (primary) hypertension; I73.00 Raynaud's syndrome without gangrene; K58.9 Irritable bowel syndrome, unspecified; G47.00 Insomnia, unspecified; E80.4 Gilbert syndrome; Z79.899 Other long term (current) drug therapy; Z91.51 Personal history of suicidal behavior; Z90.49 Acquired absence of other specified parts of digestive tract; Z87.19 Personal history of other diseases of the digestive system; Z98.890 Other specified postprocedural states; Z56.0 Unemployment, unspecified; Z71.41 Alcohol abuse counseling and surveillance of alcoholic; Z71.51 Drug abuse counseling and surveillance of drug abuser; Z88.8 Allergy status to other drugs, medicaments and biological substances; Z82.49 Family history of ischemic heart disease and other diseases of the circulatory system; Z83.3 Family history of diabetes mellitus; Z82.5 Family history of asthma and other chronic lower respiratory diseases; Z81.8 Family history of other mental and behavioral disorders
CPT/HCPCS: 36415; 80053; 80159; 80164; 80306; 81001; 81025; 82075; 85025; 87635; 99285